=== PATIENT | male | born 1935 | race Caucasian/White ===

== ENCOUNTER → 2016-10-14 | Outpatient (CLI) | payer OTHER | LOC: FIMAGING 15:50 | PROVIDERS: ATTEND Internal Medicine Infectious Disease | DX: A31.0 Pulmonary mycobacterial infection (principal); K44.9 Diaphragmatic hernia without obstruction or gangrene; I25.10 Atherosclerotic heart disease of native coronary artery without angina pectoris ==

== ENCOUNTER 2016-10-24 13:33 | Inpatient (IN) | payer OTHER ==
--- NOTE | 2016-10-24 14:09 | EDPHY ---
H & P Stated Complaint: Having more problems with O2 levels over past few days; increased MEDINA Source: Patient, Family Exam Limitations: No limitations - Personal History Current Tetanus Diphtheria and Acellular Pertussis (TDAP): Unsure Tetanus Vaccine Date: UNSURE - Medical/Surgical History Hx Asthma: No Hx Chronic Respiratory Disease: Yes Hx Diabetes: No Hx Cardiac Disease: No Hx Renal Disease: No Hx Cirrhosis: No Hx Alcoholism: No Hx HIV/AIDS: No Hx Splenectomy or Spleen Trauma: No Other PMH: Chronic respiratory disease, appendectomy; constipation; green light procedure for enlarged prostate on 06/05/15. - Social History Smoking Status: Former smoker HPI/ROS: CHIEF COMPLAINT: Shortness of breath, low oxygen saturation HISTORY OF PRESENT ILLNESS: Patient complains of increasing shortness of breath and decreasing oxygen saturation. He has history of bronchiectasis and ANGELA. This has been present for nearly 3 years. He has been dependent on 2 L oxygen for the past year. He was doing well until several weeks ago. At that time he noticed some increasing shortness of breath. He noticed a significant frame changer the past 2-3 days. Prior to this, he was able to ambulate nearly 1/ 4 mi and exercise regularly with his supplemental oxygen. Two days ago he has a significant decrease in his ability to ambulate. He says that he has difficulty walking to other rooms in the home without having to stop. He does have a pulse oximeter at home, he notes that he will drop into the upper 70s when ambulating slowly. He has had no chest pain or fever. Minimal cough and nothing new from his baseline. No back pain. No abdominal pain. No lightheadedness or syncope. Does have a history of PE that treated with Coumadin last year. He has been off anticoagulants for the past several months. 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 He primarily sees Dr. Davin Dejesus for this. He had a CT scan on May 16 of this month that showed some worsening of the bronchiectasis and mucous plugging. He has also seen by certified technician Dr. Martin , but has not seen him since last year. REVIEW OF SYSTEMS: Ten systems reviewed and are negative unless otherwise noted in the HPI PERTINENT MEDICAL HISTORY: Mycobacterium avium intracellular SOCIAL HISTORY: Nonsmoker. Lives at home with his . EXAMINATION General Appearance: Alert, no distress Head: normocephalic, atraumatic Eyes: Pupils equal and round, no conjunctival pallor or injection ENT, Mouth: Mucous membranes moist Neck: Normal inspection, supple, non-tender Respiratory: Scattered rhonchi and crackles throughout. Diminishment throughout. No wheezing. No retractions. No respiratory distress. Cardiovascular: Regular rate and rhythm. No murmur. Gastrointestinal: Abdomen is soft and nontender Back: non-tender, no bony abnormalities Neurological: GCS 15. A&O, nonfocal, normal gait Skin: Warm and dry, no rash Extremities: Nontender, no pedal edema Psychiatric: Mood and affect normal DIFFERENTIAL DIAGNOSES: Including but not limited to bronchiectasis, mucus plugging, pneumonia, bronchitis, PE MDM: 2:00 p.m. Increasing dyspnea the patient with bronchiectasis and mycobacterium avium intracellular. No chest pain. He was in the upper 80s ambulating with his oxygen on to his room. He reports as low as upper 70s at home with his 2 L oxygen until he rest. Vital signs are otherwise stable in no acute distress. 2:30 p.m. I discussed the case with Dr. Montenegro. He will personally evaluate the patient. We are in agreement that the patient will need a CT scan of the chest with angiography. Most recent CT scan was without contrast. Given his history of PE, recent abrupt change in dyspnea, and hypoxia, I have ordered the CT angio of the chest. 3:12 p.m. Patient has been evaluated by his physician Dr. Davin Dejesus. Dr. Dejesus and Dr. Montenegro discussed the case. They are in agreement to proceed with the plan of CT angiography and admission for further care. He remained stable in no acute distress with mild hypoxia with exertion. 3:29 p.m. Notified by radiologist Dr. Garduno. CT scan of the chest reveals no PE. There are other findings as noted in the impression, consistent with that of the CT scan on October 14. Proceed with admission for symptomatic care and possible therapeutic bronchoscopy. Patient and spouse are requesting this and comfortable with this plan. 3:50 p.m. I discussed the case with Dr. Louis. She has admitted to her service. He is admitted to [facility], in stable condition SUPERVISION: Patient was evaluated in conjunction with the supervising physician. Please see their note for details. (Lauro Krishna) Constitutional: Initial Vital Signs Temperature (C) 36.4 C 10/24/16 13:36 Heart Rate 81 10/24/16 13:36 Respiratory Rate 20 10/24/16 13:36 Blood Pressure 121/60 H 10/24/16 13:36 O2 Sat (%) 91 L 10/24/16 13:36 O2 Delivery Mode Nasal Cannula O2 (L/minute) 2 Allergies/Adverse Reactions: No Known Allergies Allergy (Verified 10/24/16 13:35) Home Medications: Medication Instructions Recorded Ipratropium/Albuterol [Duoneb (*)] 3 ml IH DAILY 08/31/15 Medical Decision Making - Diagnostics Imaging Results: Imaging Impressions Chest X-Ray 10/24/16 13:57 Impression: Exacerbation of chronic airways disease and bronchiectasis with probable worsening atelectasis and mucous plugging in the lower lung zones. Chest/Thorax CTA 10/24/16 14:32 Impression: 1. No visible pulmonary embolus. 2. Stable findings of ANGELA. 3. Additional findings as above. Findings discussed with Lauro Krishna on 10/24/2016 at 1525 hours. ED Course/Re-evaluation: I also saw the patient and reviewed his history of previous pulmonary embolus and noncompliance with medications secondary side effects. He has mac. I reviewed his CT from a week ago that was noncontrast that showed extensive mucous plugging. Exam shows some inspiratory expiratory rhonchi. I recommended CT angiogram chest to rule out pulmonary embolus and the patient agrees to this. I have also discussed patient's condition and case with Dr. Dejesus, infectious Disease, who agrees with treatment plan (Alberto Montenegro) - Data Points Laboratory Results: Laboratory Results 10/24/16 14:05 10/24/16 14:05 10/24/16 10/24/16 10/24/16 14:20 14:05 14:05 WBC RBC Hgb Hct MCV MCH MCHC RDW Plt Count MPV Neut % (Auto) Lymph % (Auto) Harvey % (Auto) Eos % (Auto) Baso % (Auto) Nucleat RBC Rel Count Absolute Neuts (auto) Absolute Lymphs (auto) Absolute Monos (auto) Absolute Eos (auto) Absolute Basos (auto) Absolute Nucleated RBC Immature Gran % Immature Gran # PT 14.2 SEC SEC REJ (12.0-15.0) INR 1.11 TNP (0.83-1.16) APTT 27.7 SEC SEC TNP (23.0-38.0) VBG Lactic Acid Sodium 130 mEq/L L mEq/L (134-144) Potassium 4.0 mEq/L mEq/L (3.5-5.2) Chloride 98 mEq/L mEq/L (97-110) Carbon Dioxide 23 mEq/l mEq/l (22-31) Anion Gap 9 mEq/L mEq/L (8-16) BUN 10 mg/dL mg/dL (7-23) Creatinine 0.7 mg/dL mg/dL (0.7-1.3) Estimated GFR > 60 Glucose 163 mg/dL H mg/dL (70-100) Calcium 9.0 mg/dL mg/dL (8.5-10.4) Troponin I < 0.012 ng/mL ng/mL (0-0.034) NT-Pro-B Natriuret Pep 366 pg/mL pg/mL (0-450) 10/24/16 10/24/16 14:05 14:05 WBC 14.20 10^3/uL H 10^3/uL (3.80-9.50) RBC 4.25 10^6/uL L 10^6/uL (4.40-6.38) Hgb 13.7 g/dL g/dL (13.7-17.5) Hct 39.5 % L % (40.0-51.0) MCV 92.9 fL fL (81.5-99.8) MCH 32.2 pg pg (27.9-34.1) MCHC 34.7 g/dL g/dL (32.4-36.7) RDW 14.3 % % (11.5-15.2) Plt Count 322 10^3/uL 10^3/uL (150-400) MPV 10.2 fL fL (8.7-11.7) Neut % (Auto) 77.5 % H % (39.3-74.2) Lymph % (Auto) 10.7 % L % (15.0-45.0) Harvey % (Auto) 9.1 % % (4.5-13.0) Eos % (Auto) 1.6 % % (0.6-7.6) Baso % (Auto) 0.4 % % (0.3-1.7) Nucleat RBC Rel Count 0.0 % % (0.0-0.2) Absolute Neuts (auto) 11.00 10^3/uL H 10^3/uL (1.70-6.50) Absolute Lymphs (auto) 1.52 10^3/uL 10^3/uL (1.00-3.00) Absolute Monos (auto) 1.29 10^3/uL H 10^3/uL (0.30-0.80) Absolute Eos (auto) 0.23 10^3/uL 10^3/uL (0.03-0.40) Absolute Basos (auto) 0.06 10^3/uL 10^3/uL (0.02-0.10) Absolute Nucleated RBC 0.00 10^3/uL 10^3/uL (0-0.01) Immature Gran % 0.7 % % (0.0-1.1) Immature Gran # 0.10 10^3/uL 10^3/uL (0.00-0.10) PT INR APTT VBG Lactic Acid 1.4 mmol/L mmol/L (0.7-2.1) Sodium Potassium Chloride Carbon Dioxide Anion Gap BUN Creatinine Estimated GFR Glucose Calcium Troponin I NT-Pro-B Natriuret Pep Medications Given: Discontinued Medications Sodium Chloride (Ns) 500 mls @ 0 mls/hr IV ONCE ONE; Wide Open PRN Reason: Protocol Stop: 10/24/16 14:33 Last Admin: 10/24/16 14:40 Dose: 500 mls Departure - Departure Disposition: [facility] Clinical Impression: Mycobacterium avium-intracellulare complex, Hypoxia Bronchiectasis Qualifiers: Bronchiectasis type: with acute exacerbation Qualified Code(s): J47.1 - Bronchiectasis with (acute) exacerbation Condition: Good
[2016-10-24 14:20] LABS: % IMMATURE GRANULYOCYTES 0.7 % (0.0-1.1); ADD DIFF? NO; ADD MORPH? NO; ADD SCAN? NO; ATYPICAL LYMPHOCYTE FLAG 20 (0-99); FRAGMENT RBC FLAG 0 (0-99); HEMATOCRIT 39.5 % (40.0-51.0); HEMOGLOBIN 13.7 g/dL (13.7-17.5); LEFT SHIFT FLG 10 (0-99); LIPEMIA HEMOLYSIS FLAG 90 (0-99); MEAN CELL HEMOGLOBIN 32.2 pg (27.9-34.1); MEAN CELL HEMOGLOBIN CONCENTR. 34.7 g/dL (32.4-36.7); MEAN CELL VOLUME 92.9 fL (81.5-99.8); MEAN PLATELET VOLUME 10.2 fL (8.7-11.7); PLATELET CLUMPS FLAG 10 (0-99); PLATELET COUNT 322 10^3/uL (150-400); RED BLOOD CELL COUNT 4.25 10^6/uL (4.40-6.38); RED CELL DISTRIBUTION WIDTH 14.3 % (11.5-15.2)
[2016-10-24] MEDS ORDERED: NS 500 ML IV ONE (14:32)
[2016-10-24 14:38] LABS: ANION GAP 9 mEq/L (8-16); CARBON DIOXIDE 23 mEq/l (22-31); CHLORIDE 98 mEq/L (97-110); CREATININE 0.7 mg/dL (0.7-1.3); GLOMERULAR FILTRATION RATE > 60; GLUCOSE 163 mg/dL (70-100); SODIUM 130 mEq/L (134-144)
[2016-10-24 14:40] LABS: APTT 27.7 SEC (23.0-38.0); INR 1.11 (0.83-1.16); PROTIME(PATIENT) 14.2 SEC (12.0-15.0)
[2016-10-24] MEDS ORDERED: IOPAMIDOL (ISOVUE 370) 100 ML BTL IV ONE (14:47)
[2016-10-24 14:49] LABS: TROPONIN I < 0.012 ng/mL (0-0.034)
[2016-10-24] MEDS ORDERED: PROMETHAZINE HCL 25 MG/ML INJ IVP PRN (17:11)
[2016-10-24] MEDS ORDERED: ONDANSETRON 4 MG/2 ML VIAL IVP PRN (17:11)
[2016-10-24] MEDS ORDERED: oxyCODONE IR 5 MG TAB PO PRN (17:11)
[2016-10-24] MEDS ORDERED: ALBUTEROL 3 ML DEYVIAL IH PRN (17:11)
[2016-10-24] MEDS ORDERED: ONDANSETRON DISINTEGRATING 4 MG TAB PO PRN (17:11)
[2016-10-24] MEDS ORDERED: ACETAMINOPHEN 325 MG TAB PO PRN (17:11)
[2016-10-24] MEDS ORDERED: ACETYLCYSTEINE 10% 30 ML VIAL IH SCH (18:00)
[2016-10-24 19:06] LABS: COLOR PALE YELLOW; LEUKOCYTE ESTERASE,URINE NEGATIVE (NEGATIVE); NITRITE,URINE NEGATIVE (NEGATIVE)
--- NOTE | 2016-10-24 19:16 | PDGENHP ---
History and Physical - Chief Complaint MEDINA - History of Present Illness 80 yo M with PMH of severe bronchiectasis and ANGELA infection that he has been off of antibiotics for due to personal choice for quite some time (sounds like at least one year) presenting with increased dyspnea on exertion and desaturations to the low 70s with even minimal exertion while on his usual 2L of supplemental oxygen. He notes that he has had a subacute decline over the last year but had been relatively stable up until the last several days when he had what he describes as a "crisis". He notes that he couldn't even get to the car or to the bathroom without becoming incredibly short of breath. At rest he feels pretty much fine. He denies fevers, chills, chest pain, palpitations or aspirating recently. He does also note that he generally is able to keep his lungs healthy by coughing and getting up mucous, but in the last few days he has not been able to get any mucous up. In terms of the ANGELA infection, he states that he has stopped seeing [facility] and sees Dr. Dejesus intermittently and is hoping that he will be able to figure out a treatment for him other than antibiotics. It sounds as if he had an episode of near syncope 1 year ago that occurred shortly after taking the antibiotics, and he and his were concerned this was a response to the abx and they decided he should stop taking them. History Information - Allergies/Home Medication List Allergies/Adverse Reactions: No Known Allergies Allergy (Verified 10/24/16 13:35) Home Medications: Ipratropium/Albuterol [Duoneb (*)] 3 ml IH DAILY 08/31/15 [Last Taken Unknown] I have personally reviewed and updated: family history, medical history, social history, surgical history - Past Medical History pulmonary embolism (diagnosed 1 year ago, off of AC) Additional medical history: severe bronchiectasis. ANGELA. Chronic hypoxic respiratory failure on 2L. chronic dysphagia. BPH - Surgical History Additional surgical history: laser prostate surgery - Family History Positive for: cancer (father of kidney cancer) - Social History Smoking Status: Former smoker Alcohol Use: Rarely Drug Use: None Additional social history: , retired from [employer] Review of Systems ROS: 10pt was reviewed & negative except for what was stated in HPI & below Physical Exam Temp Pulse Resp BP Pulse Ox 36.9 C 64 20 140/83 H 97 10/24/16 16:55 10/24/16 16:55 10/24/16 16:55 10/24/16 16:55 10/24/16 16:55 O2 (L/minute) 2 Constitutional: no apparent distress, not in pain, chronically ill appearing Eyes: PERRL, anicteric sclera Ears, Nose, Mouth, Throat: moist mucous membranes, hearing normal Cardiovascular: regular rate and rhythym, no murmur, rub, or gallop, No edema Respiratory: no respiratory distress, reduced air movement, No respiratory distress Gastrointestinal: normoactive bowel sounds, soft, non-tender abdomen, no palpable masses Skin: warm, normal color Musculoskeletal: full muscle strength, no muscle tenderness Neurologic: AAOx3 Psychiatric: interacting appropriately, not anxious, not encephalopathic Lab Data & Imaging Review 10/24/16 14:05 10/24/16 14:05 WBC 14.20 10^3/uL (3.80-9.50) H 10/24/16 14:05 RBC 4.25 10^6/uL (4.40-6.38) L 10/24/16 14:05 Hgb 13.7 g/dL (13.7-17.5) 10/24/16 14:05 Hct 39.5 % (40.0-51.0) L 10/24/16 14:05 MCV 92.9 fL (81.5-99.8) 10/24/16 14:05 MCH 32.2 pg (27.9-34.1) 10/24/16 14:05 MCHC 34.7 g/dL (32.4-36.7) 10/24/16 14:05 RDW 14.3 % (11.5-15.2) 10/24/16 14:05 Plt Count 322 10^3/uL (150-400) 10/24/16 14:05 MPV 10.2 fL (8.7-11.7) 10/24/16 14:05 Neut % (Auto) 77.5 % (39.3-74.2) H 10/24/16 14:05 Lymph % (Auto) 10.7 % (15.0-45.0) L 10/24/16 14:05 Wise % (Auto) 9.1 % (4.5-13.0) 10/24/16 14:05 Eos % (Auto) 1.6 % (0.6-7.6) 10/24/16 14:05 Baso % (Auto) 0.4 % (0.3-1.7) 10/24/16 14:05 Nucleat RBC Rel Count 0.0 % (0.0-0.2) 10/24/16 14:05 Absolute Neuts (auto) 11.00 10^3/uL (1.70-6.50) H 10/24/16 14:05 Absolute Lymphs (auto) 1.52 10^3/uL (1.00-3.00) 10/24/16 14:05 Absolute Monos (auto) 1.29 10^3/uL (0.30-0.80) H 10/24/16 14:05 Absolute Eos (auto) 0.23 10^3/uL (0.03-0.40) 10/24/16 14:05 Absolute Basos (auto) 0.06 10^3/uL (0.02-0.10) 10/24/16 14:05 Absolute Nucleated RBC 0.00 10^3/uL (0-0.01) 10/24/16 14:05 Immature Gran % 0.7 % (0.0-1.1) 10/24/16 14:05 Immature Gran # 0.10 10^3/uL (0.00-0.10) 10/24/16 14:05 PT 14.2 SEC (12.0-15.0) 10/24/16 14:20 INR 1.11 (0.83-1.16) 10/24/16 14:20 APTT 27.7 SEC (23.0-38.0) 10/24/16 14:20 VBG Lactic Acid 1.4 mmol/L (0.7-2.1) 10/24/16 14:05 Sodium 130 mEq/L (134-144) L 10/24/16 14:05 Potassium 4.0 mEq/L (3.5-5.2) 10/24/16 14:05 Chloride 98 mEq/L (97-110) 10/24/16 14:05 Carbon Dioxide 23 mEq/l (22-31) 10/24/16 14:05 Anion Gap 9 mEq/L (8-16) 10/24/16 14:05 BUN 10 mg/dL (7-23) 10/24/16 14:05 Creatinine 0.7 mg/dL (0.7-1.3) 10/24/16 14:05 Estimated GFR > 60 10/24/16 14:05 Glucose 163 mg/dL (70-100) H 10/24/16 14:05 Calcium 9.0 mg/dL (8.5-10.4) 10/24/16 14:05 Troponin I < 0.012 ng/mL (0-0.034) 10/24/16 14:05 NT-Pro-B Natriuret Pep 366 pg/mL (0-450) 10/24/16 14:05 Visualized and Interpreted Chest x-ray results: Yes Chest X-Ray results: other (hyperexpanded) Visualized and Interpreted imaging results: Yes Interpretation: CTA--no PE, bronchiectasis, mucus plugging, multiple nodules-- stable c/w ANGELA Assessment & Plan Assessment: Bronchiectasis (Acute) Mycobacterium avium-intracellulare complex (Acute) Hypoxia (Acute) 80 yo M with hx of ANGELA and severe bronchiectasis pw acute on chronic hypoxic respiratory failure # acute on chronic hypoxic respiratory failure: with untreated ANGELA infection as well as severe bronchiectasis being the underlying etiology. CT chest w/o PE or other acute changes to explain abrupt worsening and significant desats on usual o2, suspect related largely to mucus plugging and progression of disease. Consulted pulmonary and plan is for bronch in am. For now, scheduled duonebs, albuterol prn, steroids, mucomyst, CPT vest, flutter valve, IS. # ANGELA: with chronic infection and plan for prolonged triple antibiotic therapy but patient has been unwilling to take abx for quite some time. He does follow with ID and will ask for them to consult while in house as well. Difficult to get a good sense from patient why he has refused abx other than the episode of near syncope and perhaps a lifelong reluctance to take antibiotics # severe bronchiectasis: as above, significant mucus plugging as well, bronch in am. Likely will continue to progress and decline. 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 Old records reviewed and summarized as above. Care plan reviewed with ED and DR. Longo of pulmonary. Further hx obtained from patients present at bedside.
[2016-10-24] MEDS: IPRATROPIUM/ALBUTEROL 3 ML DEYVIAL IH SCH (20:04)
[2016-10-24] MEDS: ACETYLCYSTEINE 10% 30 ML VIAL IH SCH (20:05)
[2016-10-24] MEDS: methylPREDNISolone SOD SUCC 125 MG/2 ML VIAL IVP SCH (20:50)
[2016-10-25] MEDS: methylPREDNISolone SOD SUCC 125 MG/2 ML VIAL IVP SCH ×2 (03:30→09:30)
[2016-10-25 06:12] LABS: % IMMATURE GRANULYOCYTES 0.8 % (0.0-1.1); ABSOLUTE IMMATURE GRANULOCYTES 0.07 10^3/uL (0.00-0.10); ADD DIFF? NO; ADD MORPH? NO; ADD SCAN? NO; ATYPICAL LYMPHOCYTE FLAG 20 (0-99); FRAGMENT RBC FLAG 0 (0-99); LEFT SHIFT FLG 10 (0-99); LIPEMIA HEMOLYSIS FLAG 90 (0-99); MEAN CELL HEMOGLOBIN 31.7 pg (27.9-34.1); MEAN CELL HEMOGLOBIN CONCENTR. 34.1 g/dL (32.4-36.7); MEAN CELL VOLUME 92.8 fL (81.5-99.8); MEAN PLATELET VOLUME 9.9 fL (8.7-11.7); PLATELET CLUMPS FLAG 0 (0-99); PLATELET COUNT 331 10^3/uL (150-400); RED BLOOD CELL COUNT 4.42 10^6/uL (4.40-6.38); RED CELL DISTRIBUTION WIDTH 14.2 % (11.5-15.2)
--- NOTE | 2016-10-25 06:18 | CPEKG ---
Heart Rate: 93 RR Interval: 645 P-R Interval: 212 QRSD Interval: 80 QT Interval: 368 QTC Interval: 458 P [place]: 74 QRS [place]: 76 EKG Severity - BORDERLINE ECG - EKG Impression: SINUS RHYTHM Electronically Signed By: Margarito Troy 27-Oct-2016 09:04:47
[2016-10-25] MEDS: IPRATROPIUM/ALBUTEROL 3 ML DEYVIAL IH SCH ×2 (06:20→11:30)
[2016-10-25 06:21] LABS: ANION GAP 8 mEq/L (8-16); CALCIUM 8.9 mg/dL (8.5-10.4); CARBON DIOXIDE 27 mEq/l (22-31); CHLORIDE 100 mEq/L (97-110); CREATININE 0.7 mg/dL (0.7-1.3); GLOMERULAR FILTRATION RATE > 60; GLUCOSE 153 mg/dL (70-100); POTASSIUM 4.8 mEq/L (3.5-5.2); SODIUM 135 mEq/L (134-144)
[2016-10-25 06:32] LABS: TROPONIN I < 0.012 ng/mL (0-0.034)
[2016-10-25] MEDS ORDERED: MIDAZOLAM 2 MG/2 ML VIAL ONE (08:00)
[2016-10-25] MEDS ORDERED: fentaNYL 100 MCG/2 ML INJ ONE (08:00)
[2016-10-25] MEDS ORDERED: LIDOCAINE 1% 300 MG/30 ML SDV ONE (08:06)
[2016-10-25] MEDS ORDERED: LIDOCAINE 2% JELLY 5 ML TUBE ONE (08:06)
[2016-10-25 08:09] VITALS: BP 120/54; TEMP 97.6
[2016-10-25] MEDS: ACETYLCYSTEINE 10% 30 ML VIAL IH SCH ×2 (08:11→11:30)
--- NOTE | 2016-10-25 08:30 | HOSPPROG ---
Hospitalist Progress Note Assessment/Plan: #Acute on chronic hypoxic resp failure: suspect mucus plug. Bronch normal. Cultures pending #ANGELA infection: FU Dr. Dejesus #DC today Subjective: no SOB Objective: Vital Signs Temp Pulse Resp BP Pulse Ox 36.4 C 96 18 120/54 L 2 L 10/25/16 08:04 10/25/16 08:04 10/25/16 08:04 10/25/16 08:04 10/25/16 08:04 Laboratory Results 10/25/16 06:00 10/25/16 06:00 10/24/16 10/25/16 10/26/16 05:59 05:59 05:59 Intake Total 1000 Output Total 2 Balance 998 PT 14.2 SEC (12.0-15.0) 10/24/16 14:20 INR 1.11 (0.83-1.16) 10/24/16 14:20 - Physical Exam Constitutional: no apparent distress, other (thin) Eyes: PERRL Ears, Nose, Mouth, Throat: moist mucous membranes, hearing normal Cardiovascular: regular rate and rhythym, no murmur, rub, or gallop Respiratory: no respiratory distress, no rales or rhonchi Gastrointestinal: normoactive bowel sounds, soft, non-tender abdomen Genitourinary: no bladder fullness Skin: warm Musculoskeletal: full muscle strength Neurologic: AAOx3 Psychiatric: interacting appropriately ICD10 Worksheet Patient Problems: Problems Problem Status Onset Bronchiectasis Acute Bronchiectasis Acute Dyspnea Acute Hyponatremia Acute Hypoxia Acute Leukocytosis Acute Mycobacterium avium-intracellulare complex Acute Urinary tract infection Acute
[2016-10-25] MEDS ORDERED: ENOXAPARIN 40 MG/0.4 ML SYR SC SCH (09:00)
--- NOTE | 2016-10-25 10:13 | GOP ---
[f rep st] OPERATIVE REPORT DATE OF OPERATION: 10/25/2016 SURGEON: Hussein Longo MD ANESTHESIA: Conscious sedation was achieved using a total of 3 mg IV Versed and 50 mcg of IV fentan yl without complication. PREOPERATIVE DIAGNOSIS: POSTOPERATIVE DIAGNOSIS: PROCEDURE PERFORMED: Bronchoalveolar lavage with conscious sedation. FINDINGS: INDICATIONS: Bronchiectasis. DESCRIPTION OF PROCEDURE: After an appropriate time-out was performed, topical lidocaine was spraye d in the oropharynx followed by advancement of the bronchoscope with additional lidocaine to vocal c ords. Of note, the vocal cords did not have paradoxical movement, but they did not open dramaticall y when taking a deep breath. Once inside the trachea, it appeared to be midline. There were small mucus plugs adherent to the wall. The main willow was very sharp, and both main stem bronchi were s lightly dilated. There was evidence of bronchiectasis and pitting in the right upper lobe orifice. There were minimal secretions seen throughout with tiny mucus plugs in scattered locations, but no major mucus plugging, no masses. There was erythema of the mucosa throughout the airways. In the a nterior segment of the right lower lobe, a bronchoalveolar lavage was performed using 3 aliquots of 40 cc of normal saline. None of these were bloody. Approximately 70 cc were returned of cloudy, ye llow-appearing fluid. In the left side, there was a similar appearance with minimal to no secretion s and no endobronchial lesions. Overall, the patient tolerated the procedure well, and there were n o complications. CONSENT: Informed consent was obtained from the patient prior to the administration of anesthesia. The risks and benefits of both the procedure and conscious sedation were explained in detail, and t he patient agreed to proceed. /[id number]/MODL
--- NOTE | 2016-10-25 10:53 | GCON ---
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 He was diagnosed in May of 2015 and did star t triple antibiotic therapy under the guidance of Infectious Disease. According to his , rosalino angulo, at the time he was traveling and had a near syncopal episode that resolved. He had a second epis ode of not feeling well on return from his travels, but no LFTs were checked at the time, and he has been reluctant to use the antibiotic since then. He has maintained reasonably well and is normally followed by Dr. Martin and Dr. Dejesus. He manages his bronchiectasis with once daily vibrating vest , DuoNeb, and postural drainage twice a day. At one time he was seeing Dr. Juan C Robbins at [facility] but has decided to stop going there because of the inconvenience. He maintains his oxygen satur ation using a concentrator at home and a portable ambulatory concentrator usually on setting 2, and at 2 recent outpatient visits had an oxygen saturation of 92%. He saw Dr. Dejesus on 10/22/2016 comp laining of shortness of breath and productive cough which were chronic. He urged antibiotics or sug gested that he should expect his lung disease to get worse, and the patient chose to discuss this at a later date. On 10/24, however, he developed increasing shortness of breath, and his oxygen satur ation dipped down to the 70% range while ambulating and was therefore brought to the hospital. He n oted that his breathing had been getting worse over the last few weeks, especially the last few days , and was requesting a bronchoscopy. On arrival, his oxygen saturation was relatively stable and wa s afebrile and explained the historical details to me this morning. PAST MEDICAL HISTORY: Includes: 1. Bronchiectasis, as described above. 2. Coronary artery disease. 3. 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 4. A tiny pulmonary embolism. I believe that was a couple years ago, and he did receive Coumadin t herapy for that. 5. Chronic hypoxemia on baseline 2 L/minute. 6. I think prostate cancer. I am not too sure about that. SURGICAL HISTORY: Includes inguinal hernia repair, tonsillectomy, appendectomy, and what sounds to be radiation beads in the past. SOCIAL HISTORY: He has a remote, nearly negligible smoking history. Drinks occasional alcohol but no recreational drugs. He has property in both [place] and [place] as well as [place] and serna s significantly better oxygen saturations at those levels. FAMILY HISTORY: Noncontributory, though does lack the Immotile Cilia syndrome. PHYSICAL EXAM: VITAL SIGNS: As I said, he has been afebrile. His blood pressure 120/54, heart rat e of 96, respirations 18, oxygen saturation was 98% on 2 L nasal cannula. GENERAL: He was awake an d alert. Thin but not cachectic. Spoke in full sentences, although his voice was quite quiet while talking to me this morning, which he said was baseline. He did not using accessory muscles for valerie athing. HEENT: Pupils equally round and reactive to light. Nonicteric and noninjected. Mucous me mbranes are moist without erythema. NECK: Supple without adenopathy or jugular vein distention. L UNGS: Breath sounds were somewhat coarse throughout, but no focal wheezing or decreased dullness or consolidation. HEART: Regular rate and rhythm without obvious murmur. ABDOMEN: Soft, nontender, nondistended without hepatosplenomegaly. EXTREMITIES: No clubbing, cyanosis, or edema. NEUROLOGI C: Nonfocal, including cranial nerves and deep tendon reflexes. LABORATORY DATA: His white count was 14.2 on arrival and after given steroids dropped to 9.2, hemat ocrit is 41, platelets of 331. Basic metabolic panel was normal. Urinalysis was normal. CT scan shows significant bronchiectasis without pulmonary embolism, particularly in the anterior ri ght lower lobe. There is some mucus plugging and multiple stable lung nodules, mildly prominent rig ht hilar lymph nodes. He has a moderate hiatal hernia. ASSESSMENT AND PLAN: 1. Significant bronchiectasis with oxygen desaturation. It is quite probable and possible that thi s is related to a mucus plug that has subsequently resolved. I think it was reasonable to proceed w ith bronchoscopy, which was done and dictated separately. There were no significant secretions duri ng the bronchoscopy. My suspicion is that it has been mobilized since then. The infiltrates on his CT scan were not dramatically changed, and there was no pulmonary embolism and no evidence of cardi ovascular issue to cause his transient hypoxemia. I had a lengthy discussion with both him and his after the bronchoscopy, talking about his management of his bronchiectasis. I urged them to fo llow the advice of his infectious disease doctor and use his antibiotics as prescribed. The episode that he was concerned about may not have been, in fact, related to the medications and could certai nly have been about oxygen saturation since it was, again, a transient episode. We discussed the ri sks including liver toxicity with those medications and that he would certainly reconsider those in the near future. In terms of mechanical management of that, I suggested that he use his vibrating v est twice a day in conjunction with his postural drainage, which he is already doing. He might also benefit from hypertonic saline nebulizers in addition to his DuoNeb. I might also consider an inha led corticosteroid to help minimize secretions moving forward. 2. Hypoxemia. This is a chronic problem. He is using a portable concentrator, and I suggested wei t he would just have to watch his settings very closely, and whatever it takes to maintain a saturat ion greater than 90% would be the appropriate level. /[id number]/MODL
[2016-10-25] MEDS ORDERED: MIDAZOLAM 2 MG/2 ML VIAL IVP ONE (11:05)
[2016-10-25] MEDS ORDERED: fentaNYL 100 MCG/2 ML INJ IVP ONE (11:05)
--- NOTE | 2016-10-25 12:29 | GDS ---
[f rep st] DISCHARGE SUMMARY DISCHARGE DIAGNOSES: 1. Dyspnea on exertion. 2. Acute on chronic hypoxic respiratory failure. 3. Mycobacterium avium-intracellulare severe bronchiectasis. 4. History of pulmonary embolism. 5. Leukocytosis. 6. Hyponatremia. HISTORY OF PRESENT ILLNESS: Patient is a 80-year-old male with history of severe bronchitis and a ANGELA infection in which he has been off antibiotics for at least a year per his personal choice who presented with increased dyspnea on exertion. He said his oxygen level dropped to the low 70s with even minimal exertion while using his normal 2 L of oxygen. He notes he has had a subacute decline over the last year but has been fairly stable up until the last several days which he describes as a "crisis." He noted that he could not even get to the car or the bathroom without becoming incredibly short of breath, but is fine at rest. Denies any fevers, chills or sweats. No nausea, vomiting, or diarrhea. In terms of the ANGELA infection, he intermittently sees Dr. Dejseus and was hoping to find another treatment besides antibiotics, because he states he had some sort of reaction. He had a near syncopal episode which he attributes to the antibiotics. HOSPITAL COURSE BY PROBLEM: 1. Acute on chronic hypoxemic respiratory failure: CT chest was negative for pulmonary embolism or acute infection. Likely mucous plug. Bronchoscopy was performed this morning, was unrevealing. Cultures are pending, which can be followed up as an outpatient. 2. 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 Martin, and continue aggressive pulmonary toileting. 3. Mycobacterium avium-intracellulare infection: The patient is previously seen at [facility], but most recently with Dr. Dejesus. Patient has personally chosen to take himself off antibiotics due to a near syncopal episode a year ago which he attributes to the antibiotics. I will have him follow up with Dr. Dejesus. At that time, culture data can be reviewed that was done here today. 4. History of pulmonary embolism. Off anticoagulation. CTA was negative for pulmonary embolism. 5. Leukocytosis: Resolved. There is no evidence of a new infection. He remains afebrile. 6. Hypovolemic/hyponatremia: This resolved. DISPOSITION: Patient stable for discharge. NEW MEDICATIONS: None. LABORATORY DATA: Pending respiratory cultures. FOLLOWUP: 1. Dr. Martin, Pulmonology. 2. Dr. Dejesus with Infectious Disease. /[id number]/MODL MTDD
[2016-10-25 13:00] VITALS: PULSE 80; RESP 22; O2SAT 100
== END 2016-10-25 13:00 | disposition home or self-care (01) | DRG 190 ==
LOC: F2N 17:43
PROVIDERS: ADMIT Internal Medicine; ATTEND Internal Medicine
PROC: 0B968ZX Drainage of Right Lower Lobe Bronchus, Via Natural or Artificial Opening Endoscopic, Diagnostic (ICD-10-PCS; principal; 2016-10-25 08:20)
DX: J47.9 Bronchiectasis, uncomplicated (principal); A31.0 Pulmonary mycobacterial infection; J96.21 Acute and chronic respiratory failure with hypoxia; E87.1 Hypo-osmolality and hyponatremia; R13.10 Dysphagia, unspecified; I25.10 Atherosclerotic heart disease of native coronary artery without angina pectoris; Z87.891 Personal history of nicotine dependence; Z86.711 Personal history of pulmonary embolism; Z79.01 Long term (current) use of anticoagulants
CPT/HCPCS: 92610-GN; G8996-GN-CI; G8997-GN-CI; G8998-GN-CI; J0171; J1650; J2250; J3010; Q9967

== ENCOUNTER 2016-11-01 08:51 | Emergency (ER) | payer OTHER ==
--- NOTE | 2016-11-01 09:04 | CPEKG ---
Heart Rate: 71 RR Interval: 845 P-R Interval: 180 QRSD Interval: 88 QT Interval: 400 QTC Interval: 435 P [place]: 65 QRS [place]: 74 T Wave [place]: 40 EKG Severity - NORMAL ECG - EKG Impression: SINUS RHYTHM Electronically Signed By: Davin Reynaga 01-Nov-2016 14:01:43
--- NOTE | 2016-11-01 09:26 | EDPHY ---
H & P <Davin Reynaga Mitzy - Last Filed: 11/01/16 10:22> Stated Complaint: Shortness of breath Source: Patient, Family - Personal History Tetanus Vaccine Date: UNSURE - Medical/Surgical History Hx Asthma: No Hx Chronic Respiratory Disease: Yes Hx Diabetes: No Hx Cardiac Disease: No Hx Renal Disease: No Hx Cirrhosis: No Hx Alcoholism: No Hx HIV/AIDS: No Hx Splenectomy or Spleen Trauma: No Other PMH: Chronic respiratory disease, appendectomy; constipation; green light procedure for enlarged prostate on 06/05/15. - Social History Smoking Status: Former smoker <Nalini Rinaldi - Last Filed: 11/01/16 10:41> Time Seen by Provider: 11/01/16 09:01 HPI/ROS: CHIEF COMPLAINT: Shortness of breath HISTORY OF PRESENT ILLNESS: This is an 81-year-old male presenting to the emergency department complaining of increased shortness of breath with an increased oxygen knee. Patient states that last night he was taking his pills and he thinks he swallowed 1 into his trachea but then he was able to cough the pill up. Presenting to the emergency department complaining that since about 6 o'clock this morning he feels like he has not been able to catch his breath, he did utilize his nebulizer machine and was able to eat breakfast without any difficulty but states that he feels like he is having a hard time breathing" I feel like I am having to puff hard to take a deep breath" patient states he normally uses 2-2.5 L home O2 at night, during the day he utilizes a portable oxygen which" I have to bump it up to 3 L because I do not think the portable oxygen is working effectively" denies any chest pain no other complaints REVIEW OF SYSTEMS: Constitutional: No fever, no chills. Eyes: No discharge. ENT: No sore throat. Cardiovascular: No chest pain, no palpitations. Respiratory: No cough. shortness of breath. Gastrointestinal: No abdominal pain, no vomiting. Genitourinary: No hematuria. Musculoskeletal: No back pain. Skin: No rashes. Neurological: No headache. (Nalini Rinaldi) - Physical Exam Exam: General Appearance: Alert, no distress. HEENT: Pupils equal and round no pallor or injection. Mucous membranes moist. Respiratory: There are no retractions, lungs decreased at the bases no wheezing noted. Speaking in full sentences Cardiovascular: Regular rate and rhythm. Gastrointestinal: Abdomen is soft and nontender Neurological: No focal deficits. Patient answering questions appropriately Skin: Warm and dry, no rashes. Musculoskeletal: Neck is supple nontender. Extremities: symmetrical, full range of motion. Psychiatric: Patient is oriented X 3, patient acting appropriately (Nalini Rinaldi) Constitutional: Initial Vital Signs O2 Sat (%) 95 11/01/16 09:00 O2 Delivery Mode Nasal Cannula O2 (L/minute) 2 Allergies/Adverse Reactions: No Known Allergies Allergy (Verified 10/24/16 13:35) Home Medications: Medication Instructions Recorded Ipratropium/Albuterol [Duoneb (*)] 3 ml IH DAILY 08/31/15 Medical Decision Making <Davin Reynaga - Last Filed: 11/01/16 10:22> <Nalini Rinaldi - Last Filed: 11/01/16 10:41> - Diagnostics Imaging Results: Imaging Impressions Chest X-Ray 11/01/16 09:05 Impression: No pneumonia. Might the patient symptoms be related to chronic reflux? Would an esophagram be of any utility? ED Course/Re-evaluation: Discussed ED plan of care: Chest x-ray, reviewed previous records from 10/24 and reviewed notes from his bronchoscopy on 10/25 1030: Discussed chest x-ray results, reviewed any plan for patient for outpatient. He will follow up with Dr. Longo or Dr. Greenwood with pulmonology on Thursday, also recommended maybe a sleep study to evaluate if increased oxygen as needed at night. No other recommendation would be to change from pill form medication to liquid form. Patient agree with this plan, discharge home---> stable. 94% oxygen saturation on 2 L, this is normal for patient at home ( Nalini Rinaldi) Differential Diagnosis: Other differential diagnosis considered but not limited to pneumonia, pleural effusion, pneumothorax, and foreign body (aNlini Rinaldi) Other Provider: I evaluated this patient in conjunction with THAO Rinaldi. He has a history of inflammatory lung disease with chronic shortness of breath and had a recent bronchoscopy by Dr. Dejesus related to this. I have cared for this patient in the past at my private clinic and am aware of some of his respiratory disease history. He presents today with worsening shortness of breath after forcefully coughing out a pill last night. He was able to sleep through the night without issue, but upon waking this morning felt like he could not catch his breath. He use his nebulizer with some improvement. He denies any pain. A chest x-ray today showed no evidence of foreign body or infiltrate. He is maintaining normal O2 sats on his standard O2 use while here and is not visibly dyspneic. He is able to speak in full, complete sentences without issue. No evidence for acute hypoxemia. I recommended using his concussive vest twice daily and discontinuing his Colace to see if his baseline shortness of breath improves. He is followed closely by Dr. Dejesus, central aisle cashier, and has follow up scheduled with his clinic. (Davin Reynaga) Departure <Davin Reynaga - Last Filed: 11/01/16 10:22> <Nalini Rinaldi - Last Filed: 11/01/16 10:41> - Departure Disposition: Home, Routine, Self-Care Clinical Impression: Shortness of breath Condition: Good Instructions: Dyspnea (ED) Additional Instructions: 1. Follow up with Dr. Longo or Dr. Dejesus on Thursday 2. We have also discussed possible sleep study to evaluate if you need increase her oxygen throughout the night 3. Due to the problems you have with your esophagus, I would also recommend crushing your pills or possible going to a liquid form of medication 4. If at any point time you feel symptoms have worsened increasing difficulty breathing Referrals: Patient,NotPresent [Primary Care Provider] - As per Instructions Davin Dejesus MD [Medical Doctor] - As per Instructions Hussein Longo MD [Medical Doctor] - As per Instructions Report Scribed for: Davin Reynaga Report Scribed by: Zo Mckenna Date of Report: 11/01/16 Time of Report: 10:23 <Davin Reynaga - Last Filed: 11/01/16 10:22>
[2016-11-01 10:40] VITALS: BP 130/71; PULSE 64; RESP 20; TEMP 97.5; O2SAT 94
== END 2016-11-01 10:40 | disposition home or self-care (01) ==
DX: R06.02 Shortness of breath (principal); Z87.891 Personal history of nicotine dependence

== ENCOUNTER 2017-02-06 01:58 | Emergency (ER) | payer OTHER ==
[2017-02-06 02:08] VITALS: TEMP 97.9
--- NOTE | 2017-02-06 03:27 | EDPHY ---
H & P Stated Complaint: sob-hx of bronchectasis HPI/ROS: HPI The patient presents with an episode of shortness of breath which awoke him from sleep tonight at approximately 1:00 a.m.. He felt as if he could not catch his breath and was breathing rapidly. He took a dose of Ativan with improvement in his symptoms, however not complete resolution. Thus, he came into the emergency room. Now he is feeling much better. He does have a history of bronchiectasis, uses 3-4 L of nasal cannula oxygen via concentrator. He has been wearing that lately. He does report increased stress in his life after recent trip to [place]. As he had trouble with his computer today which was very frustrating to him. His , who is at the bedside, says that was she saw this coming. He has not had any chest pain, coughing, dizziness or diaphoresis. He had a similar episode of shortness of breath while in [place] and was diagnosed with an anxiety attack, he was given Ativan he feels this helped him significantly with his symptoms. REVIEW OF SYSTEMS Constitutional: No fever, no chills. Eyes: No discharge. ENT: No sore throat. Cardiovascular: No chest pain, no palpitations. Respiratory: No cough, no shortness of breath. Gastrointestinal: No abdominal pain, no vomiting. Genitourinary: No hematuria. Musculoskeletal: No back pain. Skin: No rashes. Neurological: No headache. PMHx: Bronchiectasis Soc Hx: Lives at home with his PHYSICAL General Appearance: Alert, no distress Eyes: Pupils equal and round no pallor or injection ENT, Mouth: Mucous membranes moist Respiratory: There are no retractions, lungs are clear to auscultation Cardiovascular: Regular rate and rhythm Gastrointestinal: Abdomen is soft and non-tender, no masses, bowel sounds normal Neurological: A&O, moves all extremities Skin: Warm and dry, no rashes Musculoskeletal: Neck is supple non tender Extremities: symmetrical, full range of motion Psychiatric: Patient is oriented X 3, there is no agitation Source: Patient, Old records - Personal History Current Tetanus Diphtheria and Acellular Pertussis (TDAP): Unsure Tetanus Vaccine Date: UNSURE - Medical/Surgical History Hx Asthma: No Hx Chronic Respiratory Disease: Yes Hx Diabetes: No Hx Cardiac Disease: No Hx Renal Disease: No Hx Cirrhosis: No Hx Alcoholism: No Hx HIV/AIDS: No Hx Splenectomy or Spleen Trauma: No Other PMH: Chronic respiratory disease, appendectomy; constipation; green light procedure for enlarged prostate on 06/05/15. - Social History Smoking Status: Former smoker Constitutional: Initial Vital Signs Temperature (C) 36.6 C 02/06/17 02:05 Heart Rate 76 02/06/17 02:05 Respiratory Rate 40 H 02/06/17 02:05 Blood Pressure 134/77 H 02/06/17 02:05 O2 Sat (%) 92 02/06/17 02:05 O2 Delivery Mode Nasal Cannula O2 (L/minute) 4 Allergies/Adverse Reactions: No Known Allergies Allergy (Verified 02/06/17 02:04) Home Medications: Medication Instructions Recorded Ipratropium/Albuterol [Duoneb (*)] 3 ml IH DAILY 08/31/15 Albuterol 02/06/17 Medical Decision Making Differential Diagnosis: This is an 81-year-old male with history of bronchiectasis on home O2 who presents with an episode of shortness of breath, now improved. This shortness of breath occurred at night about 2 hours ago and has improved after receiving Ativan at home. His on exam, he initially was tachypneic with normal sats, now his respiratory rate has improved and is normal. Lungs sound clear bilaterally and the remainder of his exam is unremarkable. Differential diagnosis includes anxiety attack, pneumonia, pneumothorax, pulmonary embolism, worsening bronchiectasis. In the emergency department, I have offered the patient chest x-ray, however he declines, he is concerned because he has had so many of these and they are usually unremarkable. I have offered him a nebulizer, however he declines this as well. The PE is a consideration, however the patient has no hypoxia, tachycardia, fever, leg swelling or chest pain, thus I do not feel we need to evaluate for this currently. I had a long discussion with the patient and his at the bedside about anxiety and how it can cause shortness of breath. We discussed coping mechanisms including deep breathing exercises to control his breathing when he is feeling panicked. I explained that he can use Ativan, however she would only uses occasionally and not routinely. I have encouraged him to follow up with his doctor. Departure - Departure Disposition: Home, Routine, Self-Care Clinical Impression: Shortness of breath, Anxiety Bronchiectasis Qualifiers: Bronchiectasis type: uncomplicated Qualified Code(s): J47.9 - Bronchiectasis, uncomplicated Condition: Good Instructions: Anxiety (ED) Additional Instructions: If you feel like you cannot breathe at night and your having an anxiety attack you should get up and sit upright either in your better on a chair. You should focus on taking slow deep breaths for about 5 minutes. During this time, you can increase your oxygen to 4 L. If you're still feeling short of breath after this continue to do the deep breathing exercises though placed a nasal cannula near your mouth. If you continue to feel short of breath after this, you can take Ativan 1 mg by mouth. Please follow-up with your regular doctor if you're feeling anxious frequently and requiring Ativan more than once a week. Referrals: Ridge Aldridge MD [Primary Care Provider] - As per Instructions
[2017-02-06 03:42] VITALS: BP 123/68; PULSE 70; RESP 16; O2SAT 98
== END 2017-02-06 03:42 | disposition home or self-care (01) ==
DX: J47.9 Bronchiectasis, uncomplicated (principal); F41.9 Anxiety disorder, unspecified; Z87.891 Personal history of nicotine dependence

== ENCOUNTER 2017-04-29 16:23 | Emergency (ER) | payer OTHER ==
[2017-04-29 16:35] VITALS: TEMP 97.9
[2017-04-29] MEDS ORDERED: LORazepam 2 MG/ML INJ IVP ONE (17:12)
[2017-04-29] MEDS ORDERED: NS 1,000 ML IV ONE (17:12)
[2017-04-29] MEDS ORDERED: LIDOCAINE 2% VISCOUS 15 ML UDCUP PO ONE (17:13)
[2017-04-29] MEDS ORDERED: MAG HYDROX/AL HYDROX/SIMETH 30 ML UDCUP PO ONE (17:13)
--- NOTE | 2017-04-29 17:20 | EDPHY ---
H & P Stated Complaint: cough. difficulty swallowing Time Seen by Provider: 04/29/17 17:17 HPI/ROS: HPI: This is a 81-year-old male presents with Chief Complaint: Difficulty swallowing Location: Esophagus Quality: Difficulty swallowing Duration: 1 day Signs and Symptoms: no fever, no nausea, no vomiting, no hematemesis, no blood in stool, no abdominal bloating, no indigestion, no chest pain, no shortness of breath, + dry cough Timing: Gradual onset, constant Severity: Mild Context: Patient has a history of chronic respiratory disease, bronchiectasis on home supplemental oxygen 2-3 L continuous per nasal cannula, presents with complaints of increased thickness of phlegm and inability to cough it up x1 day. He believes that the phlegm has lodged in his esophagus and has made it difficult to swallow. He admits that he still able to eat and drink and is actually asking for something to drink during my interview. Denies fevers, palpitations, chest pain, shortness of breath beyond his baseline, lower extremity edema, wheezing. Patient complains of some voice hoarseness increased from his baseline. Modifying Factors: None Comment: ROS: see HPI Constitutional: No fever, no chills, no weight loss Eyes: No blurred vision Respiratory: No shortness of breath, no cough Cardiovascular: No chest pain, no palpitations Gastrointestinal: No nausea, no vomiting, no diarrhea, no hematemesis, no blood in stool Genitourinary: No dysuria, no blood in urine Extremities: No myalgias, no edema Neurologic: No weakness, no numbness Skin: No rashes, no petechiae Hematologic: No bruising, no bleeding MEDICAL/SURGICAL/SOCIAL HISTORY: Medical history: Chronic respiratory disease, appendectomy; constipation; green light procedure for enlarged prostate on 06/05/15. Surgical history: Denies Social history: . CONSTITUTIONAL: Elderly white male who appears chronically ill, awake and alert , no obvious distress HEENT: Atraumatic and normocephalic, PERRL, EOMI. Tympanic membranes clear. Oropharynx clear, no exudate and moist pink mucosa. Airway patent. No lymphadenopathy. No meningismus. Cardiovascular: Normal S1/S2, regular rate, regular rhythm, without murmur rub or gallop. PULMONARY/CHEST: Symmetrical and nontender. Clear to auscultation bilaterally. Good air movement. No accessory muscle usage. ABDOMEN: Soft, nondistended, nontender, no rebound, no guarding, no peritoneal signs, no masses or organomegaly. No CVAT. EXTREMITIES: 2/2 pulses, strength 5/5, no deformities, no clubbing, no cyanosis or edema. NEUROLOGICAL: no focal neuro deficits. GCS 15. Voice is somewhat hoarse. SKIN: Warm and dry, no erythema. no rash. Good capillary refill. Source: Patient, Family () Exam Limitations: No limitations - Personal History Current Tetanus/Diphtheria Vaccine: Unsure Current Tetanus Diphtheria and Acellular Pertussis (TDAP): Unsure Tetanus Vaccine Date: UNSURE - Medical/Surgical History Hx Asthma: No Hx Chronic Respiratory Disease: Yes Hx Diabetes: No Hx Cardiac Disease: No Hx Renal Disease: No Hx Cirrhosis: No Hx Alcoholism: No Hx HIV/AIDS: No Hx Splenectomy or Spleen Trauma: No Other PMH: Chronic respiratory disease, appendectomy; constipation; green light procedure for enlarged prostate on 06/05/15. - Social History Smoking Status: Former smoker Constitutional: Initial Vital Signs Temperature (C) 36.6 C 04/29/17 16:32 Heart Rate 75 04/29/17 16:32 Respiratory Rate 24 H 04/29/17 16:32 Blood Pressure 144/73 H 04/29/17 16:32 O2 Sat (%) 89 L 04/29/17 16:32 O2 Delivery Mode Nasal Cannula O2 (L/minute) 3 Allergies/Adverse Reactions: No Known Allergies Allergy (Verified 04/29/17 16:31) Home Medications: Medication Instructions Recorded Breo Ellipta 100-25 Mcg INH 04/29/17 predniSONE [predniSONE TAPER] 10 mg PO DAILY 6 Days ea 04/29/17 Medical Decision Making - Diagnostics Imaging Results: Imaging Impressions Chest X-Ray 04/29/17 17:21 Impression: 1. Chronic interstitial lung disease. 2. If it is clinically important to evaluate for underlying pneumonia or potentially progressive ANGELA infection, then consider noncontrast chest CT for further evaluation. Note that on prior CT, the patient has a history of ANGELA, bronchiectasis and mucous plugging. Soft Tissue Neck X-Ray 04/29/17 17:21 Impression: Cervical soft tissues negative for acute abnormality. ED Course/Re-evaluation: IV and oral medications, chest x-ray and neck soft tissue x-ray ordered Patient is talking clearly and no signs of respiratory distress/airway compromise/hypoxia from baseline Given 1 L normal saline, IV Ativan, and GI cocktail minus the Levsin with moderate relief of symptoms Over 30 min spent with discussion with and patient regarding chronic respiratory disease, bronchiectasis, course of disease Patient and were very reluctant to be prescribed any medication Afebrile, no systemic signs, no indication for antibiotics Patient refuses Mucinex as he reports that does not work. He politely declines Tessalon Perles for cough suppression. He is agreeable to a short course of steroid taper. He has an appointment with ENT on Thursday and he is to follow up with Dr. Reynaga in the next 2-3 days. This patient was seen under the supervision of my primary supervising physician. I evaluated care for this patient independently. Discussed this patient with Dr. Lee who did not see the patient. Differential Diagnosis: Differential diagnosis includes but is not limited to pharyngitis, bronchitis, foreign body, thickened mucus, pneumonia. - Data Points Medications Given: Discontinued Medications Al Hydroxide/Mg Hydroxide (Maalox Susp) 30 ml PO ONCE ONE Stop: 04/29/17 17:14 Last Admin: 04/29/17 17:51 Dose: 30 ml Sodium Chloride (Ns) 1,000 mls @ 0 mls/hr IV EDNOW ONE; Wide Open PRN Reason: Protocol Stop: 04/29/17 17:13 Last Admin: 04/29/17 17:49 Dose: 1,000 mls Lidocaine (Lidocaine 2% Viscous) 15 ml PO ONCE ONE Stop: 04/29/17 17:14 Last Admin: 04/29/17 17:51 Dose: 15 ml Lorazepam (Ativan Injection) 1 mg IVP EDNOW ONE Stop: 04/29/17 17:13 Last Admin: 04/29/17 17:49 Dose: 1 mg Departure - Departure Disposition: Home, Routine, Self-Care Clinical Impression: Cough Bronchiectasis Qualifiers: Bronchiectasis type: uncomplicated Qualified Code(s): J47.9 - Bronchiectasis, uncomplicated Condition: Good Instructions: Chronic Cough (ED), Guaifenesin (By mouth), Antitussives (By mouth), Antitussive/Decongestant/Expectorant (By mouth) Referrals: Davin Reynaga MD [Medical Doctor] - 2-3 days, call for appt. Prescriptions: predniSONE [predniSONE TAPER] 10 mg PO DAILY 6 Days ea
[2017-04-29 18:29] VITALS: RESP 18
[2017-04-29] MEDS ORDERED: predniSONE 20 MG TAB PO ONE (18:58)
[2017-04-29 19:12] VITALS: BP 140/73; PULSE 74; O2SAT 99
== END 2017-04-29 19:25 | disposition home or self-care (01) ==
DX: J47.9 Bronchiectasis, uncomplicated (principal); R05 Cough; E86.9 Volume depletion, unspecified; Z87.891 Personal history of nicotine dependence
CPT/HCPCS: 70360; 71020; 96361; 96374; 99284; J2060

== ENCOUNTER 2017-05-02 12:14 | Emergency (ER) | payer OTHER ==
[2017-05-02 12:50] VITALS: RESP 18; O2SAT 94
--- NOTE | 2017-05-02 12:57 | EDPHY ---
H & P Stated Complaint: back pain causing fall to floor Time Seen by Provider: 05/02/17 12:56 HPI/ROS: CHIEF COMPLAINT: Back pain, syncope, chronic cough HISTORY OF PRESENT ILLNESS: The patient presents to the ED with complaints of back pain, syncope and a acute exacerbation of a chronic cough from bronchiectasis. The patient has been taking a number of medications for a progressive productive cough including Mucinex, Tessalon and started antibiotics 3 days ago. Today the patient developed acute pain in his lower lumbar spine which caused the patient to experience a presyncope episode. The patient fell to his knees and sustained abrasions. REVIEW OF SYSTEMS: A comprehensive 10 point review of systems is otherwise negative aside from elements mentioned in the history of present illness. Source: Patient Exam Limitations: No limitations - Personal History Current Tetanus/Diphtheria Vaccine: Unsure Current Tetanus Diphtheria and Acellular Pertussis (TDAP): Unsure Tetanus Vaccine Date: UNSURE - Medical/Surgical History Hx Asthma: No Hx Chronic Respiratory Disease: Yes Hx Diabetes: No Hx Cardiac Disease: No Hx Renal Disease: No Hx Cirrhosis: No Hx Alcoholism: No Hx HIV/AIDS: No Hx Splenectomy or Spleen Trauma: No Other PMH: Chronic respiratory disease, appendectomy; constipation; green light procedure for enlarged prostate on 06/05/15. - Social History Smoking Status: Former smoker - Physical Exam Exam: General Appearance: Alert, no distress Head: Atraumatic Eyes: Pupils equal, round, reactive ENT, Mouth: No hemotympanum, no oral trauma Neck: Nontender, trachea midline Respiratory: Rhonchorous breath sounds Cardiovascular: Regular rate and rhythm Abdomen: Abdomen is soft and nontender, pelvis stable Skin: No lacerations, No abrasion Back: Tenderness to palpation lower lumbar spine Extremities: Nontender, full range of motion Neurological: A&Ox3, normal motor function, normal sensory exam Constitutional: Initial Vital Signs Temperature (C) 36.4 C 05/02/17 12:47 Heart Rate 67 05/02/17 12:47 Respiratory Rate 18 05/02/17 12:47 Blood Pressure 146/88 H 05/02/17 12:47 O2 Sat (%) 94 05/02/17 12:47 O2 Delivery Mode Nasal Cannula O2 (L/minute) 4 Allergies/Adverse Reactions: No Known Allergies Allergy (Verified 04/29/17 16:31) Home Medications: Medication Instructions Recorded Breo Ellipta 100-25 Mcg INH 04/29/17 predniSONE [predniSONE TAPER] 10 mg PO DAILY 6 Days ea 04/29/17 Chlorpheniramine Tannate 05/02/17 Lidocaine 5% [Lidoderm 5% Patch 1 ea TD DAILY #30 patch 05/02/17 (*)] Mucinex 05/02/17 Medical Decision Making - Diagnostics EKG Interpretation: EKG: Complete interpretation has been separately recorded in the [facility] archive. Summary impression: Sinus rhythm, rate 67 Imaging Results: Imaging Impressions Chest X-Ray 05/02/17 13:15 Impression: Possible developing lower lobe posterior segment pneumonia, side indeterminate. Lumbar Spine X-Ray 05/02/17 13:15 Impression: L1 and L4 compression fractures of unknown age. If it is clinically important to understand their age, then recommend MRI to assess for bone marrow edema. If this patient is a kyphoplasty candidate, then consultation with interventional radiology should be considered (Dr. Ge [phone], Dr. Aguilar [phone] Antonio [phone]). ED Course/Re-evaluation: The patient presents to the ED after he experienced a fall at home and resulting low back pain. The patient is noted to have mild compression fractures in his lumbar spine corresponding to his area of pain and tenderness. The patient is interested in attempting medical management at home. He will be given a prescription for Lidoderm patch. The patient does have chronic lung disease noted on his chest x-ray. At this point time he is currently on antibiotics. I will not change any management of his respiratory symptoms. The patient will be advised to follow up with his primary care provider this week. He is given a prescription for lidocaine patches. He has no evidence of a critical anemia or metabolic abnormality. There is no evidence of an arrhythmia. Differential Diagnosis: Differential diagnosis considered includes arrhythmia, lumbar compression fracture, anemia, metabolic abnormality, dehydration - Data Points Laboratory Results: Laboratory Results 05/02/17 12:00 05/02/17 12:00 05/02/17 05/02/17 12:00 12:00 WBC 14.81 10^3/uL H 10^3/uL (3.80-9.50) RBC 4.53 10^6/uL 10^6/uL (4.40-6.38) Hgb 14.7 g/dL g/dL (13.7-17.5) Hct 42.5 % % (40.0-51.0) MCV 93.8 fL fL (81.5-99.8) MCH 32.5 pg pg (27.9-34.1) MCHC 34.6 g/dL g/dL (32.4-36.7) RDW 15.0 % % (11.5-15.2) Plt Count 338 10^3/uL 10^3/uL (150-400) MPV 10.4 fL fL (8.7-11.7) Neut % (Auto) Not Reported Lymph % (Auto) Not Reported [place] % (Auto) Not Reported Eos % (Auto) Not Reported Baso % (Auto) Not Reported Nucleat RBC Rel Count 0.1 % % (0.0-0.2) Absolute Neuts (auto) Not Reported Absolute Lymphs (auto) Not Reported Absolute Monos (auto) Not Reported Absolute Eos (auto) Not Reported Absolute Basos (auto) Not Reported Absolute Nucleated RBC 0.02 10^3/uL H 10^3/uL (0-0.01) Immature Gran % Not Reported Seg Neutrophils % 68 % % Band Neutrophils % 5 % % Lymphocytes % 16 % % Monocytes % 10 % % Eosinophils % 1 % % Immature Gran # Not Reported Absolute Seg Neuts 10.07 10^/uL H 10^/uL (1.70-6.50) Absolute Band Neuts 0.74 10^3/uL H 10^3/uL (0.00-0.70) Absolute Lymphocytes 2.37 10^3/uL 10^3/uL (1.00-3.00) Absolute Monocytes 1.48 10^3/uL H 10^3/uL (0.30-0.80) Absolute Eosinophils 0.15 10^3/uL 10^3/uL (0.03-0.40) RBC/WBC/PLT Morphology NORMAL (NORMAL) Platelet Estimate ADEQUATE (ADEQ) Sodium 134 mEq/L mEq/L (134-144) Potassium 4.2 mEq/L mEq/L (3.5-5.2) Chloride 91 mEq/L L mEq/L (97-110) Carbon Dioxide 29 mEq/l mEq/l (22-31) Anion Gap 14 mEq/L mEq/L (8-16) BUN 11 mg/dL mg/dL (7-23) Creatinine 0.8 mg/dL mg/dL (0.7-1.3) Estimated GFR > 60 Glucose 82 mg/dL mg/dL (70-100) Calcium 9.6 mg/dL mg/dL (8.5-10.4) Medications Given: Discontinued Medications Sodium Chloride (Ns) 1,000 mls @ 0 mls/hr IV EDNOW ONE; Wide Open PRN Reason: Protocol Stop: 05/02/17 14:02 Last Admin: 05/02/17 14:30 Dose: 1,000 mls Lidocaine (Lidoderm 5%) 1 ea TD EDNOW ONE Stop: 05/02/17 14:04 Last Admin: 05/02/17 15:03 Dose: 1 ea Departure - Departure Disposition: Home, Routine, Self-Care Clinical Impression: Bronchiectasis, Lumbar compression fracture Condition: Good Instructions: Vertebral Compression Fracture (ED) Additional Instructions: 1. Continue your regular medications as prescribed by your physicians. 2. Lidocaine patches as directed for back pain. 3. Return to the ED for uncontrolled pain, increasing weakness or other concerns. 4. Please follow up with Gastroenterology for any ongoing symptoms of difficulty swallowing. Referrals: Davin Reynaga MD [Medical Doctor] - As per Instructions Prescriptions: Lidocaine 5% [Lidoderm 5% Patch (*)] 1 ea TD DAILY #30 patch
--- NOTE | 2017-05-02 13:24 | CPEKG ---
Heart Rate: 67 RR Interval: 896 P-R Interval: 180 QRSD Interval: 88 QT Interval: 404 QTC Interval: 427 P [place]: 75 QRS [place]: 57 T Wave [place]: 38 EKG Severity - NORMAL ECG - EKG Impression: SINUS RHYTHM Electronically Signed By: Hussein Doty 02-May-2017 13:58:30
[2017-05-02 13:27] LABS: PLATELET COUNT 338 10^3/uL (150-400)
[2017-05-02] MEDS ORDERED: NS 1,000 ML IV ONE (14:01)
[2017-05-02] MEDS ORDERED: LIDOCAINE 5% 1 EA PATCH TD ONE (14:03)
[2017-05-02 16:29] VITALS: BP 123/77; PULSE 71; TEMP 97.9
[2017-05-02] MEDS ORDERED: PATCH REMOVAL 1 EA PATCH TD SCH (21:00)
== END 2017-05-02 16:29 | disposition home or self-care (01) ==
LOC: EDUNIT#
DX: S32.010A Wedge compression fracture of first lumbar vertebra, initial encounter for closed fracture (principal); S32.040A Wedge compression fracture of fourth lumbar vertebra, initial encounter for closed fracture; J47.9 Bronchiectasis, uncomplicated; E86.9 Volume depletion, unspecified; Z87.891 Personal history of nicotine dependence; W19.XXXA Unspecified fall, initial encounter

== ENCOUNTER 2017-05-12 18:28 | Inpatient (IN) | payer OTHER ==
--- NOTE | 2017-05-12 18:34 | EDPHY ---
H & P Constitutional: Initial Vital Signs Temperature (C) 36.4 C 05/12/17 18:32 Heart Rate 66 05/12/17 18:32 Respiratory Rate 18 05/12/17 18:32 Blood Pressure 161/72 H 05/12/17 18:32 O2 Sat (%) 92 05/12/17 18:32 O2 Delivery Mode Room Air Allergies/Adverse Reactions: No Known Allergies Allergy (Verified 04/29/17 16:31) Home Medications: Medication Instructions Recorded Fluticasone/Vilanterol [Breo 1 each IH DAILY 05/12/17 Ellipta 200-25 Mcg INH] Herbals/Supplements -Info Only 1 ea PO DAILY 05/12/17 Lidocaine 5% [Lidoderm 5% Patch 1 ea TD DAILY 05/12/17 (*)] Linaclotide [Linzess] 145 mcg PO DAILY 05/12/17 guaiFENesin [Mucinex 600 MG (*)] 600 mg PO BID 05/12/17 predniSONE [Prednisone] 10 mg PO DAILY 05/12/17 Medical Decision Making - Diagnostics Imaging: Discussed imaging studies w/ plastic welding machine operator Radiologist, I viewed and interpreted images myself ED Course/Re-evaluation: CHIEF COMPLAINT: 81-year-old with worsening back pain HISTORY OF PRESENT ILLNESS: 81-year-old gentleman with significant past medical history for ANGELA and interstitial lung disease. He is O2 dependent. About a week and half ago he developed an upper respiratory infection. His primary care physician started him on some antibiotics. He continued to have a progressive cough but things tend to settle down regarding his cough and chest congestion however he developed a severe sore throat. His primary care physician gave him opiates for the sore throat and he unfortunately had a syncopal episode. He presented here both on April 29 for his upper respiratory infection and then secondarily on May 02 after he passed out from his opiates the erratically. He did suffer an L1 and L4 compression fracture which was diagnosed on May 02 but they fractures did not appear very severe on plain film. I have been seen this patient as an outpatient and unfortunately his pain has been worsening. I examined him yesterday at his house and he has no motor deficits and he is able to get up from the sitting position he is able to get in and out of bed and ambulate appropriately however his pain is worsening. I sent him for an outpatient CT without contrast today to further define his injuries and unfortunately the L1 compression fracture has worsened significantly since the plain films. He also has some retropulsion of fragments. He also has an L4 endplate compression fracture which is causing much less of a problem. I reviewed the CT scan with Dr. Luis Antonio Pimentel from Neurosurgery. He thinks due to the retropulsed fragments and a narrow canal this patient requires an MRI and admission to the hospital for his pain control and to determine whether not there is any additional help that we can provide for the compression fracture either via kyphoplasty or potentially surgical. I have just asked the patient to return by ambulance due to the severe nature of his outpatient CT and we will perform an MRI. REVIEW OF SYSTEMS: A 10 point review of systems was performed and is negative with the exception of the elements mentioned in the history of present illness. PHYSICAL EXAM: HR, BP, O2 Sat, RR. Temp noted General Appearance: Alert, well hydrated, appropriate, and non-toxic appearing. Head: Atraumatic without scalp tenderness or obvious injury Eyes: Pupils equal, round, reactive to light and accommodation, EOMI, no trauma , no injection. Ears: Clear bilaterally, no perforation, normal landmarks Nose: Atraumatic, no rhinorrhea, clear. Throat: There is no erythema or exudates, no lesions, normal tonsils, mucus membranes moist. Neck: Supple, nontender, no lymphadenopathy. Respiratory: No retractions, no distress, no wheezes, and no accessory muscle use. Lungs are clear to auscultation bilaterally. Cardiovascular: Regular rate and rhythm, no murmurs, rubs, or gallops. Good capillary refill all extremities. Gastrointestinal: Abdomen is soft, nontender, non-distended, no masses, no rebound, no guarding, no peritoneal signs. Musculoskeletal: Normal active ROM of all extremities, atraumatic. Neurological: Alert, appropriate, and interactive. Nonfocal neuro. Skin: No rashes, good turgor, no nodules on palpation. 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 He does have a daughter in town also he does not drink, smoke or use drugs. DIAGNOSTICS/PROCEDURES/CRITICAL CARE TIME: Study: CT of the lumbar spine without contrast Indication: Known compression fractures worsening pain Results: CT scan of the lumbar spine was obtained. The results of the study are severe compression of L1 which is much worse than the plain films from the end of April. Moderate compression of L4. Retropulsed fragments with L1.. The study was read by the radiologist, Dr. Vernon Orta. I viewed the images myself on the PACS system. Study: MRI of the: Lumbar spine without contrast Indication: Trauma evaluate L1 compression fracture Results: MRI scan of the lumbar spine was obtained. The results of the study reveal the patient is a candidate for a kyphoplasty. The study was read by the radiologist, Dr. Joshua Aguilar. I viewed the images myself on the PACS system. DIFFERENTIAL DIAGNOSIS: The differential diagnosis for the patient's back pain included but was not limited to musculo-skeletal pain, epidural abscess, herniated disk, spinal fracture, and intra-abdominal causes including urinary system. MEDICAL DECISION MAKING: This patient has no neurologic deficits however he has a severe L1 compression fracture with retropulsed fragments. This patient also has a narrow canal. We will get an MRI and admitted the hospitalist's with Dr. Pimentel as neurosurgical consult. Patient and his family are comfortable with plan for MRI and admission. This patient may be amenable to a kyphoplasty through interventional Radiology verses a surgical procedure. He also needs pain control. He also needs a lumbar corset brace. 0.5mg IV Dilaudid administered. 1845: Consulted with Dr. Mcclellan, hospitalist, regarding this patient. She accepts admission of this patient. 1903: Consulted with [employer], they will bring a lumbar corset for fitting. 2042: Reassessed patient after his MRI; he will be fitted for the lumbar-sacral brace. 2124: Reassessed patient after he was fitted with a lumbar-sacral brace. MRI results still pending. 2139: Spoke with Dr. Aguilar, radiologist, he reports the patient is a good candidate for the kyphoplasty. Dr. Aguilar will evaluate the patient tomorrow prior to the kyphoplasty. 2141: Reassessed patient and discussed candidacy for kyphoplasty. - Data Points Medications Given: Hydromorphone HCl (Dilaudid) 0.2 mg IVP Q6H PRN PRN Reason: Pain, Severe Unable to Take PO Stop: 05/22/17 19:07 Last Admin: 05/12/17 19:50 Dose: 0.2 mg Discontinued Medications Hydromorphone HCl (Dilaudid) 0.5 mg IVP EDNOW ONE Stop: 05/12/17 18:52 Last Admin: 05/12/17 19:05 Dose: 0.2 mg Departure - Departure Disposition: [facility] Inpatient Acute Clinical Impression: Fracture, lumbar vertebra, compression Qualifiers: Encounter type: initial encounter Lumbar vertebra fracture level: L4 Fracture type: closed Qualified Code(s): S32.040A - Wedge compression fracture of fourth lumbar vertebra, initial encounter for closed fracture Condition: Fair Report Scribed for: Davin Reynaga Report Scribed by: Angelika Galdamez Date of Report: 05/12/17 Time of Report: 18:34
[2017-05-12] MEDS ORDERED: ONDANSETRON DISINTEGRATING 4 MG TAB PO PRN (18:47)
[2017-05-12] MEDS ORDERED: ONDANSETRON 4 MG/2 ML VIAL IVP PRN (18:47)
[2017-05-12] MEDS ORDERED: ACETAMINOPHEN 325 MG TAB PO PRN (18:47)
[2017-05-12] MEDS ORDERED: HYDROmorphONE/DILAUDID 1 MG/ML INJ IVP ONE (18:51)
[2017-05-12 19:14] LABS: PLATELET COUNT 361 10^3/uL (150-400)
[2017-05-12 19:22] LABS: INR 1.06 (0.83-1.16)
[2017-05-12] MEDS ORDERED: morphINE 10 MG/0.5 ML UDSYR PO PRN (19:28)
[2017-05-12] MEDS: HYDROmorphONE/DILAUDID 1 MG/ML INJ IVP PRN (19:50)
--- NOTE | 2017-05-12 21:10 | GHP ---
[f rep st] HISTORY AND PHYSICAL DATE OF ADMISSION: 05/12/2017 CHIEF COMPLAINT: Lumbar back pain. HISTORY OF PRESENT ILLNESS: An 81-year-old male with history of ANGELA bronchiectasis, pulmonary embolism, presenting with severe back pain. About a week and a half ago, he developed an upper respiratory infection. His PCP started him on antibiotics. Symptoms improved regarding his cough and chest congestion. However, he developed a severe sore throat. He was prescribed an opiate for pain. Unfortunately, had a syncopal episode on 05/02/2017, with a fall. He suffered an L1 and L4 compression fracture, which was diagnosed on plain film here at [facility]. He is followed by Dr. Reynaga as an outpatient along with his PCP. It appears his pain has been worsening. Dr. Reynaga saw him at his house yesterday. Had no motor deficits and was able to get up from the sitting position. He was sent for an outpatient CT. CT showed a worsening of the L1 fracture with retropulsion resulting in moderate to severe central canal stenosis. Mild L4 compression fraction without central canal stenosis. Pain is sharp in nature in the lumbar region. Does not radiate. It is up to 8/ 10. His daughter and were also participating in the interview and stated he has been treated with CBD oil, Tylenol, T-Relief, homeopathic medication with minimal relief. He denies any bladder or bowel incontinence. No overt weakness. REVIEW OF SYSTEMS: I completed a 10-point review of systems. Negative except as noted in HPI. PAST MEDICAL HISTORY: Myobacterium avium intracellulare severe bronchiectasis, history of pulmonary embolism, chronic hypoxemic respiratory failure on 3 L . PAST SURGICAL HISTORY: Appendectomy, broken collarbone, laser prostate surgery. FAMILY HISTORY: Paternal grandmother with pancreatic cancer. Grandfather with colon cancer. SOCIAL HISTORY: Lives in [place] with his . Drinks a glass of wine daily. No tobacco. Was a former smoker. Using CBD oil for pain. Retired from [employer]. HOME MEDICATIONS: 1. Completed a course of antibiotics, unknown which ones. 2. Prednisone, completed. 3. Lidoderm patch. 5. Breo. 6. Ativan, unknown dose. ALLERGIES: No known drug allergies. PHYSICAL EXAMINATION: VITAL SIGNS: Temperature 36.4. Blood pressure 161/72. Heart rate 60s. Respirations 18. 92% on room air. GENERAL: Thin male, sitting up in bed, uncomfortable but no acute distress. HEENT: PERRLA. EOMI. Mildly dry mucous membranes. CV: Regular rate and rhythm. No murmurs, gallops, or rubs. LUNGS: Diminished throughout. Bronchial breath sounds. ABDOMEN: Soft, nontender, nondistended. MUSCULOSKELETAL: 5/5 upper and lower extremity strength. No bony tenderness over spine. Does have some paraspinal lumbar tenderness. NEURO: 2 through 12 intact. No focal deficits. PSYCH: Alert and oriented x3. Skin: poor skin tugor LABORATORY: WBC is 16, hemoglobin 14, hematocrit 39, platelets 361. Coags within normal. Sodium baseline is 130-135. Potassium 4.2, carbon dioxide 85, creatinine 0.7, glucose 94. Lumbar spine CT: L1 severe benign osteoporotic compression fracture with retropulsion resulting in moderate to severe central canal stenosis. Mild L4 compression fracture without compression. ASSESSMENT AND PLAN: 1. Progressive lumbar compression fractures. This has progressed since his initial presentation on the . Dr. Reynaga reviewed CT scan with Dr. Pimentel from Neurosurgery. He recommends MRI and pain control. Will determine if a kyphoplasty or surgical intervention is warranted. The patient is very sensitive to medications. I will schedule Tylenol, low-dose Dilaudid and oral morphine if needed. He will be placed on fall precautions. 2. Chronic hypoxemic respiratory failure, stable. 3. History of Mycobacterium avium intracellulare infection. Not on antibiotics. 4. Diet: Regular, n.p.o. after midnight. 5. Deep vein thrombosis prophylaxis: Medium risk. Sequential compression devices with possible surgical intervention. 6. Hypovolemic hyponatremia: dry on exam. Give gentle IVFs, urine lytes pending 7. Leukocytosis: likely stress-response. Completed course of abx recently for URI. Check UA. Disposition: warrants inpatient admission given acute lumbar fractures requiring further imaging, neurosurgery evaluation, Physical Therapy and Occupational Therapy. /[id number]/MODL MTDD
[2017-05-12] MEDS: ACETAMINOPHEN 500 MG TAB PO SCH (22:08)
[2017-05-12] MEDS ORDERED: LR 1,000 ML IV SCH (22:30)
[2017-05-13] MEDS: LIDOCAINE 5% 1 EA PATCH TD SCH ×2 (00:59→07:53)
[2017-05-13] MEDS: BACITRACIN OINTMENT 1 PACKET TP SCH ×3 (00:59→21:29)
[2017-05-13] MEDS: HYDROmorphONE/DILAUDID 1 MG/ML INJ IVP PRN ×2 (01:35→07:55)
[2017-05-13] MEDS: NON-FORMULARY NEW DRUG (Fluticasone/Vilanterol [Breo Ellipta 200-25 Mcg Inh] 1 EACH) IH SCH (07:41)
[2017-05-13] MEDS: ACETAMINOPHEN 500 MG TAB PO SCH ×3 (07:55→21:29)
[2017-05-13] MEDS ORDERED: Herbals/Supplements -Info Only PO SCH (09:00)
[2017-05-13] MEDS ORDERED: NS 1,000 ML IV SCH (09:15)
--- NOTE | 2017-05-13 10:08 | ASMTCASEMG ---
Living Arrangements What is your living Answers: With Spouse arrangement? Who do you live with? Type Of Residence What kind of residence do Answers: House you live in? Discharge Plan Comments Coordination Status Comments Notes: Pt is a 81 y/o man admitted for lumber back pain. He suffered an L1 and L4 compression fracture. Therapies have been ordered and awaiting recommendations. Needs are TBD at this time. CM to follow. Plan: TBD Date Signed: 05/13/2017 10:08 AM Electronically Signed By:JONATHAN Quintanilla
[2017-05-13] MEDS: LINACLOTIDE 145 MCG PO SCH (10:20)
[2017-05-13] MEDS: PATCH REMOVAL 1 EA PATCH TD SCH (10:21)
--- NOTE | 2017-05-13 10:21 | PDMN ---
Medical Necessity Medical necessity: Patient meets inpatient criteria per physician note and [facility] Musculoskeletal Disease GRG (L1 compression fracture w/retropulsion resulting in mod to severe central canal stenosis and mild L4 compression; anticipated LOS > 2 midnights for ongoing freq IV Dilaudid for pain control, further imagery , possible surgical intervention, PT/OT.)
[2017-05-13] MEDS ORDERED: DEXAMETHASONE 10 MG/ML VIAL IVP ONE (10:24)
[2017-05-13] MEDS ORDERED: ceFAZolin 2 GM/SWFI 2 GM/20 ML SYR IVP ONE (10:24)
--- NOTE | 2017-05-13 10:33 | HOSPPROG ---
Hospitalist Progress Note Assessment/Plan: #Acute lumbar back pain: due to lumbar compression fractures. Appreciate IR for kyphoplasty -Appreciate Dr. Pimentel's consulation -scheduled APAP, PRN morphine. -PT. May warrant SNF at discharge #Chronic hypoxic resp failure: chronic ANGELA, bronchiectasis. Stable. Cont home inhaler #Hypovolemic hyponatremia: mildly improved with IVFs. Will cont gentle hydration today, repeat BMP #Dysphagia: appears chronic, but difficult with pills. Speech to evaluate #Diet: regular #DVT ppx: SCDs #Disp: cont inpatient admission for kyphoplasty, pain control and PT # Subjective: pain 6/10 today, lesli with movement. Denies leg weakness Objective: Vital Signs Temp Pulse Resp BP Pulse Ox 36.6 C 61 22 H 147/78 H 94 05/13/17 08:00 05/13/17 08:00 05/13/17 08:00 05/13/17 08:00 05/13/17 08:00 Laboratory Results 05/13/17 04:48 05/13/17 04:48 05/12/17 05/13/17 05/14/17 05:59 05:59 05:59 Output Total 1625 250 Balance -1625 -250 PT 14.0 SEC (12.0-15.0) 05/12/17 18:55 INR 1.06 (0.83-1.16) 05/12/17 18:55 - Physical Exam Constitutional: no apparent distress, other (thin) Eyes: PERRL Ears, Nose, Mouth, Throat: dry mucous membranes Cardiovascular: regular rate and rhythym, no murmur, rub, or gallop Respiratory: no respiratory distress, rhonchi Gastrointestinal: normoactive bowel sounds, soft, non-tender abdomen Genitourinary: No delgado in urethra Skin: warm Musculoskeletal: full muscle strength, other (no pain with straight leg test) Neurologic: AAOx3 ICD10 Worksheet Patient Problems: Problems Problem Status Onset Fracture, lumbar vertebra, compression Acute Bronchiectasis Acute Bronchiectasis Acute Dyspnea Acute Hyponatremia Acute Hypoxia Acute Leukocytosis Acute Mycobacterium avium-intracellulare complex Acute Urinary tract infection Acute
--- NOTE | 2017-05-13 11:28 | ASMTCMCOM ---
CM Note CM Note Notes: CM spoke w/ Mary, emergency room gearcase assembler. Pt is being followed by Dr. Davin Bahena on an outpatient basis. Dr. Bahena reports that pt lives in a private home w/ his . Dr. Trevizo made a home visit the other day and had concerns regarding pts cognitive ability. CM communicated this w/ ELLEN Garcia and requested a SPL eval. [facility]. CM to follow. Date Signed: 05/13/2017 11:28 AM Electronically Signed By:JONATHAN Quintanilla
[2017-05-13] MEDS ORDERED: HYDROmorphONE/DILAUDID 1 MG/ML INJ IVP PRN (11:29)
[2017-05-13] MEDS ORDERED: MAGNESIUM HYDROXIDE 30 ML UDCUP PO PRN (13:40)
[2017-05-13] MEDS ORDERED: LACTULOSE 20 GM/30 ML UDCUP PO PRN (13:40)
[2017-05-13] MEDS ORDERED: BISACODYL 10 MG SUPP PR PRN (13:40)
[2017-05-13] MEDS ORDERED: HYDROmorphone HCL/NS/PF 0.4 MG/2 ML SYR IVP PRN (15:00)
[2017-05-13] MEDS ORDERED: ceFAZolin 2 GM/SWFI 20 ML SYR IVP ONE (15:22)
[2017-05-13] MEDS: SENNOSIDES/DOCUSATE SODIUM TAB PO SCH ×2 (15:28→21:29)
[2017-05-13] MEDS ORDERED: fentaNYL 100 MCG/2 ML INJ ONE (15:51)
[2017-05-13] MEDS ORDERED: MIDAZOLAM 2 MG/2 ML VIAL ONE (16:10)
[2017-05-13] MEDS ORDERED: MIDAZOLAM 2 MG/2 ML VIAL IVP ONE (16:16)
--- NOTE | 2017-05-13 16:16 | PDANEPAE ---
ANE History of Present Illness 81 year old male w/ ANGELA, bronchiectasis, O2 dependent and chronic back pain presents for kyphoplasty. ANE Past Medical History - Cardiovascular History Hx Hypertension: No Hx Arrhythmias: No Hx Chest Pain: No Hx Coronary Artery / Peripheral Vascular Disease: No Hx CHF / Valvular Disease: No Hx Palpitations: No - Pulmonary History Hx COPD: No Hx Asthma/Reactive Airway Disease: Yes Hx Recent Upper Respiratory Infection: Yes Hx Oxygen in Use at Home: Yes O2 in Use at Home (L/minute): 3 Hx Sleep Apnea: No Sleep Apnea Screening Result - Last Documented: Positive Pulmonary History Comment: Mycobacterium Avium intracellulare - Neurologic History Hx Cerebrovascular Accident: No Hx Seizures: No Hx Dementia: No - Endocrine History Hx Diabetes: No Hypothyroid: No Hyperthyroid: No Obesity: no - Renal History Hx Renal Disorders: No - Liver History Hx Hepatic Disorders: No - Neurological & Psychiatric Hx Hx Neurological and Psychiatric Disorders: No - Cancer History Hx Cancer: No - Congenital Disorder History Hx Congenital Disorders: No - Chronic Pain History Chronic Pain: No ANE Review of Systems Review of systems is: negative Review of Systems: - Exercise capacity Exercise capacity: >=4 METS ANE Patient History - Allergies Allergies/Adverse Reactions: No Known Allergies Allergy (Verified 04/29/17 16:31) - Home Medications Home medications: home medication list seen and reviewed Home Medications: Fluticasone/Vilanterol [Breo Ellipta 200-25 Mcg INH] 1 each IH DAILY 05/12/17 [ Last Taken Unknown] Herbals/Supplements -Info Only 1 ea PO DAILY 05/12/17 [Last Taken Unknown] Lidocaine 5% [Lidoderm 5% Patch (*)] 1 ea TD DAILY 05/12/17 [Last Taken 05/11/17 ] Linaclotide [Linzess] 145 mcg PO DAILY 05/12/17 [Last Taken 05/10/17] guaiFENesin [Mucinex 600 MG (*)] 600 mg PO BID 05/12/17 [Last Taken Unknown] predniSONE [Prednisone] 10 mg PO DAILY 05/12/17 [Last Taken 05/10/17] - NPO status NPO Status: no food or drink >8 hours - Anes Hx Anes Hx: no prior problems - Smoking Hx Smoking Status: Former smoker Marijuana use: No - Alcohol Use Alcohol Use: Rarely - Family Anes Hx Family Anes Hx: neg - N/A ANE Labs/Vital Signs - Labs Result Diagrams: 05/13/17 04:48 05/13/17 12:50 - Vital Signs Vital Signs: reviewed preoperatively; see RN documention for details Blood Pressure: 138/78 Heart Rate: 64 Respiratory Rate: 12 O2 Sat (%): 98 Height: 187.96 cm Weight: 65.771 kg ANE Physical Exam - Airway Neck exam: FROM Mallampati Score: Class 2 Mouth exam: normal dental/mouth exam - Pulmonary Pulmonary: no respiratory distress - Cardiovascular Cardiovascular: regular rate and rhythym - ASA Status ASA Status: IV ANE Anesthesia Plan Anesthesia Plan: GA with mask, MAC Total IV Anesthesia: Yes
[2017-05-13] MEDS ORDERED: PROPOFOL/EMULSION 500 MG/50 ML BOTTLE IV ONE (16:23)
[2017-05-13] MEDS ORDERED: BUPIVACAINE 0.5% 30 ML SDV ONE (16:55)
[2017-05-13] MEDS ORDERED: LIDOCAINE 1% 300 MG/30 ML SDV ONE (16:55)
[2017-05-13] MEDS ORDERED: NALOXONE HCL 0.4 MG/ML INJ IVP PRN ×2 (18:22→18:35)
[2017-05-13] MEDS ORDERED: ONDANSETRON 4 MG/2 ML VIAL IVP PRN (18:22)
[2017-05-13] MEDS ORDERED: LR 500 ML IV PRN (18:22)
[2017-05-13] MEDS ORDERED: fentaNYL 100 MCG/2 ML INJ IVP PRN (18:22)
--- NOTE | 2017-05-13 18:26 | PDRADPN ---
Radiology Procedure Note Date of Procedure: 05/13/17 Radiologist: Joshua Aguilar Anesthesiologist: Dr. Vamsi Low Anesthesia: IV Sedation (Deep sedation/analgesia with IV propofol.) Pre-op Diagnosis: Multilevel lumbar insufficiency fractures Post-op Diagnosis: Same Indication: Debilitating pain Procedure: Vertebral augmentation kyphoplasties at L1 and L4 Finding(s): Good distribution of cement at each level. Inf/Abcess present in the surg proc area at time of surgery?: No EBL: Minimal Complications: None.
[2017-05-13] MEDS ORDERED: ALBUTEROL 3 ML DEYVIAL IH PRN (18:35)
[2017-05-13] MEDS ORDERED: ALBUTEROL 3 ML DEYVIAL ONE (18:35)
[2017-05-13] MEDS: POLYETHYLENE GLYCOL 3350 17 GM PKT PO PRN (21:29)
--- NOTE | 2017-05-14 01:30 | GCON ---
[f rep st] CONSULTATION CONSULTATION HISTORY AND PHYSICAL DATE OF CONSULTATION: 05/13/2017 Patient is seen in the hospital, Room 359, on 05/13/2017 at 1400. CHIEF COMPLAINT: Multiple lumbar compression fractures from a fall. HISTORY OF PRESENT ILLNESS: The patient is an 81-year-old male with a history of ANGELA bronchiectasis, pulmonary embolism, who presented with severe back pain. Approximately a week and a half ago, he de veloped an upper respiratory infection. His PCP started him on antibiotics. His symptoms improved r egarding his cough and chest congestion; however, he developed a severe sore throat. He was prescrib ed an opiate for pain control. Unfortunately, he had a syncopal episode on 05/02/2017 with a fall at that time. He suffered minor L1 and L4 compression fractures, which were diagnosed on plain films a [facility]. He is being followed by Dr. Reynaga as an outpatient, along with his PCP . His pain had worsened Do night and developed worsening symptoms. He denied any complaints as far as motor weakness. No numbness or tingling to his upper or lower extremities. No weakness to his upper extremities and lower extremities. He had a CT scan, which showed worsening of an L1 frac ture and retropulsion resulting in moderate to severe central canal stenosis. He had a continued mil d L4 compression fracture without canal stenosis. He described the pain as sharp in nature. He does not have any radiation as mentioned above. He does not have any issues such as loss of bowel or jayne dder control or problems with his gait or balance other than pain related to his back. His daughter and his were present throughout the visit. He has been treating it with CBD oil, Tylenol, homeo pathic medications, and some pain medication, as well. REVIEW OF SYSTEMS: 10-point review of systems as noted negative except noted in HPI. PAST MEDICAL HISTORY: Significant for the followin. Mycobacterium avium-intracellulare severe bronchiectasis. 2. History of pulmonary embolism. 3. Chronic hypoxic failure and on 3 L 01/12. PAST SURGICAL HISTORY: 1. Appendectomy. 2. Broken collar bone. 3. Laser surgery for his prostate. MEDICATIONS: 1. Completed course of antibiotics, unknown which one. 2. Prednisone, which completed. 3. Lidoderm patches. 4. Breo. 5. Ativan. ALLERGIES: No known drug allergies. FAMILY HISTORY: Paternal grandmother with pancreatic cancer and a grandfather with colon cancer. SOCIAL HISTORY: Patient is . Lives in [place] with his . He drinks a glass of wine rosalinda y. He does not use any cigarettes; no smoking. He was a former smoker but years ago. He uses CBD o il for pain. 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 PHYSICAL EXAMINATION: GENERAL: This is an awake, alert, oriented male, in no acute distress. VITAL SIGNS: Most recent vital signs, blood pressure 131/68 with a MAP of 89, 66 heart rate, 22 respirato ry rate, 93% on 2 L nasal cannula, temperature 36.4. HEENT: Head is normocephalic. Pupils equal, r ound, and reactive to light. EOMIs intact. Full visual jimenez by confrontation. Ears are patent. Nose is patent. NECK: Soft and supple. No midline tenderness. Full range of motion in flexion, ex tension, lateral bending, and rotation. RESPIRATORY: Deferred. CARDIAC: Deferred. ABDOMEN: Soft, nontender. No peritoneal signs. : Deferred. RECTAL: Deferred. NEURO: Patient is awake, aler t, oriented to name, place, location, date, time, and situation. Memory is intact to immediate, past , and current events. Speech: No aphasia, dysarthria, or dysphonia. Cranial nerves 2-12 grossly in tact. Motor: Patient has 5/5 strength in all muscle groups of bilateral upper and lower extremities to include deltoids, biceps, triceps, brachioradialis, wrist flexors and extensors, assistant business manager, intrinsic fingers, iliopsoas, quadriceps, hamstring, plantar flexion, dorsiflexion, and EHL testing, with the e xception of bilateral lower extremities is equal and 5/5 but guarded due to pain response regard to l ower back pain. Sensation is intact to light touch throughout all dermatome distributions upper extr emities. Negative straight leg raise. Negative ADELINE test. Reflexes of biceps, triceps, brachiorad ialis, knee jerk, and ankle jerk 2+/4. Toes are downgoing bilaterally. Tavarez's negative. [place] i negative. No evidence of clonus. MEDICAL DECISION MAKING/DIAGNOSTIC STUDIES: Laboratory tests obtained 05/13/2017 show a white count of 15.21 with an H and H of 13.4 and 37.6. Coags on 05/12/2017 shows a PT of 14.0, INR of 1.06, PTT of 30.3. Chemistries on 05/13/2017 shows sodium 128, potassium 4.4, chloride 92, CO2 of 27, BUN 9, c reatinine 0.6, and a glucose of 86. Diagnostic studies/imaging: MRI of the lumbar spine obtained 05/12/2017 shows severe osteoporotic co mpression fracture of L1. There is mild osteoporotic compression fracture of L4. IMPRESSION: 1. Mild compression fracture L4. 2. Severe compression fracture L1. 3. Multiple medical problems. 4. Fall. PLAN AND DISCUSSION: The patient is an 81-year-old male, who was seen evaluated both by me and Dr. Chuy nj. He is complaining of isolated lumbar spine pain. He has no pain with fist percussion to his thoracic spine or cervical spine. He has no upper extremity complaints such as numbness, tingling, o r weakness. He denies any lower extremity complaints. No pain in the buttocks. No numbness, tingli ng, or weakness in his legs. The weakness that he has in his legs is related to the back pain that marizol lopez is experiencing with motor exam. He has isolated lumbar spine pain. There is a severe compression fracture noted of L1 and also a compression fracture noted of L4. Patient was seen and evaluated rosana by and Dr. Pimentel, and he is scheduled today at 3 o'clock to get an interventional radiology pr [facility], in which a kyphoplasty will be performed. The risks were discussed with the patient, and ey elected to proceed with this. Dr. Pimentel did speak with the patient regarding surgical treatments for this, and they would like to proceed with the treatment with Interventional Radiology. All ques tions and concerns were answered. Patient understands and agrees. /[id number]/MODL
[2017-05-14 07:47] VITALS: RESP 18
--- NOTE | 2017-05-14 09:09 | NEUSURGPN ---
Assessment/Plan: A: 81 yo M s/p kyphoplasty at L1, L4 by IR due to compression fx and back pain P: Pain well managed this am PT/OT Neuro intact OK for DC from NS standpoint Call NS with any questions or concerns D/w Dr Pimentel Follow up PRN as outpatient Subjective: Pt resting at edge of bed, he states his is coming at 10AM to pick him up. He states his pain is better after kyphoplasty. Objective: AAOx3 NAD VSS MAEx4 Motor 5/5 BLE +LT Urinary Catheter in Place: No - Physician Discussed Patient with : [facility] Physical Exam - Vitals, I&O, Labs I and O 05/13/17 05/14/17 05/15/17 05:59 05:59 05:59 Intake Total 1850 Output Total 1625 500 Balance -1625 1350 Weight 65.771 kg 65.771 kg Intake: Oral (ml) 300 IV Intake (ml) 1550 Output: Urine (ml) 1625 500 Urinal 1625 500 Estimated Blood Loss (ml) 0 Other: Intake Quantity Yes Sufficient Number of Voids Toilet 1 Urinal 1 1 Number of Stools Urinal 0 Vital Signs Temp Pulse Resp BP Pulse Ox 36.6 C 76 18 139/60 H 96 05/14/17 07:46 05/14/17 07:46 05/14/17 07:46 05/14/17 07:46 05/14/17 07:46 Laboratory Results 05/14/17 05:04 05/14/17 05:04 ICD10 Worksheet Patient Problems: Problems Problem Status Onset Fracture, lumbar vertebra, compression Acute Bronchiectasis Acute Bronchiectasis Acute Dyspnea Acute Hyponatremia Acute Hypoxia Acute Leukocytosis Acute Mycobacterium avium-intracellulare complex Acute Urinary tract infection Acute
[2017-05-14] MEDS: POLYETHYLENE GLYCOL 3350 17 GM PKT PO PRN (09:11)
[2017-05-14] MEDS: SENNOSIDES/DOCUSATE SODIUM TAB PO SCH (09:12)
[2017-05-14] MEDS: ACETAMINOPHEN 500 MG TAB PO SCH (09:12)
[2017-05-14] MEDS: LIDOCAINE 5% 1 EA PATCH TD SCH (09:13)
[2017-05-14] MEDS: BACITRACIN OINTMENT 1 PACKET TP SCH (09:13)
[2017-05-14] MEDS: LINACLOTIDE 145 MCG PO SCH (09:14)
[2017-05-14] MEDS: NON-FORMULARY NEW DRUG (Fluticasone/Vilanterol [Breo Ellipta 200-25 Mcg Inh] 1 EACH) IH SCH (09:14)
[2017-05-14] MEDS: PATCH REMOVAL 1 EA PATCH TD SCH (09:18)
--- NOTE | 2017-05-14 11:42 | ASMTCMCOM ---
CM Note CM Note Notes: Met with patient and his . Mild confusion regarding arrangement for HHC that would be sperate from [facility]. They have chosen [facility] for HHC as therapy recommending PT/OT home eval and treat. Referral to [facility]. Patient is dressed and anxious to go home. Explained that hospitalist will be the Physician to discharge. CM to follow. Date Signed: 05/14/2017 11:41 AM Electronically Signed By:Jaimee Hayes RN
[2017-05-14 11:49] VITALS: BP 127/69; PULSE 67; TEMP 97.6; O2SAT 99
--- NOTE | 2017-05-14 15:07 | PDIAF ---
- Diagnosis Diagnosis: lumbar compression fracture Code Status: Full Code - Medication Management Discharge Medications: Medications to Continue on Transfer Fluticasone/Vilanterol [Breo Ellipta 200-25 Mcg INH] 1 each IH DAILY 05/12/17 [ Last Taken Unknown] Herbals/Supplements -Info Only 1 ea PO DAILY 05/12/17 [Last Taken Unknown] Lidocaine 5% [Lidoderm 5% Patch (*)] 1 ea TD DAILY 05/12/17 [Last Taken 05/11/17 ] Linaclotide [Linzess] 145 mcg PO DAILY 05/12/17 [Last Taken 05/10/17] guaiFENesin [Mucinex 600 MG (*)] 600 mg PO BID 05/12/17 [Last Taken Unknown] Discharge Medications: Refer to the Discharge Home Medication list for PRN reason. - Orders Services needed: Home Care, Occupational Therapy, Speech Language Pathologist Home Care Face to Face: I certify that this patient was under my care and that I had the required [id number] encounter meeting the encounter requirements on the discharge day. My findings support the fact that the patient is homebound as defined in Home Care Face to Face Continued: CMS Chapter 7 Medicare Benefits Manual 30.1.1 , The condition of the patient is such that there exists a normal inability to leave home and consequently, leaving home would require a considerable and taxing effort. Isolation Type: None Diet Recommendation: no restrictions on diet Diet Texture: Regular Texture Diet, Thin Liquids - Follow Up Care Current Providers and Referrals: Joshua Aguilar MD [Medical Doctor] - Carolyn Pimentel MD [Medical Doctor] - Patient,NotPresent [Unknown] - As per Instructions
--- NOTE | 2017-05-14 15:11 | HOSPPROG ---
Hospitalist Progress Note Assessment/Plan: 81 yo male admitted with lumbar compression fractures. Treated with kyphoplasty per IR Now doing better will f/u with PCP in one week ready for d/c #Acute lumbar back pain: due to lumbar compression fractures. -IR performed kyphoplasty -Dr. Pimentel's consulation -will d/c to [facility] #Chronic hypoxic resp failure: chronic ANGELA, bronchiectasis. Stable. Cont home inhaler #Hypovolemic hyponatremia: resolved #Dysphagia: appears chronic, but difficult with pills. Speech services to be provided to home Exam: NAD AAOX3 RRR CTA B S/NT/ND NO LE EDEMA MEDS: SEE MED REC TOTAL TIME SPENT ON D/C IS 35 MINUTES Objective: Vital Signs Temp Pulse Resp BP Pulse Ox 36.4 C 67 18 127/69 H 99 05/14/17 11:48 05/14/17 11:48 05/14/17 11:48 05/14/17 11:48 05/14/17 11:48 Laboratory Results 05/14/17 05:04 05/14/17 05:04 05/13/17 05/14/17 05/15/17 05:59 05:59 05:59 Intake Total 1850 Output Total 1625 500 Balance -1625 1350 PT 14.0 SEC (12.0-15.0) 05/12/17 18:55 INR 1.06 (0.83-1.16) 05/12/17 18:55 ICD10 Worksheet Patient Problems: Problems Problem Status Onset Fracture, lumbar vertebra, compression Acute Bronchiectasis Acute Bronchiectasis Acute Dyspnea Acute Hyponatremia Acute Hypoxia Acute Leukocytosis Acute Mycobacterium avium-intracellulare complex Acute Urinary tract infection Acute
--- NOTE | 2017-05-15 14:51 | ASDISCHSUM ---
Discharge Information Plan Status:Home with Home Health Medically Cleared to Leave:05/13/2017 Discharge Date:05/14/2017 04:51 PM CM D/C Disposition:Home Health Service ADT D/C Disposition:Home Health Service Projected Discharge Date:05/14/2017 11:00 AM Transportation at D/C:Family Discharge Delay Reason: Follow-Up Date:05/14/2017 11:00 AM Discharge Slot: Final Diagnosis: Placement Information Referral Type:*Home Health Care Services Referral ID:[id number] Provider Name: Address 1: Phone Number: Address 2: Fax Number: City: Selection Factors: State: Patient Contact Information Contact Name:ELAINE Relationship: Address:[address] Work Phone: Kumar:DEN[facility] Phone: [facility]/Zip Code:[place] [address] Email: Financial Information Financial Class:Medicare Advantage Plans [facility] Primary Plan Number:[id number] Secondary Plan Desc: Secondary Plan Number: Assessment Information [facility] Initial CM Assessment Living Arrangements What is your living Answers: With Spouse arrangement? Who do you live with? Type Of Residence What kind of residence do Answers: House you live in? Discharge Plan Comments Coordination Status Comments Notes: Pt is a 81 y/o man admitted for lumber back pain. He suffered an L1 and L4 compression fracture. Therapies have been ordered and awaiting recommendations. Needs are TBD at this time. CM to follow. Plan: TBD Date Signed: 05/13/2017 10:08 AM Electronically Signed By:JONATHAN Quintanilla [facility] CM Progress Note CM Note CM Note Notes: CM spoke w/ Mary, emergency room pillowcase cutter. Pt is being followed by Dr. Davin Bahena on an outpatient basis. Dr. Bahena reports that pt lives in a private home w/ his . Dr. Trevizo made a home visit the other day and had concerns regarding pts cognitive ability. CM communicated this w/ ELLEN Garcia and requested a SPL eval. Pt is currently receiving HC through the [facility]. CM to follow. Date Signed: 05/13/2017 11:28 AM Electronically Signed By:JOANTHAN Quintanilla [facility] Progress Note CM Note CM Note Notes: Met with patient and his . Mild confusion regarding arrangement for HHC that would be sperate from [facility]. They have chosen [facility] for HHC as therapy recommending PT/OT home eval and treat. Referral to [facility]. Patient is dressed and anxious to go home. Explained that hospitalist will be the Physician to discharge. CM to follow. Date Signed: 05/14/2017 11:41 AM Electronically Signed By:Jaimee Hayes RN Intervention Information Intervention Type:*Incorrect Registration Date of Service:05/12/2017 10:25 AM Patient Type:Inpatient Staff Member:ELLEN Kat Susan Hours: Discipline: Severity: Comment:
--- NOTE | 2017-05-18 12:07 | PQFORM ---
PHYSICIAN QUERY FORM Needs Your Response This query form is being sent to you to assure this patient record is coded properly. Please respond to the question below: COMMUNITY RESOURCE OFFICER QUESTION: Dr. Villafuerte, On your discharge summary you state this patient had a lumbar compression fracture, treated with kyphoplasty. On the consultation by DONNA Lindsay, he states the MRI of 05/12/17 shows a severe osteoporotic compression fracture of L1. The interventional radiologist states multilevel lumbar insufficiency fractures of L1 and L4. After study, can these fractures of the vertebrae be further defined as: ___x___ Pathologic fractures of L1 and L4 due to osteoporosis Pathologic fractures of unspecified cause Pathologic fractures of other specified cause Compression fracture, vertebra, not further specified Traumatic fracture, vertebra, due to fall. Other Thank you for clarifying, FLORIDALMA Wallace HIM Coding INSTRUCTIONS FOR RESPONSE: Answer question by clicking on the "Edit Document" button. Move cursor to area below the stars. When complete, hit "Save." Click on the "Sign" button, then click "Sign" again. Type in your PIN and hit "Enter." MTDD
--- NOTE | 2017-05-23 09:58 | POSTANESTH ---
Post Anesthetic Evaluation Cardiovascular Status: Normal, Stable, Similar to Pre-Op Cond Respiratory Status: Similar to Pre-op Cond. Level of Consciousness/Mental Status: Can Participate in Eval, Alert and Oriented Pain Control: Adequate, Prn Tx Ordered Nausea/Vomiting Control: Adequate, Prn Tx Ordered Complications Possibly Related to Anesthesia: None Noted
== END 2017-05-14 16:51 | disposition home health service (06) | DRG 516 ==
LOC: EDUNIT# → OBSVTOIN 18:53 → F3N 19:34
PROVIDERS: ADMIT Internal Medicine; ATTEND Family Medicine
PROC: 0QU03JZ Supplement Lumbar Vertebra with Synthetic Substitute, Percutaneous Approach (ICD-10-PCS; principal; 2017-05-13 18:12)
PROC: 0QS03ZZ Reposition Lumbar Vertebra, Percutaneous Approach (ICD-10-PCS; principal; 2017-05-13 18:12)
DX: M80.08XA Age-related osteoporosis with current pathological fracture, vertebra(e), initial encounter for fracture (principal); J96.11 Chronic respiratory failure with hypoxia; J47.9 Bronchiectasis, uncomplicated; R13.10 Dysphagia, unspecified; E87.1 Hypo-osmolality and hyponatremia; Z86.711 Personal history of pulmonary embolism; Z99.81 Dependence on supplemental oxygen
CPT/HCPCS: 82947-QW; 92610-GN; 97161-GP; 97165-GO; G8978-GP-CJ; G8979-GP-CI; G8987-GO-CI; G8988-GO-CI; G8996-GN-CI; G8997-GN-CI; G8998-GN-CI; J0690; J1100; J1170; J2250; J2704; J3010; J7613

== ENCOUNTER → 2017-05-12 | Outpatient (CLI) | payer OTHER | LOC: FIMAGING 15:51 | PROVIDERS: ATTEND Emergency Medicine | DX: S32.010A Wedge compression fracture of first lumbar vertebra, initial encounter for closed fracture (principal); S32.040A Wedge compression fracture of fourth lumbar vertebra, initial encounter for closed fracture; M48.05 Spinal stenosis, thoracolumbar region; M48.061 Spinal stenosis, lumbar region without neurogenic claudication; M51.26 Other intervertebral disc displacement, lumbar region ==

== ENCOUNTER 2017-05-30 10:25 | Emergency (ER) | payer OTHER ==
--- NOTE | 2017-05-30 10:32 | EDPHY ---
HPI/HX/ROS/PE/MDM Narrative: CHIEF COMPLAINT: Back pain HPI: The patient is an 81 y/o male with a history of bronchiectasis and prior PE arriving via EMS complaining of severe right-sided thoracic back pain onset this morning. He had a fall a month ago causing a severe L4 compression fracture. This was repaired with a kyphoplasty [address] Luis Antonio Pimentel. He does not believe he was placed on anticoagulants following that surgery and is not currently on anticoagulants. His pain today is much higher and sits just below his right scapula. It is worse with movement, but not palpation. He received 324mg aspirin on scene and 100mcg IV Fentanyl en route for pain. He denies recent illness or trauma since the surgery. No fever, chest pain. He has baseline shortness of breath and tachypnea related to his bronchiectasis and requires 24-hour home O2. REVIEW OF SYSTEMS: Aside from elements discussed in the HPI, a comprehensive 10-point review of systems was reviewed and is negative. PMH: 1. Myobacterium avium intracellular severe bronchiectasis, chronic respiratory failure on 3L home O2 24/. 2. L4 kyphoplasty following severe L4 compression fracture from fall 2016. 3. 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 Retired. Nonsmoker. Using CBD oil for pain. Patient of Dr. Reynaga's. PHYSICAL EXAM: General:Patient is alert, appears uncomfortable. ENT:Eyes are normal to inspection. ENT inspection normal. Neck: Normal inspection. Full range of motion. Respiratory:No respiratory distress. Breath sounds normal bilaterally. Mildly tachypneic. Cardiovascular: Regular rate and rhythm. Strong peripheral pulses. Normal cap refill. Abdomen:The abdomen is nontender to palpation. There are no peritoneal signs. There are normal bowel sounds. Back: Normal to inspection. No tenderness to palpation. Skin: Normal color. No rash. Warm and dry. Extremities: Normal appearance. Full range of motion. Neuro: Oriented x3. Normal motor function. Normal sensory function. ED Course: This is an 81 y/o male with history of bronchiectasis requiring 24/7 O2 and recent kyphoplasty for lumbar fracture who presents with acute right-sided back pain below his scapula that is worse with movement. No tenderness or trauma on exam. He is neurovascularly intact. Patient is at high risk for a PE given history of PE and recent surgery, so I have recommended a chest CTA, which he agrees to. IV established, labs drawn, UA ordered. CTA is negative for PE or other acute cause for his pain. 1 tab Percocet administered for pain. Still awaiting urine sample from patient. Labs are unremarkable. UA is normal, which lessens suspicion for a kidney stone. Reassessed patient and discussed work up thus far. He is feeling improved after Percocet and would like to go home. Recommended follow up with his PCP in a few days. Return precautions discussed. He is comfortable with this plan. MDM: The patient complains of right lateral reproducible chest pain in the setting of recent kyphoplasty. Given his history of PE and recent procedure, the most significant possible disease would be pulmonary embolus, which prompted CT angiogram of the chest which is thankfully negative. We performed an extensive workup, but no evidence for etiology of symptoms is found. This was a challenging patient interaction. I explained to the patient that given his back history, that this may represent radicular type pain or possibly referred pain, but the patient tells me this is not possible. The patient insisted on standing up several times to demonstrate for me that it hurt when he stands up, despite my suggesting that that was not necessary. At one point he requested that I "supervise" him swallowing his Percocet tablet and remain in the room with him until they kicked in to see if they alleviated his pain. I discussed our workup as well as potential options for the patient with the patient and his extensively, but they appear to have a limited understanding of the subjective our discussion. This appears to be somewhat baseline for the patient. Ultimately, the patient was comfortable with the plan to go home with a prescription for Percocet. I strongly encouraged him to follow up with his primary care physician as soon as possible for further workup and treatment. - Data Points Imaging Results: Imaging Impressions Chest/Thorax CTA 05/30/17 10:47 Impression: 1. No evidence of pulmonary embolic disease. 2. Findings of ANGELA not significantly changed from October 2016. 3. Hiatal hernia. 4. Spinal degenerative changes. Results called and discussed with Amador Trevino MD on 05/30/2017 at 13:14 Imaging: Discussed imaging studies w/ call or contact centre team leader Radiologist, I viewed and interpreted images myself Laboratory Results: Laboratory Results 05/30/17 10:30 05/30/17 10:30 05/30/17 05/30/17 05/30/17 13:53 10:54 10:30 WBC RBC Hgb POC Hgb 13.6 gm/dL L gm/dL (13.7-17.5) Hct POC Hct 40 % % (40-51) MCV MCH MCHC RDW Plt Count MPV Neut % (Auto) Lymph % (Auto) [place] % (Auto) Eos % (Auto) Baso % (Auto) Nucleat RBC Rel Count Absolute Neuts (auto) Absolute Lymphs (auto) Absolute Monos (auto) Absolute Eos (auto) Absolute Basos (auto) Absolute Nucleated RBC Immature Gran % Immature Gran # PT INR APTT POC Sodium 134 mEq/L L mEq/L (135-145) Sodium 135 mEq/L mEq/L (135-145) POC Potassium 4.1 mEq/L mEq/L (3.3-5.0) Potassium 5.1 mEq/L mEq/L (3.5-5.2) POC Chloride 97 mEq/L mEq/L (97-110) Chloride 97 mEq/L mEq/L (97-110) Carbon Dioxide 27 mEq/l mEq/l (22-31) Anion Gap 11 mEq/L mEq/L (8-16) POC BUN 8 mg/dL mg/dL (7-23) BUN 8 mg/dL mg/dL (7-23) Creatinine 0.7 mg/dL mg/dL (0.7-1.3) POC Creatinine 0.7 mg/dL mg/dL (0.7-1.3) Estimated GFR > 60 Glucose 103 mg/dL H mg/dL (70-100) POC Glucose 129 mg/dL H mg/dL (70-100) Calcium 9.7 mg/dL mg/dL (8.5-10.4) Troponin I < 0.012 ng/mL ng/mL (0.000-0.034) Urine Color YELLOW Urine Appearance CLEAR Urine pH 7.0 (5.0-7.5) Ur Specific [place] > 1.035 H (1.002-1.030) Urine Protein NEGATIVE (NEGATIVE) Urine Ketones NEGATIVE (NEGATIVE) Urine Blood NEGATIVE (NEGATIVE) Urine Nitrate NEGATIVE (NEGATIVE) Urine Bilirubin NEGATIVE (NEGATIVE) Urine Urobilinogen NEGATIVE EU EU (0.2-1.0) Ur Leukocyte Esterase NEGATIVE (NEGATIVE) Urine Glucose NEGATIVE (NEGATIVE) 05/30/17 05/30/17 10:30 10:30 WBC 8.92 10^3/uL 10^3/uL (3.80-9.50) RBC 4.39 10^6/uL L 10^6/uL (4.40-6.38) Hgb 14.0 g/dL g/dL (13.7-17.5) POC Hgb Hct 40.1 % % (40.0-51.0) POC Hct MCV 91.3 fL fL (81.5-99.8) MCH 31.9 pg pg (27.9-34.1) MCHC 34.9 g/dL g/dL (32.4-36.7) RDW 14.8 % % (11.5-15.2) Plt Count 380 10^3/uL 10^3/uL (150-400) MPV 10.0 fL fL (8.7-11.7) Neut % (Auto) 68.7 % % (39.3-74.2) Lymph % (Auto) 11.9 % L % (15.0-45.0) [place] % (Auto) 15.8 % H % (4.5-13.0) Eos % (Auto) 1.7 % % (0.6-7.6) Baso % (Auto) 0.7 % % (0.3-1.7) Nucleat RBC Rel Count 0.0 % % (0.0-0.2) Absolute Neuts (auto) 6.13 10^3/uL 10^3/uL (1.70-6.50) Absolute Lymphs (auto) 1.06 10^3/uL 10^3/uL (1.00-3.00) Absolute Monos (auto) 1.41 10^3/uL H 10^3/uL (0.30-0.80) Absolute Eos (auto) 0.15 10^3/uL 10^3/uL (0.03-0.40) Absolute Basos (auto) 0.06 10^3/uL 10^3/uL (0.02-0.10) Absolute Nucleated RBC 0.00 10^3/uL 10^3/uL (0-0.01) Immature Gran % 1.2 % H % (0.0-1.1) Immature Gran # 0.11 10^3/uL H 10^3/uL (0.00-0.10) PT 13.2 SEC SEC (12.0-15.0) INR 0.98 (0.83-1.16) APTT 28.6 SEC SEC (23.0-38.0) POC Sodium Sodium POC Potassium Potassium POC Chloride Chloride Carbon Dioxide Anion Gap POC BUN BUN Creatinine POC Creatinine Estimated GFR Glucose POC Glucose Calcium Troponin I Urine Color Urine Appearance Urine pH Ur Specific [place] Urine Protein Urine Ketones Urine Blood Urine Nitrate Urine Bilirubin Urine Urobilinogen Ur Leukocyte Esterase Urine Glucose Medications Given: Discontinued Medications Oxycodone/Acetaminophen (Percocet 5/325) 1 tab PO EDNOW ONE Stop: 05/30/17 14:01 Last Admin: 05/30/17 14:02 Dose: 1 tab Point of Care Test Results: 05/30/17 10:54 POC Sodium 134 L POC Potassium 4.1 POC Chloride 97 POC BUN 8 POC Creatinine 0.7 POC Glucose 129 H General Initial Vital Signs: Initial Vital Signs Temperature (C) 36.5 C 05/30/17 10:25 Heart Rate 59 L 05/30/17 10:25 Respiratory Rate 24 H 05/30/17 10:25 Blood Pressure 137/70 H 05/30/17 10:25 O2 Sat (%) 97 05/30/17 10:25 O2 Delivery Mode Room Air O2 (L/minute) 2 Allergies/Adverse Reactions: No Known Allergies Allergy (Verified 04/29/17 16:31) Home Medications: Medication Instructions Recorded Herbals/Supplements -Info Only 1 ea PO DAILY 05/12/17 Linaclotide [Linzess] 145 mcg PO DAILY 05/12/17 Lorazepam 05/30/17 oxyCODONE/APAP 5/325 [Percocet 1 - 2 tab PO Q6H PRN #20 tab 05/30/17 5/325 (*)] Departure - Departure Disposition: Home, Routine, Self-Care Clinical Impression: Back pain Condition: Good Instructions: Oxycodone/Acetaminophen (By mouth), Back Pain (ED) Additional Instructions: 1. Use Percocet as prescribed when needed for severe pain. 2. Try applying a heating pad or ice pack to sore areas 3. Follow up with your primary care provider for unimproved symptoms over the next few days. 4. Return to the ED for severe pain, chest pain, shortness of breath, or other worsening of condition. Referrals: Davin Reynaga MD [Medical Doctor] - As per Instructions Prescriptions: oxyCODONE/APAP 5/325 [Percocet 5/325 (*)] 1 - 2 tab PO Q6H PRN #20 tab PRN Reason: Pain, Severe Report Scribed for: Amador Trevino Report Scribed by: Zo Mckenna Date of Report: 05/30/17 Time of Report: 10:32 Physician Review and Approval Statement: Portions of this note were transcribed by an ED scribe. I personally performed the history, physical exam, and medical decision making; and confirm the accuracy of the information in the transcribed note.
[2017-05-30 10:43] LABS: PLATELET COUNT 380 10^3/uL (150-400)
[2017-05-30 10:51] LABS: INR 0.98 (0.83-1.16); PROTIME(PATIENT) 13.2 SEC (12.0-15.0)
[2017-05-30] MEDS ORDERED: IOPAMIDOL (ISOVUE 370) 100 ML BTL IV ONE (11:06)
[2017-05-30] MEDS ORDERED: OXYCODONE/APAP 5/325 TAB PO ONE (14:00)
[2017-05-30 15:16] VITALS: BP 135/80; PULSE 63; RESP 18; TEMP 97; O2SAT 95
== END 2017-05-30 15:16 | disposition home or self-care (01) ==
LOC: EDUNIT#
DX: M54.9 Dorsalgia, unspecified (principal)
CPT/HCPCS: 71275; 99285; Q9967; 82947-QW

== ENCOUNTER → 2017-06-01 | Outpatient (CLI) | payer OTHER | LOC: FIMAGING 18:15 | PROVIDERS: ATTEND Physician Assistant | DX: S22.070A Wedge compression fracture of T9-T10 vertebra, initial encounter for closed fracture (principal) ==

== ENCOUNTER 2017-06-04 12:41 | Day surgery (SDC) | payer OTHER ==
[2017-06-04] MEDS ORDERED: NS 1,000 ML IV ONE (13:48)
[2017-06-04] MEDS ORDERED: ceFAZolin 2 GM/SWFI 2 GM/20 ML SYR IVP ONE (13:48)
[2017-06-04] MEDS ORDERED: GLUCAGON HCL 1 MG VIAL IVP PRN (13:48)
[2017-06-04] MEDS ORDERED: PROTAMINE SULFATE 50 MG/5 ML VIAL IVP PRN (13:48)
[2017-06-04] MEDS ORDERED: NALOXONE HCL 0.4 MG/ML INJ IVP PRN ×2 (13:48→15:36)
[2017-06-04] MEDS ORDERED: ALTEPLASE 2 MG VIAL IVP PRN (13:48)
[2017-06-04] MEDS ORDERED: DEXAMETHASONE 10 MG/ML VIAL IVP ONE (13:48)
[2017-06-04] MEDS ORDERED: MIDAZOLAM 2 MG/2 ML VIAL IVP PRN (13:48)
[2017-06-04] MEDS ORDERED: MEPERIDINE 25 MG/ML SYR IVP PRN (13:48)
[2017-06-04] MEDS ORDERED: FLUMAZENIL 0.5 MG/5 ML MDV IVP PRN (13:48)
[2017-06-04] MEDS ORDERED: HEPARIN 10,000 UNIT/10 ML MDV (1,000 UNIT/ML) IVP PRN (13:48)
[2017-06-04] MEDS ORDERED: fentaNYL 100 MCG/2 ML INJ IVP PRN ×2 (13:48→15:36)
[2017-06-04 14:16] LABS: PLATELET COUNT 329 10^3/uL (150-400)
[2017-06-04 14:22] VITALS: PULSE 61
[2017-06-04 14:27] LABS: INR 0.94 (0.83-1.16); PROTIME(PATIENT) 12.8 SEC (12.0-15.0)
[2017-06-04] MEDS ORDERED: DEXMEDETOMIDINE/NS 4MCG/ML 50 ML BTL IV ONE (14:31)
[2017-06-04] MEDS ORDERED: MIDAZOLAM 2 MG/2 ML VIAL ONE (14:34)
[2017-06-04] MEDS ORDERED: PROPOFOL 200 MG/20 ML VIAL ONE (14:35)
[2017-06-04] MEDS ORDERED: LIDOCAINE 1% 300 MG/30 ML SDV ONE (14:42)
[2017-06-04] MEDS ORDERED: BUPIVACAINE 0.5% 30 ML SDV ONE (14:42)
--- NOTE | 2017-06-04 14:45 | PDGENHP ---
History & Physical Chief Complaint: NEW T9 OSTEOPOROSIS FRACTURE History of Present Illness: BIG SUCCESS FROM PREVIOUS THORACIC KYPHOPLASTY. NOW WITH NEW PAIN SINCE THURSDAY. NEW T9 FRACTURE. Pertinent Past, Social, Family History: TONSILECTOMY. NONSMOKER. Relevant Physical Exam: UNCOMFORTABLE SITTING UPRIGHT AT 90 DEGREES. Cardiorespiratory Assessment: RRR, CTA
--- NOTE | 2017-06-04 14:45 | PDPROPOC ---
Sedation Plan of Care Sedation Plan of Care: vital signs stable, mental status noted, patient educated of risks, benefits, alternatives, patient can tolerate sedation ASA Classification: ASA 3 Planned drugs: fentanyl, midazolam Mallampati Score: Class 3 Mallampati Reference Image: Patient passed 3-3-2 rule?: Yes
[2017-06-04] MEDS ORDERED: ONDANSETRON 4 MG/2 ML VIAL IVP PRN (15:36)
[2017-06-04] MEDS ORDERED: ALBUTEROL 3 ML DEYVIAL IH PRN (15:36)
--- NOTE | 2017-06-04 15:36 | PDANEPAE ---
ANE Past Medical History - Cardiovascular History Hx Hypertension: No Hx Arrhythmias: No Hx Chest Pain: No Hx Coronary Artery / Peripheral Vascular Disease: No Hx CHF / Valvular Disease: No Hx Palpitations: No - Pulmonary History Hx COPD: No Hx Asthma/Reactive Airway Disease: Yes Hx Recent Upper Respiratory Infection: No Hx Oxygen in Use at Home: Yes O2 in Use at Home (L/minute): 3-4L Hx Sleep Apnea: No Sleep Apnea Screening Result - Last Documented: Negative Pulmonary History Comment: Mycobacterium Avium intracellulare - Neurologic History Hx Cerebrovascular Accident: No Hx Seizures: No Hx Dementia: No - Endocrine History Hx Diabetes: No - Renal History Hx Renal Disorders: No - Liver History Hx Hepatic Disorders: No - Neurological & Psychiatric Hx Hx Neurological and Psychiatric Disorders: No - Cancer History Hx Cancer: No - Congenital Disorder History Hx Congenital Disorders: No - GI History Hx Gastrointestinal Disorders: No - Chronic Pain History Chronic Pain: Yes (back, right arm r/t accident in Decemeber) - Surgical History Prior Surgeries: Tonsillectomy as a child ANE Review of Systems Review of Systems: - Exercise capacity METS (RN): 1 METS ANE Patient History - Allergies Allergies/Adverse Reactions: No Known Allergies Allergy (Verified 06/02/17 16:29) - Home Medications Home Medications: Lorazepam mg PO PRN 05/30/17 [Last Taken 06/04/17] Advil 2 tab PO Q4H 06/02/17 [Last Taken 06/04/17] Arnica Flower Extract PO DAILY 06/02/17 [Last Taken 06/04/17] Tylenol 1 tab PO Q4H 06/02/17 [Last Taken 06/04/17] - Smoking Hx Smoking Status: Former smoker - Family Anes Hx Family Hx Anesthesia Complications: None ANE Labs/Vital Signs - Labs Result Diagrams: 06/04/17 14:00 - Vital Signs Blood Pressure: 144/77 Heart Rate: 61 Respiratory Rate: 18 O2 Sat (%): 100 Height: 187.96 cm Weight: 63.503 kg ANE Physical Exam - Airway Neck exam: FROM Mallampati Score: Class 2 Mouth exam: normal dental/mouth exam - Pulmonary Pulmonary: no respiratory distress, reduced air movement, expiratory wheeze, bronchial breath sounds - Cardiovascular Cardiovascular: regular rate and rhythym, no murmur, rub, or gallop - ASA Status ASA Status: IV ANE Anesthesia Plan Anesthesia Plan: MAC
--- NOTE | 2017-06-04 16:14 | PDRADPN ---
Radiology Procedure Note Date of Procedure: 06/04/17 Radiologist: Denise Ge Anesthesia: Other (Specify) (MAC) Pre-op Diagnosis: BACK PAIN WITH T9 FRACTURE Post-op Diagnosis: same Indication: severe pain Procedure: T9 kyphoplasty Finding(s): see report Inf/Abcess present in the surg proc area at time of surgery?: No Complications: none
[2017-06-04 17:16] VITALS: TEMP 97.5
[2017-06-04 19:24] VITALS: BP 118/71; O2SAT 97
[2017-06-04 19:26] VITALS: RESP 18
--- NOTE | 2017-06-05 10:57 | POSTANESTH ---
Post Anesthetic Evaluation Cardiovascular Status: Normal, Stable, Similar to Pre-Op Cond Respiratory Status: Normal, Stable, Similar to Pre-op Cond. Level of Consciousness/Mental Status: Mildly Sleepy, Arousable Pain Control: Adequate, Prn Tx Ordered Nausea/Vomiting Control: Adequate, Prn Tx Ordered Complications Possibly Related to Anesthesia: None Noted
== END 2017-06-04 19:18 | disposition home or self-care (01) ==
LOC: FIMAGING 12:41
PROVIDERS: ATTEND Neurological Surgery
PROC: 0PU43JZ Supplement Thoracic Vertebra with Synthetic Substitute, Percutaneous Approach (ICD-10-PCS; principal; 2017-06-04 15:57)
DX: M80.08XA Age-related osteoporosis with current pathological fracture, vertebra(e), initial encounter for fracture (principal); M54.9 Dorsalgia, unspecified; G89.29 Other chronic pain; Z99.81 Dependence on supplemental oxygen; Z87.891 Personal history of nicotine dependence
CPT/HCPCS: J0690; J1100; J2250; J2704

== ENCOUNTER 2017-06-09 20:12 | Inpatient (IN) | payer OTHER ==
--- NOTE | 2017-06-09 20:23 | EDPHY ---
HPI/HX/ROS/PE/MDM Narrative: CHIEF COMPLAINT: Weakness, fever, shaking HISTORY OF PRESENT ILLNESS: The patient is an 81 y/o male with a history of bronchiectasis, L4 and T9 kyphoplasty, and a PE complaining of general weakness, fever, fatigue, and shaking. Earlier in April he had a L4 kyphoplasty and on 06/04/17, 5 days ago , he had a T9 kyphoplasty. Denies taking antibiotics after the kyphoplasty. Today he had a fever of 100 degrees at home, and developed chills, shaking, and weakness. Around 16:00, 5 hours ago, he developed a foggy brain. His daughter called Dr. Ge, radiologist, who was concerned that the patient was septic and advised that he present to the ED. At triage his O2Sats are 85% on 3.5L room air , which his daughter attributes to stress due to his current symptoms and moving around. Patient denies any numbness or tingling, or any focal weakness. No chest pain, palpitations, vomiting, diarrhea, urinary complaints, headache, lightheadedness. Followed by Dr. Reynaga REVIEW OF SYSTEMS: Aside from elements discussed in the HPI, a comprehensive 10-point review of systems was reviewed and is negative. PAST MEDICAL HISTORY: Bronchiectasis, L4 and T9 kyphoplasty, appendectomy, prostatectomy (05/2015) SOCIAL HISTORY: Daughter and at bedside, lives at the [facility], uses CBD oil for pain, nonsmoker VITAL SIGNS: Reviewed by me GENERAL: Elderly, tired, thin. Needed significant assistance to get into the gurney and move about. HEENT: Atraumatic. Eyes: No icterus, no injection. Mouth: moist mucous membranes. No erythema or lesions. Neck: supple with no adenopathy. LUNGS: Clear to auscultation bilaterally, no wheezes, rhonchi or rales. CARDIAC: Mildly tachycardic, no rubs, murmurs or gallops. ABDOMEN: Soft, nontender, nondistended, bowel sounds normal. BACK: No CVA tenderness. EXTREMITIES: No trauma. No edema. Range of motion is normal throughout. NEURO: Alert and oriented, grossly nonfocal. SKIN: Warm and dry, no rash. PSYCHIATRIC: Normal mentation, no agitation. Portions of this note were transcribed by a medical imaging technologist. I personally performed a history, physical exam, medical decision making, and confirmed accuracy of information the transcribed note. ED Course: The patient is an elderly 81 y/o male with a history of bronchiectasis, L4 and T9 kyphoplasty, presenting with weakness and a subjective fever. He is 5 days post-op from a T9 kyphoplasty and was advised to present to the ED to rule out sepsis. At triage his O2Sats were around 85% on 3.5L, but it is now 97% on 3.5L. His physical exam is normal, other than fatigue and some pallor. Labs, UA , chest x-ray, and EKG ordered. 1L IV NS administered. 2100: 12-LEAD EKG: Please see the full report in [facility]. My interpretation: Sinus rhythm with a rate of 97, abnormal T waves 2142: Chest x-ray reveals increasing patchy right basilar airspace opacities which likely represent a worsening pneumonia compared to his CT 2 weeks ago. 2152: Spoke with Dr. Antonio, radiologist, regarding patient's chest x-ray. 2153: Reassessed patient and discussed imaging and laboratory results. He will need to be admitted for his pneumonia, patient and his family are comfortable with this plan. 750mg IV Levaquin administered. 2244: Spoke with hospitalist service, Dr. Currie accepts admission of this patient. The patient did have a CT scan of the chest performed prior to admission to his inpatient bed. This demonstrates no pulmonary embolism. There is a definitive right lower lobe pneumonia with increase in pulmonary consolidation. Sepsis Evaluation Note: The patient presents to the ED with pneumonia identified as an acute infection. The patient did not have evidence of end-organ dysfunction and did not meet criteria for severe sepsis. MDM: Differential diagnosis of the patient's weakness was considered including but not limited to electrolyte abnormality, anemia, cardiac ischemia, spinal cord abnormality, and infectious causes. - Data Points Imaging Results: Imaging Impressions Chest X-Ray 06/09/17 20:42 Impression: 1. Increasing patchy right basilar airspace opacities which likely represent a worsening pneumonia. 2. 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 Imaging: Discussed imaging studies w/ call center agent Radiologist, I viewed and interpreted images myself Laboratory Results: Laboratory Results 06/09/17 20:47 06/09/17 20:47 06/09/17 06/09/17 06/09/17 21:03 20:47 20:47 WBC RBC Hgb Hct MCV MCH MCHC RDW Plt Count MPV Neut % (Auto) Lymph % (Auto) [place] % (Auto) Eos % (Auto) Baso % (Auto) Nucleat RBC Rel Count Absolute Neuts (auto) Absolute Lymphs (auto) Absolute Monos (auto) Absolute Eos (auto) Absolute Basos (auto) Absolute Nucleated RBC Immature Gran % Immature Gran # D-Dimer VBG Lactic Acid Sodium Potassium Chloride Carbon Dioxide Anion Gap BUN Creatinine Estimated GFR Glucose Calcium Troponin I < 0.012 ng/mL ng/mL (0.000-0.034) Procalcitonin 0.31 ng/mL H ng/mL (0.02-0.10) Nasal Influenza A PCR NEGATIVE FOR FLU A (NEGATIVE) Nasal Influenza B PCR NEGATIVE FOR FLU B (NEGATIVE) 06/09/17 06/09/17 06/09/17 20:47 20:47 20:47 WBC RBC Hgb Hct MCV MCH MCHC RDW Plt Count MPV Neut % (Auto) Lymph % (Auto) [place] % (Auto) Eos % (Auto) Baso % (Auto) Nucleat RBC Rel Count Absolute Neuts (auto) Absolute Lymphs (auto) Absolute Monos (auto) Absolute Eos (auto) Absolute Basos (auto) Absolute Nucleated RBC Immature Gran % Immature Gran # D-Dimer 1.15 ug/mLFEU H ug/mLFEU (0.00-0.50) VBG Lactic Acid 1.2 mmol/L mmol/L (0.7-2.1) Sodium 132 mEq/L L mEq/L (135-145) Potassium 4.5 mEq/L mEq/L (3.5-5.2) Chloride 93 mEq/L L mEq/L (97-110) Carbon Dioxide 26 mEq/l mEq/l (22-31) Anion Gap 13 mEq/L mEq/L (8-16) BUN 11 mg/dL mg/dL (7-23) Creatinine 0.6 mg/dL L mg/dL (0.7-1.3) Estimated GFR > 60 Glucose 121 mg/dL H mg/dL (70-100) Calcium 9.2 mg/dL mg/dL (8.5-10.4) Troponin I Procalcitonin Nasal Influenza A PCR Nasal Influenza B PCR 01/30/18 20:47 WBC 13.81 10^3/uL H 10^3/uL (3.80-9.50) RBC 4.23 10^6/uL L 10^6/uL (4.40-6.38) Hgb 13.4 g/dL L g/dL (13.7-17.5) Hct 38.0 % L % (40.0-51.0) MCV 89.8 fL fL (81.5-99.8) MCH 31.7 pg pg (27.9-34.1) MCHC 35.3 g/dL g/dL (32.4-36.7) RDW 15.0 % % (11.5-15.2) Plt Count 315 10^3/uL 10^3/uL (150-400) MPV 9.7 fL fL (8.7-11.7) Neut % (Auto) 85.0 % H % (39.3-74.2) Lymph % (Auto) 2.0 % L % (15.0-45.0) [place] % (Auto) 9.2 % % (4.5-13.0) Eos % (Auto) 2.5 % % (0.6-7.6) Baso % (Auto) 0.4 % % (0.3-1.7) Nucleat RBC Rel Count 0.0 % % (0.0-0.2) Absolute Neuts (auto) 11.72 10^3/uL H 10^3/uL (1.70-6.50) Absolute Lymphs (auto) 0.28 10^3/uL L 10^3/uL (1.00-3.00) Absolute Monos (auto) 1.27 10^3/uL H 10^3/uL (0.30-0.80) Absolute Eos (auto) 0.35 10^3/uL 10^3/uL (0.03-0.40) Absolute Basos (auto) 0.06 10^3/uL 10^3/uL (0.02-0.10) Absolute Nucleated RBC 0.00 10^3/uL 10^3/uL (0-0.01) Immature Gran % 0.9 % % (0.0-1.1) Immature Gran # 0.13 10^3/uL H 10^3/uL (0.00-0.10) D-Dimer VBG Lactic Acid Sodium Potassium Chloride Carbon Dioxide Anion Gap BUN Creatinine Estimated GFR Glucose Calcium Troponin I Procalcitonin Nasal Influenza A PCR Nasal Influenza B PCR Medications Given: Discontinued Medications Sodium Chloride (Ns) 1,000 mls @ 0 mls/hr IV ONCE ONE; Wide Open PRN Reason: Protocol Stop: 06/09/17 20:43 Last Admin: 06/09/17 20:58 Dose: 1,000 mls Levofloxacin/Dextrose (Levaquin 750 Mg (Premix)) 150 mls @ 100 mls/hr IV EDNOW ONE PRN Reason: Protocol Stop: 06/09/17 23:15 Last Admin: 06/09/17 22:00 Dose: 150 mls Sodium Chloride (Ns) 2,000 mls @ 4,000 mls/hr 30 ml/kg infuse over 30 min ( 2000 ml) IV EDNOW ONE PRN Reason: Protocol Stop: 06/09/17 22:15 Last Admin: 06/09/17 22:00 Dose: 2,000 mls General Time Seen by Provider: 06/09/17 20:22 Initial Vital Signs: Initial Vital Signs Temperature (C) 36.5 C 06/09/17 20:50 Heart Rate 98 06/09/17 20:50 Respiratory Rate 22 H 06/09/17 20:50 Blood Pressure 112/69 06/09/17 20:50 O2 Sat (%) 87 L 06/09/17 20:50 O2 Delivery Mode Nasal Cannula O2 (L/minute) 3.5 Allergies/Adverse Reactions: No Known Allergies Allergy (Verified 06/02/17 16:29) Home Medications: Medication Instructions Recorded Lorazepam mg PO PRN 05/30/17 Advil 2 tab PO Q4H 06/02/17 Arnica Flower Extract PO DAILY 06/02/17 Tylenol 1 tab PO Q4H 06/02/17 Departure - Departure Disposition: [facility] Inpatient Acute Clinical Impression: Bronchiectasis Qualifiers: Bronchiectasis type: with acute lower respiratory infection Qualified Code(s): J47.0 - Bronchiectasis with acute lower respiratory infection Pneumonia Qualifiers: Pneumonia type: due to unspecified organism Laterality: right Lung location: unspecified part of lung Qualified Code(s): J18.9 - Pneumonia, unspecified organism Condition: Fair Report Scribed for: Heidy Escalera Report Scribed by: Angelika Galdamez Date of Report: 06/09/17 Time of Report: 20:23
[2017-06-09] MEDS ORDERED: NS 1,000 ML IV ONE (20:42)
[2017-06-09 20:56] LABS: PLATELET COUNT 315 10^3/uL (150-400)
--- NOTE | 2017-06-09 21:03 | CPEKG ---
Heart Rate: 97 RR Interval: 619 P-R Interval: 152 QRSD Interval: 84 QT Interval: 340 QTC Interval: 432 P [place]: 63 QRS [place]: 41 T Wave [place]: 37 EKG Severity - ABNORMAL ECG - EKG Impression: SINUS RHYTHM EKG Impression: ABNORMAL T, CONSIDER ISCHEMIA, LATERAL LEADS Electronically Signed By: Heidy Escalera 10-Jun-2017 22:42:11
[2017-06-09] MEDS ORDERED: NS 2,000 ML IV ONE (21:46)
[2017-06-09] MEDS ORDERED: ONDANSETRON DISINTEGRATING 4 MG TAB PO PRN (22:44)
[2017-06-09] MEDS ORDERED: ACETAMINOPHEN 325 MG TAB PO PRN (22:44)
[2017-06-09] MEDS ORDERED: ONDANSETRON 4 MG/2 ML VIAL IVP PRN (22:44)
[2017-06-09] MEDS ORDERED: ALBUTEROL 3 ML DEYVIAL IH PRN (22:44)
[2017-06-09] MEDS ORDERED: IOPAMIDOL (ISOVUE 370) 100 ML BTL IV ONE (22:56)
--- NOTE | 2017-06-09 23:14 | PDGENHP ---
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 Patient and state that symptoms started on day of admission. Patient is a frail appearing gentleman who has been treated for two vertebral compression fractures over the past month with kyphoplasty. He states that today he began to notice generalized weakness that lead to difficulty walking. Additionally, he noted some shaking. He denies fevers, cough above baseline, abdominal pain, dysuria, and diarrhea. His daughter did record a temperature of 100 at home per report. Upon arrival in the ED patient has noted to be mildly hypoxic (85%) on baseline 3.5 L/min O2. Work-up thus far notable for leukocytosis, hyponatremia, possible RLL pneumonia on CXR, and elevated D-dimer. Patient is being admitted for further care and diagnostic work-up. History Information - Allergies/Home Medication List Allergies/Adverse Reactions: No Known Allergies Allergy (Verified 06/02/17 16:29) Home Medications: Lorazepam mg PO PRN 05/30/17 [Last Taken 06/04/17] Advil 2 tab PO Q4H 06/02/17 [Last Taken 06/04/17] Arnica Flower Extract PO DAILY 06/02/17 [Last Taken 06/04/17] Tylenol 1 tab PO Q4H 06/02/17 [Last Taken 06/04/17] I have personally reviewed and updated: family history, medical history - Past Medical History pulmonary embolism (diagnosed 1 year ago, off of AC) Additional medical history: severe bronchiectasis. ANGELA. Chronic hypoxic respiratory failure on 2L. chronic dysphagia. BPH - Surgical History Additional surgical history: laser prostate surgery - Family History Positive for: cancer (father of kidney cancer) - Social History Smoking Status: Former smoker Additional social history: , retired from [employer] Review of Systems Review of Systems: ROS: 10pt was reviewed & negative except for what was stated in HPI & below Physical Exam Physical Exam: Temp Pulse Resp BP Pulse Ox 36.6 C 88 20 125/82 H 98 06/09/17 22:17 06/09/17 22:17 06/09/17 22:17 06/09/17 22:17 06/09/17 22:17 Constitutional: not in pain, chronically ill appearing Eyes: PERRL, EOMI Ears, Nose, Mouth, Throat: moist mucous membranes, no oral mucosal ulcers Cardiovascular: regular rate and rhythym, no murmur, rub, or gallop Respiratory: no respiratory distress, inspiratory crackles (RLL) Gastrointestinal: normoactive bowel sounds, soft, non-tender abdomen Skin: warm, normal color Musculoskeletal: full muscle strength, no muscle tenderness Neurologic: AAOx3, CN II-XII Intact Psychiatric: interacting appropriately, not anxious Lab Data & Imaging Review 06/09/17 20:47 06/09/17 20:47 WBC 13.81 10^3/uL (3.80-9.50) H 06/09/17 20:47 RBC 4.23 10^6/uL (4.40-6.38) L 06/09/17 20:47 Hgb 13.4 g/dL (13.7-17.5) L 06/09/17 20:47 Hct 38.0 % (40.0-51.0) L 06/09/17 20:47 MCV 89.8 fL (81.5-99.8) 06/09/17 20:47 MCH 31.7 pg (27.9-34.1) 06/09/17 20:47 MCHC 35.3 g/dL (32.4-36.7) 06/09/17 20:47 RDW 15.0 % (11.5-15.2) 06/09/17 20:47 Plt Count 315 10^3/uL (150-400) 06/09/17 20:47 MPV 9.7 fL (8.7-11.7) 06/09/17 20:47 Neut % (Auto) 85.0 % (39.3-74.2) H 06/09/17 20:47 Lymph % (Auto) 2.0 % (15.0-45.0) L 06/09/17 20:47 [place] % (Auto) 9.2 % (4.5-13.0) 06/09/17 20:47 Eos % (Auto) 2.5 % (0.6-7.6) 06/09/17 20:47 Baso % (Auto) 0.4 % (0.3-1.7) 06/09/17 20:47 Nucleat RBC Rel Count 0.0 % (0.0-0.2) 06/09/17 20:47 Absolute Neuts (auto) 11.72 10^3/uL (1.70-6.50) H 06/09/17 20:47 Absolute Lymphs (auto) 0.28 10^3/uL (1.00-3.00) L 06/09/17 20:47 Absolute Monos (auto) 1.27 10^3/uL (0.30-0.80) H 06/09/17 20:47 Absolute Eos (auto) 0.35 10^3/uL (0.03-0.40) 06/09/17 20:47 Absolute Basos (auto) 0.06 10^3/uL (0.02-0.10) 06/09/17 20:47 Absolute Nucleated RBC 0.00 10^3/uL (0-0.01) 06/09/17 20:47 Immature Gran % 0.9 % (0.0-1.1) 06/09/17 20: Immature Gran # 0.13 10^3/uL (0.00-0.10) H 06/09/17 20:47 D-Dimer 1.15 ug/mLFEU (0.00-0.50) H 06/09/17 20:47 VBG Lactic Acid 1.2 mmol/L (0.7-2.1) 06/09/17 20:47 Sodium 132 mEq/L (135-145) L 06/09/17 20:47 Potassium 4.5 mEq/L (3.5-5.2) 06/09/17 20:47 Chloride 93 mEq/L (97-110) L 06/09/17 20:47 Carbon Dioxide 26 mEq/l (22-31) 06/09/17 20:47 Anion Gap 13 mEq/L (8-16) 06/09/17 20:47 BUN 11 mg/dL (7-23) 06/09/17 20:47 Creatinine 0.6 mg/dL (0.7-1.3) L 06/09/17 20:47 Estimated GFR > 60 06/09/17 20:47 Glucose 121 mg/dL (70-100) H 06/09/17 20:47 Calcium 9.2 mg/dL (8.5-10.4) 01/30/18 20:47 Troponin I < 0.012 ng/mL (0.000-0.034) 06/09/17 20:47 Nasal Influenza A PCR NEGATIVE FOR FLU A (NEGATIVE) 06/09/17 21:03 Nasal Influenza B PCR NEGATIVE FOR FLU B (NEGATIVE) 06/09/17 21:03 Imaging Review: Imaging Impressions Chest X-Ray 06/09/17 20:42 Impression: 1. Increasing patchy right basilar airspace opacities which likely represent a worsening pneumonia. 2. 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 EKG Interpretation: Positive for: normal sinsus rhythm Assessment & Plan Assessment: 81 yo M w/ CHRF, bronchiectasis, hx PE presents with weakness possibly due to infection. Plan: 1. Generalized weakness - Possibly due to infection noting leukocytosis and RLL infiltrate on CXR. However, noting mild hypoxia and elevated D-dimer, indicated to rule out pulmonary embolism as well. - CAP coverage for now, d/c if other etiology found - CTA Chest to rule out pulmonary embolism - PT/OT evaluations 2. Suspected RLL pneumonia - Diagnosis based off of low-grade fever, leukocytosis, and CXR findings. Patient denies increased cough at this time. Flu negative. - CTX/Azithro for CAP coverage - Check blood cultures, viral PCR, procalcitonin - D/C abx if other etiology found 3. CHRF - Uses 3.5 L/min O2 chronically. He was briefly hypoxic in ED but now back at baseline. Per review of chart this is due to hx of bronchiectasis and ANGELA. - IS, albuterol PRN 4. Recent vertebral compression fractures - S/p L4 and T9 kyphoplasty over the last month. Patient denies ongoing pain. 5. Hx of PE - Now off of anticoagulation, will rule out repeat VTE with CTA chest. Diet - Regular Code - Full Ppx - LMWH Dispo - Admit to observation status
[2017-06-10] MEDS ORDERED: LORazepam 0.5 MG TAB PO ONE (02:24)
[2017-06-10 06:05] LABS: PLATELET COUNT 295 10^3/uL (150-400)
[2017-06-10] MEDS ORDERED: cefTRIAXone 1 GM in STERILE WATER INJ 10 ML IV SCH (09:00)
[2017-06-10] MEDS ORDERED: AZITHROMYCIN 250 MG TAB PO ONE (09:00)
[2017-06-10] MEDS: ENOXAPARIN 30 MG/0.3 ML SYR SC SCH (09:07)
--- NOTE | 2017-06-10 15:11 | PCMIDPN ---
Assessment/Plan: Assessment: Right lower lobe infiltrate in chronic pulmonary disease consistent with ANGELA. Patient on ceftriaxone and azithromycin. Appears to be still doing a lot of work of breathing. I am concerned that this is more of an acute issue on top of a chronic decline. Patient has had multiple interactions with me as an outpatient about his chronic ANGELA infection. He has attempted antibiotic courses but has been intolerant of side effects and does not wish to chronically suppress is ANGELA. I believe that this will ultimately cause him life -threatening issues with respiratory failure. However at this point he wishes to only treat with antibiotics for short period of time. The azithromycin would definitely cover ANGELA. Ceftriaxone would be appropriate for other community-acquired pneumonia pathogens. At this point we continue both antibiotics to follow for clinical improvement. Plan: 1. Continue both ceftriaxone and azithromycin. 2. Follow clinical course. 06/10/17 15:58 Subjective: Patient is sitting in his bed in his hospital room. He appears to have lost weight since I last saw him. He is having increased work of breathing. No cough. No fevers or chills. Objective: Ceftriaxone # 1 Azithromycin # 1 Vital Signs Temp Pulse Resp BP Pulse Ox 36.6 C 76 18 110/48 L 92 06/10/17 10:58 06/10/17 10:58 06/10/17 10:58 06/10/17 10:58 06/10/17 10:58 Microbiology 06/10/17 01:30 Respiratory Panel (PCR) - Final Nasal, Sinus - Swab No Organism Detected Laboratory Results 06/10/17 05:00 06/10/17 05:16 06/09/17 06/10/17 06/11/17 05:59 05:59 05:59 Intake Total 2000 Output Total 275 Balance 1725 - Physical Exam General Appearance: WD/WN, alert, apparent distress (Mild respiratory distress) , cachetic Respiratory: lungs clear, respiratory distress (Mild), No normal breath sounds ( Distant), No wheezing Cardiac/Chest: regular rate, rhythm, No tachycardia Skin: normal color, warm/dry, No rash Neuro/Psych: alert, normal mood/affect, oriented x 3 ICD10 Worksheet Patient Problems: Problems Problem Status Onset Bronchiectasis Acute Pneumonia Acute Bronchiectasis Acute Dyspnea Acute Fracture, lumbar vertebra, compression Acute Hyponatremia Acute Hypoxia Acute Leukocytosis Acute Mycobacterium avium-intracellulare complex Acute Urinary tract infection Acute
[2017-06-10] MEDS ORDERED: IBUPROFEN 200 MG TAB PO PRN (15:56)
--- NOTE | 2017-06-10 16:07 | HOSPPROG ---
Hospitalist Progress Note Assessment/Plan: Assessment: 81 yo M p/w suspected ANGELA pneumonia Plan: # ANGELA RLL pneumonia. POA, acute, new problem to this provider, further w/u indicated. Significant RLL CT findings (personally interpreted), d/w Dr. Dejesus and he describes long hx of patient's ANGELA diagnosis but patient has consistently declined treatment for it in the past, only wants treatment when it results in acute PNA and is debilitating - cont on D#2/5 of Sheyla, DC CTX - cont to monitor WBC for improvement, as well and functional improvement - patient remains significantly weak, lethargic, and with delayed cognitive processing - patient unsafe to discharge home at this time, continue working w/ PT/OT, will meet w/ patient/ tomorrow AM to determine safest plan # Chronic hypoxic respiratory failure. Uses 3.5 L/min O2 chronically. He was briefly hypoxic in ED but now back at baseline. Per review of chart this is due to hx of bronchiectasis and ANGELA - IS, albuterol PRN # Recent vertebral compression fractures. S/p L4 and T9 kyphoplasty over the last month. Patient denies ongoing pain. # Suspected mild cognitive impairment. Patient w/ challenges processing and retaining information today, cont to monitor, will communicate to patient's PCP Diet - Regular Code - Full Ppx - LMWH Dispo - Upgrade to inpatient admission status re: anticipated LOS > 48hrs for reasonable medical necessity including ANGELA pneumonia w/ resultant functional decline, requiring ongoing IV abx, ID assessments, and therapy modality evals Subjective: patient reports lethargy, doesn't recall what Dr. Dejesus told him earlier Objective: Vital Signs Temp Pulse Resp BP Pulse Ox 36.4 C 68 16 107/46 L 98 06/10/17 15:28 06/10/17 15:28 06/10/17 15:28 06/10/17 15:28 06/10/17 15:28 Microbiology 06/10/17 01:30 Respiratory Panel (PCR) - Final Nasal, Sinus - Swab No Organism Detected Laboratory Results 06/10/17 05:00 06/10/17 05:16 06/09/17 06/10/17 06/11/17 05:59 05:59 05:59 Intake Total 2000 Output Total 275 Balance 1725 - Physical Exam Constitutional: no apparent distress, not in pain, chronically ill appearing, cachectic, No uncomfortable Ears, Nose, Mouth, Throat: moist mucous membranes, hearing normal, ears appear normal, no oral mucosal ulcers Cardiovascular: regular rate and rhythym, no murmur, rub, or gallop, No edema Respiratory: reduced air movement (R base), rhonchi (R post segment), No expiratory wheeze, No bronchial breath sounds, No respiratory distress Gastrointestinal: normoactive bowel sounds, soft, non-tender abdomen, no palpable masses Neurologic: AAOx3, sensation intact bilaterally, No facial droop Psychiatric: not anxious, poor memory, other (concentration 7/7, naming 3/3, seemingly impaired processing and asking repetitive questions), No agitated ICD10 Worksheet Patient Problems: Problems Problem Status Onset Leukocytosis Acute Dyspnea Acute Hyponatremia Acute Bronchiectasis Acute Urinary tract infection Acute Bronchiectasis Acute Mycobacterium avium-intracellulare complex Acute Hypoxia Acute Fracture, lumbar vertebra, compression Acute Pneumonia Acute
--- NOTE | 2017-06-10 16:14 | PDMN ---
Medical Necessity Medical necessity: ongoing med nec ongoing tx of ANGELA pna with resultant functional decline, req ongoing IV abx, ID assessments and therapy > 2 midnights
--- NOTE | 2017-06-10 16:31 | ASMTCMCOM ---
CM Note CM Note Notes: Pt lives with his at the [facility], he also has 01/12 care with [facility]. Per OT, may be interested in other private pay agencies. CM called and left a message. Therapies still pending Date Signed: 06/10/2017 04:30 PM Electronically Signed By:Vesna Aldana RN
[2017-06-11 05:46] LABS: PLATELET COUNT 245 10^3/uL (150-400)
[2017-06-11] MEDS ORDERED: AZITHROMYCIN IV 500 MG in D5W 250 ML IV SCH (09:00)
[2017-06-11] MEDS ORDERED: Herbals/Supplements -Info Only PO SCH (09:00)
[2017-06-11] MEDS ORDERED: POLYETHYLENE GLYCOL 3350 17 GM PKT PO SCH (09:00)
[2017-06-11] MEDS ORDERED: AZITHROMYCIN 250 MG TAB PO SCH (09:00)
[2017-06-11] MEDS ORDERED: Linaclotide [Linzess] 145 MCG PO SCH (09:00)
[2017-06-11] MEDS: ENOXAPARIN 30 MG/0.3 ML SYR SC SCH (10:06)
--- NOTE | 2017-06-11 13:01 | ASMTCMCOM ---
CM Note CM Note Notes: Spoke w/pt and family re; dc poc. Pt will dc home w/[facility], they will come tonight 8pm-8am and CM will arranged for skilled homecare, referral sent to [facility]. Pt still to have a cog eval with [employer]. DC Plan: Home w/24hr supervision Date Signed: 06/11/2017 01:00 PM Electronically Signed By:Vesna Aldana RN
--- NOTE | 2017-06-11 14:50 | PDIAF ---
- Diagnosis Diagnosis: ANGELA pneumonia Code Status: Full Code - Medication Management Discharge Medications: Medications to Continue on Transfer Acetaminophen [Tylenol ES 500 mg (*)] 500 mg PO Q6 PRN #0 06/02/17 [Last Taken 06/04/17] Herbals/Supplements -Info Only 1 ea PO DAILY #0 06/02/17 [Last Taken 06/04/17] Ibuprofen [Motrin (*)] 2 tab PO Q4H PRN #0 06/02/17 [Last Taken 06/04/17] Linaclotide [Linzess] 145 mcg PO DAILY 06/10/17 [Last Taken 06/09/17] Polyethylene Glycol 3350 [Miralax 17 gm (*)] 17 gm PO DAILY 06/10/17 [Last Taken 06/09/17] Azithromycin Oral Liquid [Zithromax Oral Liquid] 500 mg PO DAILY #7 dose [Last Taken Unknown] Service Supervisor Antibiotics: Azithromycin 500mg PO liquid daily Service Supervisor Antibiotic Stop Date: 06/17/17 Discharge Medications: Refer to the Discharge Home Medication list for PRN reason. PICC Care - Routine: N/A - Orders Services needed: Home Care, Registered Nurse, Master [employer] Super[employer], Physical Therapy, Occupational Therapy Home Care Face to Face: I certify that this patient was under my care and that I had the required [id number] encounter meeting the encounter requirements on the discharge day. My findings support the fact that the patient is homebound as defined in Home Care Face to Face Continued: CMS Chapter 7 Medicare Benefits Manual 30.1.1 , The condition of the patient is such that there exists a normal inability to leave home and consequently, leaving home would require a considerable and taxing effort. Isolation Type: None Oxygen: 3 LPM continuous Diet Texture: Regular Texture Diet, Thin Liquids, Meds Whole in Puree Weigh Patient: weekly Yap: Not applicable - Labs/Radiology BMP Date: 06/16/17 CBC w/diff Date: 06/16/17 Call or Fax Lab and Imaging Results to: Kish[facility] Morales [facility] - Follow Up Care Current Providers and Referrals: Davin Reynaga MD [Primary Care Provider] - As per Instructions Kyrstal Holley MD [Medical Doctor] - follow up in 1 week Davin Dejesus MD [Medical Doctor] - 3-5 days
--- NOTE | 2017-06-11 15:05 | ASMTCMCOM ---
CM Note CM Note Notes: [facility] unable to take pt, CM set pt up with [facility], [facility] notified, pt needs: RN/PT/OT/SW Date Signed: 06/11/2017 03:05 PM Electronically Signed By:Vesna Aldana RN
[2017-06-11 15:47] VITALS: BP 126/72; PULSE 67; RESP 18; TEMP 97.2; O2SAT 95
--- NOTE | 2017-06-11 16:35 | ASMTLACE ---
LACE Length of stay for Answers: 3 days current admission Acuity / Level of Answers: Yes Care: Did the patient have an inpatient admission? Comorbidities - select Answers: Chronic pulmonary disease all that apply # of Emergency department Answers: 1-2 visits in the last 6 months Score: 9 Date Signed: 06/11/2017 04:34 PM Electronically Signed By:Muriel Chavez RN
--- NOTE | 2017-06-11 16:57 | PDDCSUM ---
Discharge Summary Discharge Summary: DISCHARGE SUMMARY FOLLOW-UP ITEMS: Reassess and reiterate need for ongoing suppressive antibiotics for ANGELA Reassess outpatient cognitive status with mini-mental status exam at primary care appointment Reassess home needs with home care social services DATE OF ADMISSION: 06/09/2017 DATE OF DISCHARGE: 06/11/2017 DISCHARGE DIAGNOSES: 1. ANGELA right lower lobe pneumonia present on admission 2. Chronic hypoxic respiratory failure 3. Recent vertebral compression fractures 4. Suspected mild cognitive impairment CONSULTATIONS: Infectious Disease PROCEDURES / IMAGING: Chest x-ray demonstrating right lower lobe infiltrate CHIEF COMPLAINT: Acute fatigue, shortness of breath SUBJECTIVE: Patient reports he is feeling well, he is requesting that he be discharged home today, he believes he will be safe at home PHYSICAL EXAM ON DISCHARGE: Systolic blood pressure is 110-120, heart rate 60, afebrile overnight, satting well on 3 L nasal cannula, alert awake oriented x3 patient is thin and cachectic appearing, his thought process is linear but he does perseverate on certain issues, specifically regarding what he perceives as side effects of previous ANGELA antibiotics, he has a flat affect but does engage in the conversation LABS ON DISCHARGE: Serum sodium 132, white blood count 67153, hemoglobin 11.3, creatinine 0.6, potassium 3.8 HOSPITAL COURSE BY PROBLEM: The patient presented with symptomatic fatigue and shortness of breath secondary to an ANGELA right lower lobe pneumonia which was present on admission. Patient is high risk for these pneumonias given his bronchiectasis and history of ANGELA, which has been untreated per patient's desire to not be on antibiotics as an outpatient. He believes that he had severe side effects from the triple therapy, and he has refused to utilize antibiotics since that time. The patient has been losing weight and wasting away, most likely secondary to untreated ANGELA, and I consulted with his primary infectious disease physician, Dr. Davin Dejesus. Dr. Dejesus recommended that we treat this acute pneumonia with 500 mg of azithromycin, and the patient is amenable to remaining on the azithromycin for another week until he follows up with Dr. Davin Dejeuss in the outpatient setting to discuss any possible alternative suppressive antibiotic regimens. The patient symptomatically improved during this hospitalization, with increased energy, normalizing white blood cell count, and engagement with physical therapy. He remained on his home level of supplemental oxygen and his pain was well managed. He received physical therapy, occupational therapy, cognitive therapy evaluations, and the recommendation was for penitentiary facility placement. Patient is adamant that he does not want to go to a penitentiary facility and he in his family believe that he will recover best at home with increasing his private duty support as well as home care services. Our patient case coordinator worked diligently with the patient and his family to accomplish this, and arrangements have been made for continuous care from 8:00 a.m. to 8:00 p.m., with additional home care services as well. The patient will also have the help of a social services through his home care, to reassess whether the patient is progressing well. His primary care physician Dr. Krystal Holley has been included in the communication through Dr. Dejesus, and the patient is also utilizing the services of Dr. Davin Reynaga to help coordinate his complex care. I would recommend that as the patient continues to receive outpatient therapies as well as Infectious Disease consultation, we continue to monitor his cognitive status and perform a mini-mental status exam formally when he is perceived to be at his baseline, as I suspect that there is at least some degree of mild cognitive impairment. The patient seems to be compensating well as he was most likely a very high functioning individual prior to his recent illness, which has set him back, but I am not optimistic that his cognitive status will substantially improved from where it is now. I have also advised against the use of regular benzodiazepines given their cognitive impairing side effects as well as affects on mobility. DISCHARGE MEDICATIONS: Please see official discharge medication reconciliation sheet in chart , continue home medications with the addition of azithromycin liquid 500 mg once daily for the next 7 days. DISCHARGE INSTRUCTIONS: Please schedule follow up with Dr. Davin Dejesus for early next week, Dr. Krystal Holley thereafter. TIME SPENT: Greater than 65 minutes were spent on direct patient care, as well as discharge planning and preparation.
--- NOTE | 2017-06-12 17:37 | ASDISCHSUM ---
Discharge Information Plan Status:Home with Home Health Medically Cleared to Leave: Discharge Date:06/11/2017 06:58 PM CM D/C Disposition:Home Health Service ADT D/C Disposition:Home Health Service Projected Discharge Date:06/11/2017 11:00 AM Transportation at D/C:Family Discharge Delay Reason: Follow-Up Date:06/11/2017 11:00 AM Discharge Slot: Final Diagnosis: Placement Information Referral Type:*Home Health Care Services Referral ID:[id number] Provider Name:[facility] Address 1:[address] Address 2: City:[place] Selection Factors: State:[place] Patient Contact Information Contact Name:ELAINE Relationship: Address:[address] Work Phone: City:[place] Alternate Phone: State/Zip Code:[place] [address] Email: Financial Information Financial Class:Medicare Advantage Plans Primary Plan Desc:[facility] ADVANTAGE PLANS Primary Plan Number:[id number] Secondary Plan Desc: Secondary Plan Number: Assessment Information [facility] CM Progress Note CM Note CM Note Notes: Pt lives with his at the [facility], he also has 24/7 care with [facility]. Per OT, may be interested in other private pay agencies. CM called and left a message. Therapies still pending Date Signed: 06/10/2017 04:30 PM Electronically Signed By:Vesna Aldana RN [facility] CM Progress Note CM Note CM Note Notes: Spoke w/pt and family re; dc poc. Pt will dc home w/[facility], [facility] and CM will arranged for skilled homecare, referral sent to [facility]. Pt still to have a cog eval with [employer]. DC Plan: Home w/24hr supervision Date Signed: 06/11/2017 01:00 PM Electronically Signed By:Vesna Aldana RN [facility] CM Progress Note CM Note CM Note Notes: [facility] unable to take pt, CM set pt up with [facility], [place] notified, pt needs: RN/PT/OT/SW Date Signed: 06/11/2017 03:05 PM Electronically Signed By:Vesna Aldana RN LACE LACE Length of stay for Answers: 3 days current admission Acuity / Level of Answers: Yes Care: Did the patient have an inpatient admission? Comorbidities - select Answers: Chronic pulmonary disease all that apply # of Emergency department Answers: 1-2 visits in the last 6 months Score: 9 Date Signed: 06/11/2017 04:34 PM Electronically Signed By:Muriel Chavez RN Intervention Information Intervention Type:*ORR-Signed Date of Service:06/10/2017 10:01 AM Patient Type:Observation Staff Member:Bekah Mahmood Hours: Discipline: Severity: Comment: Intervention Type:*IM-Signed Date of Service:06/11/2017 04:05 PM Patient Type:Inpatient Staff Member:Bekah Mahmood Hours: Discipline: Severity: Comment:
== END 2017-06-11 18:58 | disposition home health service (06) | DRG 190 ==
LOC: F3E 06-10 00:04 → OBSVTOIN 06-10 16:00
PROVIDERS: ADMIT Student in an Organized Health Care Education/Training Program; ATTEND Internal Medicine
DX: J47.0 Bronchiectasis with acute lower respiratory infection (principal); A31.0 Pulmonary mycobacterial infection; J96.11 Chronic respiratory failure with hypoxia; Z99.81 Dependence on supplemental oxygen; E43 Unspecified severe protein-calorie malnutrition; G31.84 Mild cognitive impairment of uncertain or unknown etiology; Z86.711 Personal history of pulmonary embolism; Z87.311 Personal history of (healed) other pathological fracture
CPT/HCPCS: 92523-GN; 92610-GN; 96365; 97162-GP; 97166-GO; 97530-GO; 97535-GO; G0378; G8978-GP-CK; G8979-GP-CJ; G8987-GO-CJ; G8988-GO-CI; G8996-GN-CI; G8997-GN-CI; G8998-GN-CI; G9168-GN-CK; G9169-GN-CJ; J0456; J0696; J1650; J1956; Q9967

== ENCOUNTER 2017-06-15 11:23 | Emergency (ER) | payer OTHER ==
--- NOTE | 2017-06-15 11:49 | EDPHY ---
H & P Time Seen by Provider: 06/15/17 11:36 HPI/ROS: CHIEF COMPLAINT: Right lateral rib pain HISTORY OF PRESENT ILLNESS: Patient is an 81-year-old male who presents emergency department with right lateral rib pain and back pain. Patient has history of bronchiectasis. He was recently diagnosed with pneumonia subsequently had a fall. This resulted in him having a kyphoplasty. He has had ongoing right rib pain. He was sent to the emergency department by Dr. Reynaga for imaging of his thoracic and lumbar spine. Patient states pain is been chronic and persistent. It is moderate. It is focused on the right lateral ribs. He has had no new shortness of breath or oxygen requirement. No fevers or chills. No leg pain or swelling. REVIEW OF SYSTEMS: My complete review of systems is negative except as mentioned in the HPI. Past Medical/Surgical History: Includes bronchiectasis, pneumonia, constipation, chronic pain Past surgical history: Includes appendectomy, kyphoplasty, prostatic procedure Social history: Patient is here with his . Smoking Status: Former smoker Physical Exam: Vitals noted GENERAL: No acute distress, alert. Wearing nasal cannula. HEENT: Eyes normal to inspection, normal pharynx, no signs of dehydration. NECK: [No thyromegaly, no lymphadenopathy, supple. RESPIRATORY: Clear to auscultation bilaterally, no rales, rhonchi or wheezing. CVS: Regular rate and rhythm, no rubs, murmurs, or gallops. No chest wall tenderness to palpation. No palpable mass or crepitus. ABDOMEN: Soft, nontender, nondistended, no organomegaly. Benign. BACK: Normal to inspection, no CVA tenderness. No spinal tenderness. No step- off. SKIN: Normal color, no rash, warm, dry. No pallor. EXTREMITIES: No pedal edema, no calf tenderness, no Homans sign or cords, no joint swelling. NEURO/PSYCH: Alert and oriented x3, normal mood and affect, normal motor sensory exam. No obvious cranial nerve deficit. Constitutional: Initial Vital Signs Heart Rate 72 06/15/17 11:30 Respiratory Rate 18 06/15/17 11:30 Blood Pressure 113/67 06/15/17 11:30 O2 Sat (%) 96 06/15/17 11:30 O2 Delivery Mode Nasal Cannula O2 (L/minute) 3 Allergies/Adverse Reactions: No Known Allergies Allergy (Verified 06/15/17 11:34) Home Medications: Medication Instructions Recorded Acetaminophen [Tylenol ES 500 mg 500 mg PO Q6 PRN #0 06/02/17 (*)] Herbals/Supplements -Info Only 1 ea PO DAILY #0 06/02/17 Ibuprofen [Motrin (*)] 2 tab PO Q4H PRN #0 06/02/17 Linaclotide [Linzess] 145 mcg PO DAILY 06/10/17 Polyethylene Glycol 3350 [Miralax 17 gm PO DAILY 06/10/17 17 gm (*)] Azithromycin Oral Liquid 500 mg PO DAILY #7 dose 06/11/17 [Zithromax Oral Liquid] Medical Decision Making - Diagnostics Imaging Results: Imaging Impressions Lumbar Spine CT 06/15/17 11:39 Impression: 1. No acute lumbar spine fracture. 2. Intramedullary cement in subacute severe L1 and mild L4 compression fractures. Findings discussed with Emergency Department physician, Kaleigh Mcqueen on 06/15, 13:45. Chest CT 06/15/17 11:45 Impression: 1. No acute rib, sternal, or thoracic spine fracture. 2. Subacute anterior right fourth rib buckle fracture unchanged. 3. Extensive Mycobacterium avium intracellulare unchanged. 4. No pneumothorax, airspace consolidation, or effusion. Three-vessel calcified coronary plaque and hiatal hernia are unchanged. Findings discussed with Emergency Department physician, Kaleigh Mcqueen on 06/15, 13:45. ED Course/Re-evaluation: I discussed the case with Dr. Reynaga prior to patient's arrival. I also discussed the case with Dr. Reynaga once the patient arrived. He fell as the patient closely. He requested the patient have a CT of his lumbar and thoracic spine. Due to the rib pain he also recommended a noncontrast CT of the chest. He states the patient has previously been worked up for pulmonary embolus. I discussed the plan with the patient. I answered all his questions. CT of the chest/thoracic spine/lumbar spine: Please refer the dictated report by Dr. Abdulaziz Mckeon. No rib fracture. No hemothorax or pneumothorax. Patient's spine appears stable and unchanged from his previous imaging. I discussed the results with the patient. I answered all his questions. We will attempt to arrange placement for the patient. He requested pain medication. He was written for morphine 4 mg IV and Zofran 4 mg IV. Patient informed the nursing staff that he did not want narcotics. He was given Toradol 30 mg IV. Previous creatinine on 06/11/2017 was normal. I discussed the plan with the patient. international project manager is working on direct placement. Please refer to her note. Differential Diagnosis: My differential includes but is not limited to fracture, dislocation, contusion , strain, pneumonia, bronchitis, PE - Data Points Medications Given: Discontinued Medications Ketorolac Tromethamine (Toradol) 30 mg IVP EDNOW ONE Stop: 06/15/17 14:34 Last Admin: 06/15/17 14:41 Dose: 30 mg Morphine Sulfate (Morphine) 4 mg IVP EDNOW ONE Stop: 06/15/17 14:14 Last Admin: 06/15/17 14:42 Dose: Not Given Ondansetron HCl (Zofran) 4 mg IVP EDNOW ONE Stop: 06/15/17 14:15 Last Admin: 06/15/17 14:42 Dose: Not Given Departure - Departure Disposition: Home, Routine, Self-Care Clinical Impression: Rib pain on right side Back pain Qualifiers: Back pain location: thoracic back pain Chronicity: acute Back pain laterality: right Qualified Code(s): M54.6 - Pain in thoracic spine Condition: Good Instructions: Back Pain (ED) Additional Instructions: Return with increasing pain, fever, vomiting or any other concerns. Referrals: Krystal Holley MD [Primary Care Provider] - 1-2 days without fail
[2017-06-15 13:26] VITALS: RESP 16
[2017-06-15] MEDS ORDERED: ONDANSETRON 4 MG/2 ML VIAL IVP ONE (14:14)
[2017-06-15] MEDS ORDERED: KETOROLAC 30 MG/1 ML SDV IVP ONE (14:33)
[2017-06-15 14:46] VITALS: O2SAT 97
[2017-06-15 17:15] VITALS: BP 148/82; PULSE 61
--- NOTE | 2017-06-15 18:10 | ASMTCMCOM ---
CM Note CM Note Notes: Pt presented to the ED for acute right lower back pain. Received a call from patient's PCP Dr. Davin Reynaga (office # [phone]), and pt's homecare RN August (with [facility] [phone]); they are both recommending patient not be discharged back home because he is now open to SNF placement. Patient had been d/c'd home (pt lives in a private home with Elo near [facility] and receives services through them as well) with [facility] RN/PT/OT/SW and additional non-skilled help through [facility], in order to provide 24/7 care. Spoke with patient and his Elo at bedside. [facility] is their current choice for SNF. Referral sent, acceptance confirmed with [facility] ([phone]). ED MD wrote admission order and pain mgmt med order. Hard copies sent w/patient. Patient transported by Elo directly to [facility]. August with [facility] updated. Rena with Dr Reynaga's office updated. CM available for further assistance if needed. Date Signed: 06/15/2017 06:09 PM Electronically Signed By:Mary Saxena RN
--- NOTE | 2017-06-15 18:12 | ASMTLACE ---
PHAN Acuity / Level of Answers: No Care: Did the patient have an inpatient admission? Comorbidities - select Answers: Chronic pulmonary disease all that apply Other # of Emergency department Answers: 5-8 visits in the last 6 months Score: 7 Date Signed: 06/15/2017 06:11 PM Electronically Signed By:Mary Saxena RN
--- NOTE | 2017-06-15 18:16 | ASDISCHSUM ---
Discharge Information Plan Status:SNF Medically Cleared to Leave: Discharge Date:06/15/2017 05:13 PM D/C Disposition:Detention Facility ADT D/C Disposition:Home, Routine, Self-Care Projected Discharge Date:06/15/2017 02:45 PM Transportation at D/C:Family Discharge Delay Reason: Follow-Up Date:06/15/2017 02:45 PM Discharge Slot: Final Diagnosis: Placement Information Referral Type:*Shelter/SNF Referral ID:[id number] Provider Name:[facility] Address 1:[address] Address 2: City:[place] Selection Factors: State:[place] Patient Contact Information Contact Name:ELAINE Relationship: Address:[address] Work Phone: City:[place] Alternate Phone: State/Zip Code:[place] [address] Email: Financial Information Financial Class:Medicare Advantage Plans Primary Plan Desc:[facility] ADVANTAGE PLANS Primary Plan Number:[id number] Secondary Plan Desc: Secondary Plan Number: Assessment Information [facility] CM Progress Note CM Note CM Note Notes: Pt presented to the ED for acute right lower back pain. Received a call from patient's PCP Dr. Davin Reynaga (office # [phone]), and pt's homecare RN August (with [facility] [phone]); they are both recommending patient not be discharged back home because he is now open to SNF placement. Patient had been d/c'd home (pt lives in a private home with Elo near [facility] and receives services through them as well) with [facility] RN/PT/OT/SW and additional non-skilled help through [facility], in order to provide 01/12 care. Spoke with patient and his Elo at bedside. [facility] is their current choice for SNF. Referral sent, acceptance confirmed with [facility] ([phone]). ED MD wrote admission order and pain mgmt med order. Hard copies sent w/patient. Patient transported by Elo directly to [facility]. August with [facility] updated. Rena with Dr Reynaga's office updated. CM available for further assistance if needed. Date Signed: 06/15/2017 06:09 PM Electronically Signed By:Mary Saxena RN LACE LACE Acuity / Level of Answers: No Care: Did the patient have an inpatient admission? Comorbidities - select Answers: Chronic pulmonary disease all that apply Other # of Emergency department Answers: 5-8 visits in the last 6 months Score: 7 Date Signed: 06/15/2017 06:11 PM Electronically Signed By:Mary Saxena RN Intervention Information
== END 2017-06-15 17:13 | disposition home or self-care (01) ==
DX: S29.9XXA Unspecified injury of thorax, initial encounter (principal); Z87.891 Personal history of nicotine dependence; W18.39XA Other fall on same level, initial encounter
CPT/HCPCS: 71250; 72128; 72131; 96374; 99285; J1885

== ENCOUNTER 2017-07-24 11:49 | Emergency (ER) | payer OTHER ==
[2017-07-24] MEDS ORDERED: METHOCARBAMOL 750 MG TAB PO ONE (12:55)
--- NOTE | 2017-07-24 13:02 | EDPHY ---
H & P Stated Complaint: right flank/rib pain Time Seen by Provider: 07/24/17 12:46 - Personal History Current Tetanus Diphtheria and Acellular Pertussis (TDAP): Unsure Tetanus Vaccine Date: UNSURE - Medical/Surgical History Hx Asthma: No Hx Chronic Respiratory Disease: Yes Hx Diabetes: No Hx Cardiac Disease: No Hx Renal Disease: No Hx Cirrhosis: No Hx Alcoholism: No Hx HIV/AIDS: No Hx Splenectomy or Spleen Trauma: No Other PMH: Chronic respiratory disease, bronchiectasis, appendectomy; constipation; green light procedure for enlarged prostate on 06/05/15. L4 repair. chronic pain - Social History Smoking Status: Former smoker Constitutional: Initial Vital Signs Temperature (C) 36.5 C 07/24/17 11:49 Heart Rate 71 07/24/17 11:49 Respiratory Rate 30 H 07/24/17 11:49 Blood Pressure 143/74 H 07/24/17 11:49 O2 Sat (%) 97 07/24/17 11:49 O2 Delivery Mode Room Air O2 (L/minute) 3 Allergies/Adverse Reactions: No Known Allergies Allergy (Verified 06/15/17 11:34) Home Medications: Medication Instructions Recorded Acetaminophen [Tylenol ES 500 mg 500 mg PO Q6 PRN #0 06/02/17 (*)] Herbals/Supplements -Info Only 1 ea PO DAILY #0 06/02/17 Ibuprofen [Motrin (*)] 200 tab PO Q4H PRN #0 06/02/17 Linaclotide [Linzess] 145 mcg PO DAILY 06/10/17 Polyethylene Glycol 3350 [Miralax 17 gm PO DAILY 06/10/17 17 gm (*)] Medical Decision Making ED Course/Re-evaluation: CHIEF COMPLAINT: Back pain HISTORY OF PRESENT ILLNESS: This patient is an 81 year old male with a history of bronchiectasis, L4 and T9 kyphoplasty arriving via EMS with his complaining of left-sided back and rib pain. He has been treated recently for compression fractures secondary to a fall. He woke this morning "in intense sharp pain". He recently returned to his home from rehabilitation, and discontinued taking Robaxin. His daughter believes his discomfort may be due to the cessation of Robaxin. Patient denies any numbness or tingling or any focal weakness. REVIEW OF SYSTEMS: A 10 point review of systems was performed and is negative with the exception of the elements mentioned in the history of present illness. PHYSICAL EXAM: HR, BP, O2 Sat, RR. Temp noted General Appearance: Alert, well hydrated, appropriate, and non-toxic appearing. Head: Atraumatic without scalp tenderness or obvious injury Eyes: Pupils equal, round, reactive to light and accommodation, EOMI, no trauma , no injection. Ears: Clear bilaterally, no perforation, normal landmarks Nose: Atraumatic, no rhinorrhea, clear. Throat: There is no erythema or exudates, no lesions, normal tonsils, mucus membranes moist. Neck: Supple, nontender, no lymphadenopathy. Respiratory: No retractions, no distress, no wheezes, and no accessory muscle use. Lungs are clear to auscultation bilaterally. Cardiovascular: Regular rate and rhythm, no murmurs, rubs, or gallops. Bilateral carotid, radial, dorsalis pedis, and posterior tibial pulses intact. Good capillary refill all extremities. Gastrointestinal: Abdomen is soft, nontender, non-distended, no masses, no rebound, no guarding, no peritoneal signs. Musculoskeletal: Left back and rib pain with movement. Normal active ROM of all extremities, atraumatic. Neurological: Alert, appropriate, and interactive. The patient has normal DTRs and non-focal cranial nerves, motor, sensory, and cerebellar exam. Skin: No rashes, good turgor, no nodules on palpation. Past medical history: Chronic respiratory disease. Bronchiectasis. Constipation. Chronic pain Past surgical history: Appendectomy. Green light procedure for enlarged prostate on 06/05/15. L4 repair Family history: Noncontributory. Social history: at bedside. Followed by me, Dr. Reynaga. . Lives in [place]. DIFFERENTIAL DIAGNOSIS: The differential diagnosis for the patient's back pain included but was not limited to musculoskeletal pain, epidural abscess, herniated disk, spinal fracture, and intra-abdominal causes including urinary system. MEDICAL DECISION MAKIN yo male with history of chronic back pain presents with left back and rib pain. During my exam, patient is eating a sandwich and does not appear to be in acute pain. He states he would prefer to go home because "I have got to have a more comfortable bed". Plan to administer the patient's Robaxin. He will continue to take this medication at home as prescribed. Discussed imaging to r/ o shifting of kyphoplasty or other new trauma, but the patient denies recent falls or changes. He would prefer to go home and manage his pain with his regular medication and follow up outpatient. Return precautions discussed. He is comfortable with this plan. - Data Points Medications Given: Discontinued Medications Methocarbamol (Robaxin) 750 mg PO EDNOW ONE Stop: 07/24/17 12:56 Last Admin: 07/24/17 12:57 Dose: 750 mg Departure - Departure Disposition: Home, Routine, Self-Care Clinical Impression: Back pain Qualifiers: Back pain location: low back pain Chronicity: chronic Back pain laterality: left Sciatica presence: without sciatica Qualified Code(s): M54.5 - Low back pain Condition: Good Instructions: Back Pain (ED) Additional Instructions: 1. Take Robaxin once daily as prescribed. 2. Follow up with Dr. Reynaga next week. 3. Return to the emergency department for fever, worsening pain, or other worsening of condition. Referrals: Davin Reynaga MD [Emergency Provider] - As per Instructions Juan Vance MD [[facility] [place]] - As per Instructions Report Scribed for: Davin Reynaga Report Scribed by: Ludivina Mendez Date of Report: 07/24/17 Time of Report: 15:02
[2017-07-24 13:09] VITALS: BP 130/85; PULSE 85; RESP 18; TEMP 98.2; O2SAT 95
--- NOTE | 2017-07-24 17:54 | ASMTCMCOM ---
CM Note CM Note Notes: Pt seen in the Emergency Department earlier today for pain secondary to multiple compression fractures. Spoke with Dr. Reynaga - pt was discharged home with [facility] ([facility]) and [facility] 24 hr private duty services. This afternoon, the pt's family contacted Dr. Reynaga wishing to have pt admitted to [facility] for additional care. Call received from ELLEN Granda with [facility], per August, pt in need of additional services. Kalee feels pt should come the hospital for evaluation and treatment first; family and Dr. Reynaga suggesting direct admit to [facility]. Call placed to Katt, Licensed Practical Nurse Instructor at [facility] . Per Katt, unsure when pt was last discharged from [facility]. Katt to call her Financial Data Analyst to verify dates of last admission/discharge, Medicare benefits, need for 3 midnight stay in hospital, bed availability, etc and to call CM with an update. Several calls placed to Katt after no updates received. Left three voice messages. Multiple calls received from Kalee, ELLEN with [facility] requesting updates. Updates provided. Per Kalee, pt's family wishing to have pt re-admitted to hospital given worsening pain. Pt to arrive via EMS. Update provided to Dr. Reynaga. Late shift call received from Katt at [facility]. Per Katt, "all pt information has to be verified with the [facility] in [place], [place]." Katt unsure that pt can be admitted tonight. Katt said [facility] will gladly accept pt once information has been verified. Katt instructed to call ED CM on Thursday07/25/17 to locate pt and to assist with coordinating discharge. Additional updates provided to Omar clinical lead ELLEN and Dr. Reynaga. CM available for any further needs or concerns. Date Signed: 07/24/2017 05:53 PM Electronically Signed By:Ml Trinidad RN
== END 2017-07-24 13:29 | disposition home or self-care (01) ==
LOC: EDUNIT#
DX: M54.5 Low back pain (principal); Z87.891 Personal history of nicotine dependence

== ENCOUNTER 2017-07-24 18:19 | Observation (INO) | payer OTHER ==
--- NOTE | 2017-07-24 18:15 | EDPHY ---
H & P Time Seen by Provider: 07/24/17 18:24 Constitutional: Initial Vital Signs Temperature (C) 36.7 C 07/24/17 18:30 Heart Rate 97 07/24/17 18:30 Respiratory Rate 16 07/24/17 18:30 Blood Pressure 148/74 H 07/24/17 18:30 O2 Sat (%) 72 L 07/24/17 18:30 O2 Delivery Mode Room Air Allergies/Adverse Reactions: No Known Allergies Allergy (Verified 06/15/17 11:34) Home Medications: Medication Instructions Recorded Acetaminophen [Tylenol ES 500 mg 500 mg PO Q6 PRN #0 06/02/17 (*)] Herbals/Supplements -Info Only 1 ea PO DAILY #0 06/02/17 Ibuprofen [Motrin (*)] 200 tab PO Q4H PRN #0 06/02/17 Linaclotide [Linzess] 145 mcg PO DAILY 06/10/17 Polyethylene Glycol 3350 [Miralax 17 gm PO DAILY 06/10/17 17 gm (*)] Medical Decision Making ED Course/Re-evaluation: CHIEF COMPLAINT: Back pain HISTORY OF PRESENT ILLNESS: This patient is an 81 year old male with a history of bronchiectasis, L4 and T9 kyphoplasty arriving via EMS with his complaining of persistent back pain. He was seen earlier today for similar symptoms. He went home to take Robaxin, but his symptoms did not resolve. He has been treated recently for compression fractures secondary to a fall. See chart earlier today for further details. REVIEW OF SYSTEMS: A 10 point review of systems was performed and is negative with the exception of the elements mentioned in the history of present illness. PHYSICAL EXAM: HR, BP, O2 Sat, RR. Temp noted General Appearance: Alert, well hydrated, appropriate, and non-toxic appearing. Head: Atraumatic without scalp tenderness or obvious injury Eyes: Pupils equal, round, reactive to light and accommodation, EOMI, no trauma , no injection. Ears: Clear bilaterally, no perforation, normal landmarks Nose: Atraumatic, no rhinorrhea, clear. Throat: There is no erythema or exudates, no lesions, normal tonsils, mucus membranes moist. Neck: Supple, 2+ carotid upstroke, nontender, no lymphadenopathy. Respiratory: No retractions, no distress, no wheezes, and no accessory muscle use. Lungs are clear to auscultation bilaterally. Cardiovascular: Regular rate and rhythm, no murmurs, rubs, or gallops. Bilateral carotid, radial, dorsalis pedis, and posterior tibial pulses intact. Good capillary refill all extremities. Gastrointestinal: Abdomen is soft, nontender, non-distended, no masses, no rebound, no guarding, no peritoneal signs. Musculoskeletal: Pain to left back and ribs, especially with movement. Normal active ROM of all extremities, atraumatic. Neurological: Alert, appropriate, and interactive. The patient has normal DTRs and non-focal cranial nerves, motor, sensory, and cerebellar exam. Skin: No rashes, good turgor, no nodules on palpation. Past medical history: Chronic respiratory disease. Bronchiectasis. Constipation. Chronic pain Past surgical history: Appendectomy. Green light procedure for enlarged prostate on 06/05/15. L4 repair Family history: Noncontributory. Social history: at bedside. Followed by [place], Dr. Reynaga. . Lives in [place]. DIFFERENTIAL DIAGNOSIS: The differential diagnosis for the patient's back pain included but was not limited to musculo-skeletal pain, epidural abscess, herniated disk, spinal fracture, and intra-abdominal causes including urinary system. MEDICAL DECISION MAKIN81 y/o male returns to the emergency department with back pain unresolved by Slava. Plan to admit. Plan for labs including CBC, chemistries. Plan for CT chest and CT thoracic spine for further evaluation. 18:29 Dr. Sparks accepts admission for intractable back pain. 18:39 Discussed admission with the patient. Plan to transfer to floor and work on placement at [facility] to readmit the patient for pain management. Patient declines imaging at this time. Plan to admit as above. - Data Points Laboratory Results: Laboratory Results 07/24/17 18:30 07/24/17 07/24/17 18:30 18:30 WBC 16.28 10^3/uL H 10^3/uL (3.80-9.50) RBC 4.42 10^6/uL 10^6/uL (4.40-6.38) Hgb 14.3 g/dL g/dL (13.7-17.5) Hct 43.1 % % (40.0-51.0) MCV 97.5 fL fL (81.5-99.8) MCH 32.4 pg pg (27.9-34.1) MCHC 33.2 g/dL g/dL (32.4-36.7) RDW 16.7 % H % (11.5-15.2) Plt Count 445 10^3/uL H 10^3/uL (150-400) MPV 10.0 fL fL (8.7-11.7) Neut % (Auto) 83.1 % H % (39.3-74.2) Lymph % (Auto) 9.2 % L % (15.0-45.0) Creek % (Auto) 6.6 % % (4.5-13.0) Eos % (Auto) 0.1 % L % (0.6-7.6) Baso % (Auto) 0.3 % % (0.3-1.7) Nucleat RBC Rel Count 0.0 % % (0.0-0.2) Absolute Neuts (auto) 13.51 10^3/uL H 10^3/uL (1.70-6.50) Absolute Lymphs (auto) 1.50 10^3/uL 10^3/uL (1.00-3.00) Absolute Monos (auto) 1.08 10^3/uL H 10^3/uL (0.30-0.80) Absolute Eos (auto) 0.02 10^3/uL L 10^3/uL (0.03-0.40) Absolute Basos (auto) 0.05 10^3/uL 10^3/uL (0.02-0.10) Absolute Nucleated RBC 0.00 10^3/uL 10^3/uL (0-0.01) Immature Gran % 0.7 % % (0.0-1.1) Immature Gran # 0.12 10^3/uL H 10^3/uL (0.00-0.10) Sodium Pending Potassium Pending Chloride Pending Carbon Dioxide Pending Anion Gap Pending BUN Pending Creatinine Pending Estimated GFR Pending Glucose Pending Calcium Pending Departure - Departure Disposition: [facility] Inpatient Acute Clinical Impression: Back pain Qualifiers: Back pain location: low back pain Chronicity: chronic Back pain laterality: left Sciatica presence: without sciatica Qualified Code(s): M54.5 - Low back pain Condition: Good Report Scribed for: Davin Reynaga Report Scribed by: Ludivina Mendez Date of Report: 07/24/17 Time of Report: 18:24
[2017-07-24 18:52] LABS: PLATELET COUNT 445 10^3/uL (150-400)
[2017-07-24] MEDS ORDERED: ONDANSETRON 4 MG/2 ML VIAL IVP PRN (19:55)
[2017-07-24] MEDS ORDERED: HYDROmorphone HCL/NS 0.5 MG/ML SYR IVP PRN (19:55)
[2017-07-24] MEDS ORDERED: oxyCODONE IR 5 MG TAB PO PRN (19:55)
[2017-07-24] MEDS ORDERED: ONDANSETRON DISINTEGRATING 4 MG TAB PO PRN (19:55)
--- NOTE | 2017-07-24 20:47 | GHP ---
[f rep st] HISTORY AND PHYSICAL DATE OF ADMISSION: 07/24/2017 CHIEF COMPLAINT: Back pain. HISTORY OF PRESENT ILLNESS: This is an 81-year-old man with a recent fall with multiple compression fractures, status post kyphoplasties, who presents with acute back pain. He had recently been admitt ed here for pneumonia (he does have chronic ANGELA), discharged to [facility]. He says after that he was doing well. He was ambulating. He had an acute episode of back pain yesterday morning. He describes it as bandlike across his lower back. He is not really focal. He does not have really any focal tenderness over vertebrae. It is worse with moving. He has no numbness or tingling in his le gs with bowel and bladder normal. He is quite resistant to any additional workup when I am seeing jade tripp. I offered him an MRI, which he refused. He would like to do the least possible. He did finally consent to a plain film of his lumbar spine. He has chronic cough. He has had no fevers at home. PAST MEDICAL/SURGICAL HISTORY: 1. ANGELA. 2. Chronic respiratory failure on oxygen continuously. 3. Recent kyphoplasty. MEDICATIONS: Please see medication reconciliation. ALLERGIES: No known drug allergies. SOCIAL HISTORY: He lives at the [facility]. Does not drink or smoke. FAMILY HISTORY: Reviewed and noncontributory. REVIEW OF SYSTEMS: A 10-point review of systems is conducted and is negative except per HPI. PHYSICAL EXAMINATION: VITAL SIGNS: Blood pressure 135/72, heart rate 85, respiration rate is 16, sa turating 94% on 4 L. Temperature is 36.7. GENERAL: The patient is a pleasant man. He is resting. He appears quite rigid and uncomfortable. HEENT: Shows him to be normocephalic, atraumatic. CARDI OVASCULAR: Regular rate and rhythm. No murmurs, rubs, or gallops. PULMONARY: Lungs clear to auscu ltation bilaterally. ABDOMEN: Soft, nontender, nondistended. SKIN: Shows no rash. : Shows no Yap. NEUROLOGIC: Shows him to be alert and oriented x3. He is moving all extremities. PSYCHIATR IC: Shows normal mood and affect. BACK: Shows him to be tender to palpation over the musculature o n bilateral sides of his lower spine. He has no focal tenderness to palpation. He has no loss of st rength in his legs. No decreased sensation. LABORATORY DATA: White count is 16,000, platelets are 445. Creatinine is 0.6. DATA: 1. I discussed with Dr. Reynaga. Will admit to med/surg. 2. I reviewed his old chart, including his old kyphoplasties, his MRI from May. IMPRESSION AND PLAN: 1. Back pain: He has had 3 kyphoplasties recently. After some discussion, I have convinced him to get at least a plain film. He is resistant to any more advanced imaging at this point. He does not have any evidence of spinal canal compromise at this point. He does have a new compression fracture, could consider an additional kyphoplasty. We will provide him pain control with Tylenol, Robaxin. I would be very cautious with narcotics as he previously fell, triggering these compression fractures when he was on narcotics. 2. Leukocytosis: This was worse than normal. He has chronic ANGELA. I would consider an epidural abs cess, though there is nothing clearly pointing to that currently. We will get a chest x-ray, urinaly sis. I have ordered blood cultures as well. Consider further workup based on current imaging and cu rrent workup. 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 He is not on any directed the rapy at this point. 4. Disposition: He has been accepted to [facility] tomorrow. He would go as self-pay. This would depend on above workup. /[id number]/MODL
[2017-07-24] MEDS: LORazepam 0.5 MG TAB PO PRN (20:56)
[2017-07-24] MEDS: METHOCARBAMOL 500 MG TAB PO SCH (20:56)
[2017-07-25] MEDS: ACETAMINOPHEN 325 MG TAB PO PRN ×3 (01:51→13:41)
[2017-07-25] MEDS ORDERED: oxyCODONE IR 5 MG TAB PO PRN (04:01)
[2017-07-25] MEDS: LORazepam 0.5 MG TAB PO PRN (07:14)
[2017-07-25 08:28] VITALS: O2SAT 97
[2017-07-25] MEDS ORDERED: ENOXAPARIN 40 MG/0.4 ML SYR SC SCH (09:00)
[2017-07-25] MEDS ORDERED: POLYETHYLENE GLYCOL 3350 17 GM PKT PO SCH (09:00)
[2017-07-25] MEDS: METHOCARBAMOL 500 MG TAB PO SCH (09:34)
[2017-07-25 11:22] VITALS: BP 117/55; PULSE 74; RESP 12; TEMP 98.5
--- NOTE | 2017-07-25 13:22 | PDDCSUM ---
Discharge Summary Discharge Summary: Dates of service 07/24-07/25/17 Consultation/procedures: none Hospital course by problem: # back pain: with hx of several kyphoplasties in the past year, pain is severe but patient is eager to dc to rehab and states he will f/u with nsg # ANGELA # chronic respiratory failure DC to [facility] > 35 min spent in dc of patient most in coordination of care
--- NOTE | 2017-07-25 13:43 | PDIAF ---
- Diagnosis Code Status: Full Code - Medication Management Discharge Medications: Medications to Continue on Transfer Polyethylene Glycol 3350 [Miralax 17 gm (*)] 17 gm PO DAILY 06/10/17 [Last Taken 07/24/17] Linaclotide [Linzess] 145 mcg PO DAILY 07/24/17 [Last Taken 07/24/17] Methocarbamol [Robaxin 500 mg (*)] 500 mg PO BID 07/24/17 [Last Taken Unknown] Acetaminophen [Tylenol 325mg (*)] 650 mg PO Q4HRS PRN tab 07/25/17 [Last Taken Unknown] LORazepam [Ativan (*)] 0.5 mg PO QID PRN #60 tab 07/25/17 [Last Taken Unknown] oxyCODONE IR [Oxycodone Ir (*)] 2.5 mg PO Q4H PRN #60 tab 07/25/17 [Last Taken Unknown] Discharge Medications: Refer to the Discharge Home Medication list for PRN reason. - Orders Services needed: Registered Nurse, Certified Traffic Signal Supervisor Maintenance, Physical Therapy, Occupational Therapy Isolation Type: None Diet Recommendation: no restrictions on diet - Follow Up Care Current Providers and Referrals: Carolyn Pimentel MD [Medical Doctor] - Krystal Holley MD [Primary Care Provider] -
--- NOTE | 2017-07-25 15:01 | ASDISCHSUM ---
Discharge Information Plan Status: Medically Cleared to Leave: Discharge Date:07/25/2017 02:54 PM CM D/C Disposition: ADT D/C Disposition:Alf Facility Projected Discharge Date:07/25/2017 11:00 AM Transportation at D/C: Discharge Delay Reason: Follow-Up Date:07/25/2017 11:00 AM Discharge Slot: Final Diagnosis: Placement Information Referral Type:*Snf/SNF Referral ID:[id number] Provider Name:[facility] Address 1:[address] Address 2: City:[place] Selection Factors: State:[place] Patient Contact Information Contact Name:ELAINE Relationship: Address:[address] [facility] Work Phone: City:[facility] Phone: State/Zip Code:[place] [address] Email: Financial Information Financial Class:Medicare Advantage Plans Primary Plan Desc:[facility] Primary Plan Number:[id number] Secondary Plan Desc: Secondary Plan Number: Assessment Information Case Management Discharge Plan Note Case Management Discharge Discharge Order Complete? Answers: Yes Patient to Obtain Answers: Other Notes: [facility] Transportation Arranged Answers: Other Notes: [facility] Transport will Pick (Date 07/25/2017 02:00 PM & Time) Faxed Final Orders Answers: Yes Family Notified Answers: Yes Discharge Comments Notes: Patient discharged to [facility]. Facility arranged transport. notified. ELLEN August to call report. Date Signed: 07/25/2017 02:23 PM Electronically Signed By:Rosario Kennedy RN Intervention Information
== END 2017-07-25 14:54 ==
LOC: EDUNIT# → F3N 19:54
PROVIDERS: ADMIT Student in an Organized Health Care Education/Training Program; ATTEND Internal Medicine
DX: M54.5 Low back pain (principal); J96.10 Chronic respiratory failure, unspecified whether with hypoxia or hypercapnia; A31.0 Pulmonary mycobacterial infection; D72.829 Elevated white blood cell count, unspecified; M80.08XD Age-related osteoporosis with current pathological fracture, vertebra(e), subsequent encounter for fracture with routine healing
CPT/HCPCS: 71046; 72100; 97116; 97161; 97530; 99285; G0378; G8978; G8979

== ENCOUNTER 2017-08-24 09:21 | Inpatient (IN) | payer OTHER ==
--- NOTE | 2017-08-24 09:25 | EDPHY ---
H & P Time Seen by Provider: 08/24/17 09:25 HPI/ROS: CHIEF COMPLAINT: acute on chronic back pain HISTORY OF PRESENT ILLNESS: 81-year-old male history of bronchiectasis, L4 and T9 kyphoplasty, seen in the ER previously for intractable back pain with hospital admission for same. He is currently residing at assisted living apartment at [facility] . He arrives by ambulance complaining of intractable back pain not relieved with his regular schedule Tylenol and Robaxin since this morning. Pain feels like his usual breakthrough pain. He is on a regimen of schedule Tylenol. No opiates his as EMS notes that family knows that patient does not tolerate opiates well. No new trauma. No fall. No fever or chills. No urinary abnormality. No incontinence attention. No radiculopathy. Pain was unrelieved with 100 mcg of fentanyl via EMS. PRIMARY CARE PROVIDER: Dr. Davin Reynaga REVIEW OF SYSTEMS: A ten point review of systems was performed and is negative with the exception of the items mentioned in the HPI PAST MEDICAL & SURGICAL HISTORY: Medical history significant for COPD, 3 L oxygen dependent, chronic back pain multilevel kyphoplasty SOCIAL HISTORY:Lives by himself in an assisted living apartment at the [facility] PHYSICAL EXAM (Prior to examination, patient consented to physical exam, hands were washed and my usual and customary physical exam procedures followed) 1) GENERAL: Well-developed, well-nourished, alert and oriented. Answering questions appropriately. 2) HEAD: Normocephalic, atraumatic 3) HEENT: Pupils equal, round, reactive to light bilaterally. Sclera anicteric. 4) NECK: Full range of motion, no meningeal signs. 5) LUNGS: Clear auscultation bilaterally, no wheezes, no rhonchi, no retractions. 6) HEART: Regular rate and rhythm, no murmur, no heave, no gallop. 7) ABDOMEN: No guarding, no rebound, no focal tenderness, negative McBurney's, negative Barr's, negative Rovsing's, negative peritoneal sign, 8) MUSCULOSKELETAL: Moving all extremities, no focal areas of tenderness, no obvious trauma. No peripheral edema or discoloration. 9) BACK: Reproducible thoracolumbar back pain with movement, sitting up. Difficulty sitting up secondary to this pain. Tender to palpation lower thoracic region. No visible signs of trauma. No CVA tenderness, no fluctuance , no step-off, no obvious trauma, no visual or palpable abnormality. No signs of trauma. Patella and Achilles reflexes are intact equal bilaterally strength 5/5. 10) SKIN: No rash, no petechiae. 11) Psychiatric: Patient is oriented X 3, there is no agitation. DIFFERENTIAL DIAGNOSIS: In no particular order, including but not limited to, fracture, sprain/strain, cauda equina, spinal infectious etiology. - Personal History Tetanus Vaccine Date: UNSURE - Medical/Surgical History Hx Asthma: No Hx Chronic Respiratory Disease: Yes Hx Diabetes: No Hx Cardiac Disease: No Hx Renal Disease: No Hx Cirrhosis: No Hx Alcoholism: No Hx HIV/AIDS: No Hx Splenectomy or Spleen Trauma: No Other PMH: Chronic respiratory disease, bronchiectasis, appendectomy; constipation; green light procedure for enlarged prostate on 06/05/15. L4 repair , L1 repair, Rib fx. chronic pain - Social History Smoking Status: Former smoker Constitutional: Initial Vital Signs Temperature (C) 36.7 C 08/24/17 09:34 Heart Rate 81 08/24/17 09:34 Respiratory Rate 16 08/24/17 09:34 Blood Pressure 139/83 H 08/24/17 09:34 O2 Sat (%) 94 08/24/17 09:34 O2 Delivery Mode Nasal Cannula O2 (L/minute) 4 Allergies/Adverse Reactions: No Known Allergies Allergy (Verified 06/15/17 11:34) Home Medications: Medication Instructions Recorded Polyethylene Glycol 3350 [Miralax 17 gm PO DAILY 06/10/17 17 gm (*)] Linaclotide [Linzess] 145 mcg PO DAILY 07/24/17 Methocarbamol [Robaxin 500 mg (*)] 250 mg PO TID 07/24/17 Acetaminophen [Tylenol 325mg (*)] 650 mg PO Q4HRS PRN tab 07/25/17 LORazepam [Ativan (*)] 0.5 mg PO QID PRN #60 tab 07/25/17 Medical Decision Making - Diagnostics Imaging Results: Imaging Impressions Lumbar Spine X-Ray 08/24/17 09:39 Impression: 1. No acute findings in the lumbar spine. 2. Additional findings as above. Thoracic Spine X-Ray 08/24/17 09:39 Impression: 1. Increased moderate to severe compression fracture at T11 since July 2017. 2. Additional findings as above. Findings discussed with Cherelle Golden on 08/24/2017 at 10:54 a.m. Images reviewed myself ED Course/Re-evaluation: Greeted on arrival. Old medical records reviewed. division manager has been alerted as well. Discussed the case with secondary supervising physician Dr. Alberto Montenegro in the ER. 10:30 a.m.: Awaiting further laboratory studies. division manager has spoke with the patient. We are administering analgesia. I had a discussion with the patient and he states that he would prefer to be discharged back to the [facility]. He expresses that he is not interested in being inpatient or going to a rehabilitation facility. 11:10 a.m.: Re-evaluation. Discussed his imaging studies showing a worsened T11 compression fracture. Once again I inquired about trauma and he denies trauma or fall. His pain is not controlled in the ER. I have recommended admission to the hospital which he is agreeable with. 11:40 a.m.: Consultation with hospitalist Dr. Louis, admit to Dr. Valentino. Neurosurgery consultation pending 11:45 a.m.: Consultation with Dr. Acevedo who will consult for Neurosurgery - Data Points Laboratory Results: Laboratory Results 08/24/17 09:50 08/24/17 10:44 08/24/17 08/24/17 08/24/17 10:44 09:50 09:50 WBC 9.95 10^3/uL H 10^3/uL (3.80-9.50) RBC 3.96 10^6/uL L 10^6/uL (4.40-6.38) Hgb 13.1 g/dL L g/dL (13.7-17.5) Hct 38.1 % L % (40.0-51.0) MCV 96.2 fL fL (81.5-99.8) MCH 33.1 pg pg (27.9-34.1) MCHC 34.4 g/dL g/dL (32.4-36.7) RDW 14.8 % % (11.5-15.2) Plt Count 369 10^3/uL 10^3/uL (150-400) MPV 9.8 fL fL (8.7-11.7) Neut % (Auto) 73.0 % % (39.3-74.2) Lymph % (Auto) 12.5 % L % (15.0-45.0) Bent % (Auto) 12.3 % % (4.5-13.0) Eos % (Auto) 1.3 % % (0.6-7.6) Baso % (Auto) 0.5 % % (0.3-1.7) Nucleat RBC Rel Count 0.0 % % (0.0-0.2) Absolute Neuts (auto) 7.27 10^3/uL H 10^3/uL (1.70-6.50) Absolute Lymphs (auto) 1.24 10^3/uL 10^3/uL (1.00-3.00) Absolute Monos (auto) 1.22 10^3/uL H 10^3/uL (0.30-0.80) Absolute Eos (auto) 0.13 10^3/uL 10^3/uL (0.03-0.40) Absolute Basos (auto) 0.05 10^3/uL 10^3/uL (0.02-0.10) Absolute Nucleated RBC 0.00 10^3/uL 10^3/uL (0-0.01) Immature Gran % 0.4 % % (0.0-1.1) Immature Gran # 0.04 10^3/uL 10^3/uL (0.00-0.10) Sodium 132 mEq/L L mEq/L REJ (135-145) Potassium 4.7 mEq/L mEq/L TNP (3.5-5.2) Chloride 97 mEq/L mEq/L TNP (97-110) Carbon Dioxide 30 mEq/l mEq/l TNP (22-31) Anion Gap 5 mEq/L L mEq/L TNP (8-16) BUN 10 mg/dL mg/dL TNP (7-23) Creatinine 0.6 mg/dL L mg/dL TNP (0.7-1.3) Estimated GFR > 60 TNP Glucose 96 mg/dL mg/dL TNP (70-100) Calcium 9.1 mg/dL mg/dL TNP (8.5-10.4) Medications Given: Discontinued Medications Morphine Sulfate (Morphine) 4 mg IVP EDNOW ONE Stop: 08/24/17 10:31 Last Admin: 08/24/17 10:54 Dose: 4 mg Departure - Departure Disposition: [facility]patient Acute Clinical Impression: Chronic back pain Qualifiers: Back pain location: thoracic back pain Back pain laterality: midline Qualified Code(s): M54.6 - Pain in thoracic spine; G89.29 - Other chronic pain; G89.29 - Other chronic pain Non-traumatic compression fracture of T11 thoracic vertebra Qualifiers: Encounter type: initial encounter Qualified Code(s): M48.54XA - Collapsed vertebra, not elsewhere classified, thoracic region, initial encounter for fracture Condition: Fair
[2017-08-24 10:09] LABS: PLATELET COUNT 369 10^3/uL (150-400)
[2017-08-24] MEDS ORDERED: ONDANSETRON 4 MG/2 ML VIAL IVP PRN (12:51)
[2017-08-24] MEDS ORDERED: IBUPROFEN 200 MG TAB PO PRN (12:51)
[2017-08-24] MEDS ORDERED: ZOLPIDEM TARTRATE 5 MG TAB PO PRN (12:51)
--- NOTE | 2017-08-24 13:27 | NEUSURGPN ---
Assessment/Plan: Assessment: 81 yr old with history of kyphoplasty, now with new acute back pain T11 and T8 fracture(s) Neuro intact Plan: Please see dictated consult for details when available MRI thoracic and lumbar spine Pending MRI results, will consider kyphoplasty Patient not able to tolerate brace, has tried in past Patient admitted to Medicine Patient seen by Neurosurgery in the ER today at 1215 Subjective: Back pain Objective: AxOx3 5/5 BUE, BLE Sensation intact to light touch BLE Neuro Check Frequency: per routine Urinary Catheter in Place: No - Physician Discussed Patient with : Kirby Patient Seen by Dr.: Orr Neurosurgery Physical Exam - Vitals, I&O, Labs I and O 08/23/17 08/24/17 08/25/17 05:59 05:59 05:59 Weight 54.431 kg Vital Signs Temp Pulse Resp BP Pulse Ox 36.3 C 74 18 144/85 H 97 08/24/17 12:45 08/24/17 12:45 08/24/17 12:45 08/24/17 12:45 08/24/17 12:45 ICD10 Worksheet Patient Problems: Problems Problem Status Onset Chronic back pain Acute Non-traumatic compression fracture of T11 thoracic vertebra Acute Back pain Acute Bronchiectasis Acute Bronchiectasis Acute Dyspnea Acute Fracture, lumbar vertebra, compression Acute Hyponatremia Acute Hypoxia Acute Leukocytosis Acute Mycobacterium avium-intracellulare complex Acute Pneumonia Acute Urinary tract infection Acute
[2017-08-24] MEDS: ACETAMINOPHEN 325 MG TAB PO PRN ×2 (14:26→18:34)
[2017-08-24] MEDS: METHOCARBAMOL 500 MG TAB PO SCH ×2 (14:27→20:39)
[2017-08-24] MEDS: oxyCODONE IR 5 MG TAB PO PRN (14:27)
--- NOTE | 2017-08-24 14:32 | PDGENHP ---
History and Physical History and Physical: CC: Back pain HISTORY: This patient comes in with back pain pain he has a history of known osteoporosis and osteoporotic compression fractures. In fact in May of this year he was diagnosed with severe fractures at L1 and L4 and had kyphoplasties at both of those levels as he was not improving pain ibrahim. He has had a period of improved symptoms and mobility after this procedures but more recently has had some waxing and waning pain at been the lower thoracic area. Previously in June as CT scan identified some fracture at T11. Today he had onset of much more severe pain that woke him from sleep in bed early this morning. This is again at the lower thoracic area but without any radicular symptoms. He has had no recent falls or injuries, no fevers, no change in bowel or bladder function. He is feeling fairly weak overall in his activities have been limited lately by his pain as well as chronic limitation of activities from chronic breathing issues. He comes in to the hospital today seeking help for managing his back pain. At home uses Tylenol and Robaxin but no other medications for his pain. He is not aware whether he has had any specific tests to look for possible causes of osteoporosis, any is not taking any anti resorptive therapy at home at this time that he is aware of. Are medicine reconciliation from the pharmacist did not show any anti resorptive medicines or calcium or vitamin D ROS: A comprehensive 10 system review revealed no other significant findings PAST MEDICAL HISTORY: Chronic hypoxemic respiratory failure ANGELA Bronchiectasis Pulmonary embolism Osteoporosis with osteoporotic compression fractures of lumbar and thoracic spine Prior kyphoplasty of L1 and L4 vertebral bodies in May 2017 FAMILY MEDICAL HISTORY: Father of cancer SOCIAL HISTORY: Lives at the [facility] No tobacco or out call use Currently his ambulation is markedly impaired by his painful back, but he does have chronic limitations of activity from his breathing 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 I have reviewed the list and ordered appropriate medicines. Notably he is not using narcotic medications at home He does use some Robaxin PHYSICAL EXAMINATION: Vital Signs: Normal without fever Examination: General: alert, oriented, good mentation, looks moderately uncomfortable and a bit tense related to that Skin: warm, dry, good color, no rash Nutritional status: He has minimal subcutaneous body fat and is fairly thin in terms of lean body mass HEENT: normal Neck: no mass or jvd Lungs: Respirations are mildly rapid, lung sounds are mildly rhonchorous diffusely with diffusely diminished breath sounds Heart: regular, no murmur Abdomen: soft, nondistended, nontender, +BS, no mass Upper Extremities: normal Lower Extremities: no edema, warm No Bleeding or bruising Neurologic: normal speech/language, normal neuropsychiatrist, no focal weakness IV site: looks normal LABORATORY DATA: A CBC is unremarkable. Basic metabolic panel is remarkable for a slightly low sodium 132 otherwise normal RADIOLOGY STUDIES: X-rays of his thoracic spine today were done in the ER as well as lumbar spine. I reviewed the images. On the thoracic films today a previously known compression fracture at T11 looks probably more compressed compared to June [address] scan. He does have previous kyphoplasty material at T8 and at what I think might be L1 visible on this x-ray. His lumbar films show kyphoplasty material at L4 now on ASSESSMENT: -uncontrolled back pain from a worsening T11 osteoporotic compression fracture, without neurologic symptoms or fevers -previous multiple level osteoporotic compression fractures, previous multilevel kyphoplasties -osteoporosis: Reviewing available records here I cannot see that he has had previous vitamin-D testing; his calciums are never high and I do not suspect a hyperparathyroid state, TSH was checked 5 years ago and was slightly high; he is neither a smoker or drinker -chronic hypoxemic respiratory failure, multifactorial, stable at his current level of symptomatology and oxygen use -generalized deconditioning and weakness, may have increased fall risk potentially related to this, difficult to assess now due to the immobility from pain PLANS: Patient will brought be brought into the hospital on obstetrics initially, however depending on progress with mobility he may need a longer stay in to change to inpatient He has been seen by the Neurosurgery team and we are planning a MRI to further assess his T11 vertebral body anatomy. Consider possible kyphoplasty if no contraindications. I will order vitamin-D levels and repeat TSH levels Once I see these numbers will review with patient options for anti resorptive management Physical therapy and occupational therapy will see him Fall risk precautions DVT prophylaxis I have reviewed the patient's case in detail with Devonte castorena of the emergency room I have reviewed the patient's past medical records as part of this assessment, including previous hospital admission records from several visits
--- NOTE | 2017-08-24 15:14 | GCON ---
[f rep st] CONSULTATION DATE OF CONSULTATION: 08/24/2017 CHIEF COMPLAINT: Back pain. HISTORY OF PRESENT ILLNESS: The patient is an 81-year-old gentleman with a previous history of an L4 and a T9 kyphoplasty. The patient was brought into the emergency room today with intractable back pain. The patient denies any falls or any traumas. The patient denies any symptoms in his lower extremities. The patient currently lives in an assisted living apartment at the [facility] and does not feel he has had any difficulty with walking recently and denies any new weakness in his lower extremities. REVIEW OF SYSTEMS: A 10-point review of systems was performed and negative aside from what was mentioned in the HPI. PAST MEDICAL HISTORY: Chronic respiratory disease, bronchiectasis constipation , chronic pain, and rib fractures. PAST SURGICAL HISTORY: Appendectomy, a GreenLight procedure for enlarged prostate on June 05, 2015, and kyphoplasty L4 and T9. CURRENT MEDICATIONS: MiraLAX 17 grams p.o. daily; Linzess 145 mcg p.o. daily; Robaxin 500 mg p.o. twice daily; acetaminophen 650 mg p.o. q.4 p.r.n.; Ativan 0.5 mg p.o. four times daily p.r.n.; oxycodone IR 2.5 mg p.o. q.4 p.r.n. ALLERGIES: No known drug allergies. SOCIAL HISTORY: The patient lives in assisted living at the [facility]. He does not drink alcohol. He is a former smoker. He does not use any illicit drugs. FAMILY HISTORY: No pertinent family history to the current situation. DIAGNOSTICS/LABORATORY: White blood cell count 9.95, hemoglobin 13.1, hematocrit 38.1, platelets 369. Sodium 132, potassium 4.7, BUN 10, creatinine 0.6, glucose is 96. DIAGNOSTIC IMAGING: X-rays of the lumbar spine demonstrate moderate L1 and mild L4 compression fractures post kyphoplasty. No acute findings. X-ray of the thoracic spine demonstrates increased gfvhmnca-yp-bjbose compression fracture at T11 since July of 2017. Kyphoplasty in the severe compression fracture at T9 is stable. There appears to be an increased vertebral body height loss and a vtrgtrhv-ir-otlmkm compression fracture of T11 since July of 2015. A rlnjypho-gk-ljxhfd compression fracture at T8 is not significantly changed, and osteopenia is present. PHYSICAL EXAMINATION: VITAL SIGNS: Blood pressure 144/85, heart rate 74, respiratory rate 18, oxygen saturations 97% on 3 L nasal cannula. Temperature is 36.3 degrees Celsius. HEENT: Head is normocephalic and atraumatic. Pupils are equal, round, and reactive to light. EOMIs intact. RESPIRATORY: Deferred. CARDIAC: Deferred. ABDOMEN: Deferred. GENITOURINARY: Deferred. RECTAL: Deferred. NEUROLOGIC: The patient is awake and alert and oriented to name, place, location, date, time, and situation. Memory is intact to immediate past and current events, although he does perseverate on asking the same questions repeatedly until an answer is given. Speech: No aphasia or dysphonia. Cranial nerves 2 through 12 are grossly intact. Motor: The patient has 5/5 strength in all muscle groups in bilateral lower and upper extremities to include deltoids, biceps, triceps, brachioradialis, wrist flexion , extensors, salesperson automobiles, intrinsic fingers, iliopsoas, quadriceps, hamstrings, plantar flexion, dorsiflexion, and EHL testing. Sensation is grossly intact to light touch throughout all dermatomal distributions in bilateral lower extremities. Reflexes: Biceps, triceps, brachioradialis, knee jerk, and ankle jerk are 2+/4. Toes are downgoing bilaterally. Reina sign is negative. Babinski is negative, and there is no evidence of clonus. ASSESSMENT AND PLAN: The patient is an 81-year-old gentleman with a known history of previous kyphoplasties for compression fractures in his lumbar spine. The patient presented today via ambulance with intractable back pain and was found to have worsening compression of a known T11 fracture. The patient denies any falls or any traumas. We will get an MRI of the thoracic and lumbar spine to further evaluate the fractures. Pending MRI results, we will plan for kyphoplasty sometime this week with Dr Orr. He states that he was unable to tolerate a brace in the past, and so we will forego consulting bracing company. The patient was seen by Neurosurgical Services in the emergency department today , August 24, 2017, at 12:15 p.m. Please call Neurosurgery with any questions or concerns. /[id number]/MODL MTDD
[2017-08-24] MEDS ORDERED: traMADol 50 MG TAB PO PRN (15:30)
--- NOTE | 2017-08-24 16:59 | WOCRNPDOC ---
WOCRN Advanced Assessment Note - Skin Integrity Problem, Advanced Assess Right Hip Pressure Injury Integumentary Issue Intervention: Dressing Applied, Dressing Initialed & Dated Marifer Wound Tissue: Blanching, Erythema, Painful/Tender Site Measurement - Head-to-Toe Length X Width X Depth (cm): 0.7x0.7x0.0 Pressure Injury Stage: Stage 1 Pressure Injury Present on Admit: Yes Skin Integrity Problem Comment: Small, non blanching pressure injury on greater trochanter, with large area of erythema surrounding the pressure injury. Allevyn applied for protection. Patient stated he was aware of wound. Wound care will sign off.
--- NOTE | 2017-08-24 17:47 | ASMTCMCOM ---
CM Note CM Note Notes: Pt presented to the ED for increased, intractable back pain with no recent falls or injuries. Pt has a history of T11 compression fracture in July 2017 and xrays done in the ED today show the compression fracture has worsened. Patient to have lumbar and thoracic MRIs tomorrow and possible kyphoplasty with Dr Orr later this week. Pt also has a T8 compression fracture; and also L1, L4 and T9 compression fractures with kyphoplasty. Spoke with patient and he says he lives in Assisted Living at [facility]. His Elo still lives at the [facility] in Independent Living. Pt reports he receives home care through [facility]. Pt recently admitted and discharged to [facility] on 07/25/17. Pt states he was discharged from [facility] "about a week ago." We discussed the possibility of him returning to [facility] for continued pain management, supportive therapies and to follow up with neurosurgery outpatient. Patient does not want to return to [facility]. Pt ultimately wants to return to his assisted living apt and hopes to find a better solution to controlling his pain. Pt does not tolerate opiates and only takes Tylenol, Ativan PRN and Robaxin for pain mgmt. Pt also does not tolerate a back brace. Pt typically is able to ambulate when not in severe pain. Await MRI results and possible neurosurgery later this week. Anticipate DC back to CT at [facility] with better pain mgmt options. CM to follow. Date Signed: 08/24/2017 05:46 PM Electronically Signed By:Mary Saxena RN
[2017-08-24] MEDS ORDERED: LORazepam 0.5 MG TAB PO ONE (23:08)
[2017-08-25] MEDS: ACETAMINOPHEN 325 MG TAB PO PRN ×2 (05:37→13:12)
[2017-08-25] MEDS: oxyCODONE IR 5 MG TAB PO PRN ×2 (05:39→08:50)
--- NOTE | 2017-08-25 07:02 | NEUSURGPN ---
Assessment/Plan: A: 81 yo M with hx of compression fx s/p kyphoplasty with severe persistent back pain P: -MRI T and L spine pending today, will order valium to be taken prior to procedure -Pain management -Activity as tolerated -Likely kyphoplasty with Dr Orr later this week -Call NS with any Qs -D/w Dr Orr Subjective: Pt resting in bed, c/o persistent back pain when upright. Currently resting on his side in bed and states this is a comfortable position. Objective: AAOx3 NAD VSS MAEx4 Motor 5/5 BLE +LT Urinary Catheter in Place: No - Physician Discussed Patient with : [facility] Physical Exam - Vitals, I&O, Labs I and O 08/24/17 08/25/17 08/26/17 05:59 05:59 05:59 Output Total 650 Balance -650 Weight 54.431 kg Output: Urine (ml) 650 Urinal 650 Other: Intake Quantity Yes Sufficient Number of Voids Incontinence 1 Vital Signs Temp Pulse Resp BP Pulse Ox 36.9 C 79 16 127/65 H 98 08/25/17 04:48 08/25/17 04:48 08/25/17 04:48 08/25/17 04:48 08/25/17 04:48 ICD10 Worksheet Patient Problems: Problems Problem Status Onset Chronic back pain Acute Non-traumatic compression fracture of T11 thoracic vertebra Acute Back pain Acute Bronchiectasis Acute Bronchiectasis Acute Dyspnea Acute Fracture, lumbar vertebra, compression Acute Hyponatremia Acute Hypoxia Acute Leukocytosis Acute Mycobacterium avium-intracellulare complex Acute Pneumonia Acute Urinary tract infection Acute
[2017-08-25] MEDS ORDERED: DIAZEPAM 5 MG/ML 1 ML SYR IVP PRN (07:07)
[2017-08-25] MEDS: DIAZEPAM 5 MG TAB PO PRN (07:54)
[2017-08-25] MEDS: METHOCARBAMOL 500 MG TAB PO SCH (07:56)
[2017-08-25] MEDS ORDERED: oxyCODONE IR 5 MG TAB PO ONE (08:58)
[2017-08-25] MEDS ORDERED: LINACLOTIDE 145 MCG PO SCH (09:00)
[2017-08-25] MEDS ORDERED: POLYETHYLENE GLYCOL 3350 17 GM PKT PO PRN (09:09)
[2017-08-25] MEDS ORDERED: MAGNESIUM HYDROXIDE 30 ML UDCUP PO PRN (09:09)
[2017-08-25] MEDS ORDERED: BISACODYL 10 MG SUPP PR PRN (09:09)
[2017-08-25] MEDS ORDERED: LACTULOSE 20 GM/30 ML UDCUP PO PRN (09:09)
--- NOTE | 2017-08-25 09:09 | HOSPPROG ---
Hospitalist Progress Note Assessment/Plan: DIAGNOSES: -uncontrolled back pain from a worsening T11 osteoporotic compression fracture, without neurologic symptoms or fevers -previous multiple level osteoporotic compression fractures, previous multilevel kyphoplasties -osteoporosis -Vitamin D deficiency (undetectable level) -chronic hypoxemic respiratory failure, multifactorial, stable at his current level of symptomatology and oxygen use -generalized deconditioning and weakness, may have increased fall risk potentially related to this, difficult to assess now due to the immobility from pain -constipation PLANS: -needs more medication for pain, will increase oxycodone and robaxin doses -he has never benefitted from lidocaine patch and doesn't want one -will add bowel protocol -start high dose vitamin D now, will need ongoing outpt f/u for this -will not start Ca suppl until we get bowels going -await MRI, anticipate likely kyphoplasty SUBJ: still severe low thoracic spine pain w/o radiation poor appetite but no nausea no BM for 2 days no fever sxs OBJ: vitals stable without fever exam: awake oriented, looks very uncomfortable skin warm dry color ok resp easy lungs clear heart reg abd soft nontender legs no edema is lying on side, not willing to move due to severe pain with movement normal sensation in legs and moves feet toes ok Lab data: vitamin d level undetectable TSH normal Radiology: MRI has not yet been done Objective: Vital Signs Temp Pulse Resp BP Pulse Ox 36.4 C 79 16 124/65 H 97 08/25/17 07:24 08/25/17 07:24 08/25/17 07:24 08/25/17 07:24 08/25/17 07:24 08/24/17 08/25/17 08/26/17 06:59 06:59 06:59 Output Total 650 Balance -650 - Time Spent With Patient Time Spent with Patient: greater than 35 minutes Time Spent with Patient: Greater than 35 minutes spent on this patients care, greater than 50% of time spent counseling, educating, and coordinating care regarding the above mentioned plan. ICD10 Worksheet Patient Problems: Problems Problem Status Onset Chronic back pain Acute Non-traumatic compression fracture of T11 thoracic vertebra Acute Back pain Acute Bronchiectasis Acute Bronchiectasis Acute Dyspnea Acute Fracture, lumbar vertebra, compression Acute Hyponatremia Acute Hypoxia Acute Leukocytosis Acute Mycobacterium avium-intracellulare complex Acute Pneumonia Acute Urinary tract infection Acute
[2017-08-25] MEDS ORDERED: METHYLNALTREXONE BROMIDE 12 MG/0.6 ML INJ SC ONE (09:10)
[2017-08-25] MEDS: METHOCARBAMOL 750 MG TAB PO SCH ×3 (09:45→22:17)
[2017-08-25] MEDS: ENOXAPARIN 40 MG/0.4 ML SYR SC SCH (09:46)
[2017-08-25] MEDS: (Linaclotide [Linzess] 145 MCG) PO SCH (13:13)
[2017-08-25] MEDS: ERGOCALCIFEROL 50,000 I.UNIT CAP PO SCH (13:13)
[2017-08-25] MEDS: POLYETHYLENE GLYCOL 3350 17 GM PKT PO SCH (13:14)
[2017-08-25] MEDS ORDERED: NS 1,000 ML IV SCH (17:15)
--- NOTE | 2017-08-25 17:32 | ASMTCMCOM ---
CM Note CM Note Notes: Met with patient, daughter and patient's private RN regarding discharge plan of care. Patient recently discharged from [facility] (See previous ED CM note for more details) and is now current with [facility]. Patient lives at [facility] where he receives assistance twice a week with meals and medication assistance daily. Private RN assists patient three days a week for several hours. Patient states he had an 'okay' experience at [facility] but is really hoping to return to the [facility] at d/c. At this time, he is not willing to consider SNF. I notified [facility] that patient was now on 3N. At this time, anticipate discharge back to [facility] with [facility]. Updates have been sent to his [facility]. CM will follow. Plan: [facility] Date Signed: 08/25/2017 05:31 PM Electronically Signed By:Yadi Hameed RN
[2017-08-25] MEDS: AMPICILLIN/SULBACTAM 3 GM VIAL IV SCH ×2 (18:52→23:15)
[2017-08-25] MEDS: HYDROmorphone HCL/NS 0.5 MG/ML SYR IVP PRN (19:43)
--- NOTE | 2017-08-25 20:21 | PDMN ---
Medical Necessity Medical necessity: Patient meets inpatient criteria per physician note and [facility] M -283 Pneumonia Due to Aspiration - 3 days - (MRI shows RLL pneumonia suggestive of aspiration, sat 91% on 3.5 LPM O2; intractable back pain d/t acute compression deformities at mult levels in lower thoracic spine; LOS will be > 2 midnights for IV antibiotics, IV hydration while NPO, awaiting speech language pathology eval.)
[2017-08-25] MEDS: SENNOSIDES/DOCUSATE SODIUM TAB PO SCH (22:17)
[2017-08-26] MEDS: oxyCODONE IR 15 MG TAB PO PRN (04:24)
[2017-08-26] MEDS: AMPICILLIN/SULBACTAM 3 GM VIAL IV SCH ×2 (05:14→13:53)
--- NOTE | 2017-08-26 09:00 | SOAPPROG ---
SOAP Progress Note Assessment/Plan: Assessment: 81 yo M with acute T8, T11, T12 and L5 compression fractures Plan: neuro: continued back pain despite conservative care Discussed condition with patients daughter last night and they would prefer if IR did the kyphoplasty to avoid general anesthesia for patient keep NPO for now PT/OT please call with neuro changes will sign off, please call with any questions discussed with Dr Orr and Dr Burgess 08/26/17 08:53 Subjective: continued back pain and spasms, no leg pain, no weakness. Objective: Vital Signs Temp Pulse Resp BP Pulse Ox 36.5 C 92 16 112/58 L 100 08/26/17 07:17 08/26/17 07:17 08/26/17 07:17 08/26/17 07:17 08/26/17 07:17 08/25/17 08/26/17 08/27/17 05:59 05:59 05:59 Intake Total 900 Output Total 650 100 Balance -650 800 AAOx4, +FC PERRL, no facial droop 5/5 + light touch ICD10 Worksheet Patient Problems: Problems Problem Status Onset Chronic back pain Acute Non-traumatic compression fracture of T11 thoracic vertebra Acute Back pain Acute Bronchiectasis Acute Bronchiectasis Acute Dyspnea Acute Fracture, lumbar vertebra, compression Acute Hyponatremia Acute Hypoxia Acute Leukocytosis Acute Mycobacterium avium-intracellulare complex Acute Pneumonia Acute Urinary tract infection Acute
--- NOTE | 2017-08-26 09:20 | HOSPPROG ---
Hospitalist Progress Note Assessment/Plan: Acute compression fractures T8, T11, T12 - previous kyphoplasty for other compression fractures in setting of osteoporosis -IR to eval for kyphoplasty -pain control in meantime, hold PT Osteoporosis - Cont Vit D, add calcium when able to take po Vitamin D deficiency (undetectable level) - replacement started Chronic hypoxemic respiratory failure, multifactorial - on Unasyn for possible aspiration pna (seen on thoracic MRI, pers reviewed/interp) -cont unasyn for now, check CXR and PCT -NPO while ongoing swallow eval Generalized deconditioning and weakness - increased fall risk Constipation - bowel regimen Full code DVT PPLX - Lovenox (hold today for possible procedure) Dispo - cont inpt Subjective: Pt is in severe pain if he tries to sit up. Currently on side, in position, c/o thoracic back pain. No fevers. Thinks the aspiration possibility is "bogus". Some cough. Denies CP or SOB. Currently NPO Objective: Vital Signs Temp Pulse Resp BP Pulse Ox 36.5 C 92 16 112/58 L 100 08/26/17 07:17 08/26/17 07:17 08/26/17 07:17 08/26/17 07:17 08/26/17 07:17 08/25/17 08/26/17 08/27/17 05:59 05:59 05:59 Intake Total 900 Output Total 650 100 Balance -650 800 - Physical Exam Constitutional: no apparent distress, chronically ill appearing, cachectic Eyes: PERRL Ears, Nose, Mouth, Throat: moist mucous membranes Cardiovascular: regular rate and rhythym Respiratory: no respiratory distress, inspiratory crackles Gastrointestinal: normoactive bowel sounds, soft, non-tender abdomen Skin: warm Musculoskeletal: other (+tenderness multiple levels of thoracic spine) Neurologic: AAOx3 Psychiatric: interacting appropriately ICD10 Worksheet Patient Problems: Problems Problem Status Onset Chronic back pain Acute Non-traumatic compression fracture of T11 thoracic vertebra Acute Back pain Acute Bronchiectasis Acute Bronchiectasis Acute Dyspnea Acute Fracture, lumbar vertebra, compression Acute Hyponatremia Acute Hypoxia Acute Leukocytosis Acute Mycobacterium avium-intracellulare complex Acute Pneumonia Acute Urinary tract infection Acute
[2017-08-26] MEDS: METHOCARBAMOL 750 MG TAB PO SCH ×4 (09:29→22:32)
[2017-08-26] MEDS: ERGOCALCIFEROL 50,000 I.UNIT CAP PO SCH (09:29)
[2017-08-26] MEDS: POLYETHYLENE GLYCOL 3350 17 GM PKT PO SCH (09:29)
[2017-08-26] MEDS: SENNOSIDES/DOCUSATE SODIUM TAB PO SCH ×2 (09:29→22:32)
[2017-08-26] MEDS: LORazepam 0.5 MG TAB PO PRN (09:45)
[2017-08-26] MEDS: D5W NS 1,000 ML IV SCH (09:46)
[2017-08-26] MEDS: (Linaclotide [Linzess] 145 MCG) PO SCH (10:01)
[2017-08-26] MEDS: HYDROmorphone HCL/NS 0.5 MG/ML SYR IVP PRN ×2 (10:09→13:13)
[2017-08-26 12:57] LABS: INR 1.03 (0.83-1.16); PROTIME(PATIENT) 13.7 SEC (12.0-15.0)
[2017-08-26] MEDS: ENOXAPARIN 40 MG/0.4 ML SYR SC SCH (13:09)
[2017-08-26] MEDS ORDERED: DEXMEDETOMIDINE IN 0.9 % NACL 100 ML IV ONE (16:00)
[2017-08-26] MEDS ORDERED: MIDAZOLAM 2 MG/2 ML VIAL ONE (16:01)
[2017-08-26] MEDS ORDERED: PROPOFOL 200 MG/20 ML VIAL ONE (16:04)
[2017-08-26] MEDS ORDERED: LIDOCAINE 2% 5 ML SDV ONE (16:07)
[2017-08-26] MEDS ORDERED: BUPIVACAINE 0.5% 30 ML SDV ONE (16:08)
[2017-08-26] MEDS ORDERED: LIDOCAINE 1% 300 MG/30 ML SDV ONE (16:08)
--- NOTE | 2017-08-26 16:14 | PDANEPAE ---
ANE Past Medical History - Cardiovascular History Hx Hypertension: No Hx Arrhythmias: No Hx Chest Pain: No Hx Coronary Artery / Peripheral Vascular Disease: No Hx CHF / Valvular Disease: No Hx Palpitations: No - Pulmonary History Hx COPD: No Hx Asthma/Reactive Airway Disease: Yes Hx Recent Upper Respiratory Infection: No Hx Oxygen in Use at Home: Yes O2 in Use at Home (L/minute): 3 Hx Sleep Apnea: No Sleep Apnea Screening Result - Last Documented: Negative Pulmonary History Comment: Mycobacterium Avium intracellulare - Neurologic History Hx Cerebrovascular Accident: No Hx Seizures: No Hx Dementia: No - Endocrine History Hx Diabetes: No - Renal History Hx Renal Disorders: No - Liver History Hx Hepatic Disorders: No - Neurological & Psychiatric Hx Hx Neurological and Psychiatric Disorders: No - Cancer History Hx Cancer: No - Congenital Disorder History Hx Congenital Disorders: No - GI History Hx Gastrointestinal Disorders: No - Chronic Pain History Chronic Pain: Yes ([facility] - Surgical History Prior Surgeries: Tonsillectomy as a child ANE Review of Systems Review of Systems: ANE Patient History - Allergies Allergies/Adverse Reactions: No Known Allergies Allergy (Verified 06/15/17 11:34) - Home Medications Home Medications: Polyethylene Glycol 3350 [Miralax 17 gm (*)] 17 gm PO DAILY 06/10/17 [Last Taken 08/23/17] Linaclotide [Linzess] 145 mcg PO DAILY 07/24/17 [Last Taken 08/23/17] Methocarbamol [Robaxin 500 mg (*)] 250 mg PO TID 07/24/17 [Last Taken 08/23/17] - Smoking Hx Smoking Status: Former smoker - Family Anes Hx Family Hx Anesthesia Complications: None ANE Labs/Vital Signs - Labs Result Diagrams: 08/24/17 09:50 08/24/17 10:44 - Vital Signs Blood Pressure: 125/78 Heart Rate: 85 Respiratory Rate: 12 O2 Sat (%): 98 Height: 187.96 cm Weight: 54.431 kg ANE Physical Exam - Airway Neck exam: decreased ROM Mallampati Score: Class 2 Mouth exam: normal dental/mouth exam - Pulmonary Pulmonary: reduced air movement, expiratory wheeze, dullness to percussion - ASA Status ASA Status: IV ANE Anesthesia Plan Anesthesia Plan: MAC
[2017-08-26] MEDS ORDERED: PHENYLEPHRINE HCL 100 MCG/ML SYR ONE (16:43)
[2017-08-26] MEDS ORDERED: ALBUTEROL 3 ML DEYVIAL IH PRN (16:45)
[2017-08-26] MEDS ORDERED: fentaNYL 100 MCG/2 ML INJ IVP PRN (16:45)
[2017-08-26] MEDS ORDERED: NALOXONE HCL 0.4 MG/ML INJ IVP PRN (16:45)
[2017-08-26] MEDS ORDERED: ONDANSETRON 4 MG/2 ML VIAL IVP PRN (16:45)
--- NOTE | 2017-08-26 17:59 | PDRADPN ---
Radiology Procedure Note Date of Procedure: 08/26/17 Radiologist: Denise Ge Anesthesiologist: Dr. Erendira Rowell Anesthesia: IV Sedation Pre-op Diagnosis: multiple thoracic acute compression fractures Post-op Diagnosis: same Indication: severe pain. osteoporosis Procedure: kyphoplasty, T8, and t10-12 Finding(s): good cement distribution. Inf/Abcess present in the surg proc area at time of surgery?: No Complications: none
[2017-08-26] MEDS: ACETAMINOPHEN 325 MG TAB PO PRN (23:15)
[2017-08-27] MEDS: oxyCODONE IR 15 MG TAB PO PRN ×3 (00:25→20:15)
[2017-08-27] MEDS: DIAZEPAM 5 MG TAB PO PRN ×2 (00:25→20:17)
[2017-08-27 06:10] LABS: PLATELET COUNT 292 10^3/uL (150-400)
[2017-08-27] MEDS: ERGOCALCIFEROL 50,000 I.UNIT CAP PO SCH (08:55)
[2017-08-27] MEDS: METHOCARBAMOL 750 MG TAB PO SCH ×4 (08:56→22:44)
[2017-08-27] MEDS: SENNOSIDES/DOCUSATE SODIUM TAB PO SCH ×2 (08:56→20:18)
--- NOTE | 2017-08-27 09:43 | HOSPPROG ---
Hospitalist Progress Note Assessment/Plan: Acute compression fractures T8, T11, T12 - s/p successful multi-level kyphoplasty POD #1, pain improved -PT/OT Osteoporosis - Cont Vit D, add calcium Vitamin D deficiency (undetectable level) - replacement started Chronic hypoxemic respiratory failure, multifactorial - H/O ANGELA noted. Reviewed prior CXR from 07/2017, similar RLL consolidation was present then. PCT neg. -d/c Unasyn -cont on baseline O2 requirement 3-4 LPM -monitor for signs of infection -outpt pulm f/u Generalized deconditioning and weakness - increased fall risk, PT/OT Constipation - bowel regimen Malnutrition - dietary consult Dysphagia - speech / swallow eval today. Pt's daughter does not want him on modified diet. Full code DVT PPLX - Lovenox Dispo - cont inpt Subjective: Pt doing a little better today. Pain improved after kyphoplasty yest. He is hungry for breakfast. No fevers/chills. No CP, SOB or cough. Weak. Objective: Vital Signs Temp Pulse Resp BP Pulse Ox 36.5 C 81 18 108/52 L 99 08/27/17 08:00 08/27/17 08:00 08/27/17 08:00 08/27/17 08:00 08/27/17 08:00 Laboratory Results 08/27/17 05:09 08/27/17 05:09 08/26/17 08/27/17 08/28/17 05:59 05:59 05:59 Intake Total 900 960 Output Total 100 395 Balance 800 565 PT 13.7 SEC (12.0-15.0) 08/26/17 12:30 INR 1.03 (0.83-1.16) 08/26/17 12:30 - Physical Exam Constitutional: chronically ill appearing, cachectic Eyes: PERRL Ears, Nose, Mouth, Throat: moist mucous membranes Cardiovascular: regular rate and rhythym Respiratory: no respiratory distress Gastrointestinal: normoactive bowel sounds, soft, non-tender abdomen Skin: warm Musculoskeletal: generalized weakness Neurologic: AAOx3 Psychiatric: interacting appropriately ICD10 Worksheet Patient Problems: Problems Problem Status Onset Chronic back pain Acute Non-traumatic compression fracture of T11 thoracic vertebra Acute Back pain Acute Bronchiectasis Acute Bronchiectasis Acute Dyspnea Acute Fracture, lumbar vertebra, compression Acute Hyponatremia Acute Hypoxia Acute Leukocytosis Acute Mycobacterium avium-intracellulare complex Acute Pneumonia Acute Urinary tract infection Acute
[2017-08-27] MEDS ORDERED: ERGOCALCIFEROL 50,000 I.UNIT CAP PO SCH (09:44)
[2017-08-27] MEDS: CALCIUM CARBONATE 500 MG TAB PO SCH (10:22)
[2017-08-27] MEDS: POLYETHYLENE GLYCOL 3350 17 GM PKT PO SCH (10:22)
[2017-08-27] MEDS: (Linaclotide [Linzess] 145 MCG) PO SCH (10:24)
[2017-08-27] MEDS: LORazepam 0.5 MG TAB PO PRN (12:45)
--- NOTE | 2017-08-27 13:18 | SOAPPROG ---
SOAP Progress Note Assessment/Plan: Assessment: 81M with acute compression fractures of T8, T11 and T12 and previous vertebroplasty for T9 and L1 fractures is POD1 s/p successful T8, T10, T11 and T12 kyphoplasty. -Improved pain today, tolerated limited PT. -Please contact IR if any issues arise or if pain relief is incomplete. 08/27/17 13:13 Subjective: Resting in bed, tolerating PO. Daughter reports slow anaesthesia recovery. Improved pain reported, no new symptoms, no deficits. Objective: Vital Signs Temp Pulse Resp BP Pulse Ox 36.3 C 88 18 122/69 H 98 08/27/17 12:00 08/27/17 12:00 08/27/17 12:00 08/27/17 12:00 08/27/17 12:00 Laboratory Results 08/27/17 05:09 08/27/17 05:09 08/26/17 08/27/17 08/28/17 05:59 05:59 05:59 Intake Total 900 960 Output Total 100 395 Balance 800 565 PT 13.7 SEC (12.0-15.0) 08/26/17 12:30 INR 1.03 (0.83-1.16) 08/26/17 12:30 Dressings are CDI. No point tenderness of T spine on palpation. MAEE - Time Spent With Patient Time Spent With Patient: 15 minutes ICD10 Worksheet Patient Problems: Problems Problem Status Onset Chronic back pain Acute Non-traumatic compression fracture of T11 thoracic vertebra Acute Back pain Acute Bronchiectasis Acute Bronchiectasis Acute Dyspnea Acute Fracture, lumbar vertebra, compression Acute Hyponatremia Acute Hypoxia Acute Leukocytosis Acute Mycobacterium avium-intracellulare complex Acute Pneumonia Acute Urinary tract infection Acute
--- NOTE | 2017-08-27 13:22 | POSTANESTH ---
Post Anesthetic Evaluation Cardiovascular Status: Normal, Stable, Similar to Pre-Op Cond Respiratory Status: Normal, Stable, Similar to Pre-op Cond. Level of Consciousness/Mental Status: Can Participate in Eval Pain Control: Adequate, Prn Tx Ordered Nausea/Vomiting Control: Adequate, Prn Tx Ordered Complications Possibly Related to Anesthesia: None Noted
[2017-08-28] MEDS: CALCIUM CARBONATE 500 MG TAB PO SCH ×3 (01:49→21:23)
[2017-08-28] MEDS: oxyCODONE IR 15 MG TAB PO PRN ×2 (03:43→09:34)
[2017-08-28 05:13] LABS: PLATELET COUNT 281 10^3/uL (150-400)
[2017-08-28] MEDS: METHOCARBAMOL 750 MG TAB PO SCH ×2 (09:41→15:01)
[2017-08-28] MEDS: SENNOSIDES/DOCUSATE SODIUM TAB PO SCH ×2 (09:41→21:24)
[2017-08-28] MEDS: POLYETHYLENE GLYCOL 3350 17 GM PKT PO SCH (09:46)
[2017-08-28] MEDS: (Linaclotide [Linzess] 145 MCG) PO SCH (09:46)
[2017-08-28] MEDS: ENOXAPARIN 40 MG/0.4 ML SYR SC SCH (09:47)
[2017-08-28] MEDS: ACETAMINOPHEN 325 MG TAB PO PRN ×3 (09:53→23:13)
[2017-08-28] MEDS: LORazepam 0.5 MG TAB PO PRN ×2 (10:35→18:24)
[2017-08-28] MEDS: CHOLECALCIFEROL VIT D3 1,000 UNITS TAB PO SCH (13:18)
--- NOTE | 2017-08-28 13:41 | HOSPPROG ---
Hospitalist Progress Note Assessment/Plan: Acute compression fractures T8, T11, T12 - s/p successful multi-level kyphoplasty POD #1, pain improved -PT/OT Osteoporosis - Cont Vit D, calcium Vitamin D deficiency (undetectable level) - replacement started Chronic hypoxemic respiratory failure, multifactorial - H/O ANGELA noted. Followed by Dr. Martin pulm, who has Rx'd atbx regimen in past, but pt and family stopped this due to side effects and do not wish to try further atbx. Reviewed prior CXR from 07/2017, similar RLL consolidation was present then. PCT neg. -d/c'd Unasyn -cont on baseline O2 requirement 3-4 LPM -monitor for signs of infection -outpt pulm f/u Dysphagia - Reviewed speech eval, no signs of overt aspiration, though esophageal dysmotility / HH noted. Pt's daughter (JACK) does not want him on modified diet and thus will not pursue VFSS. Goal is for quality and they wish for more of a recreational diet approach, accepting risk of aspiration / . Acknowledged this approach is not c/w Full code status. See below. Generalized deconditioning and weakness / failure to thrive - increased fall risk, PT/OT Constipation - bowel regimen Malnutrition - dietary consult Full code DVT PPLX - Lovenox Dispo - cont inpt Goals of care - discussed goals of care with pt, daughter Andrew (JACK). He wants to be home at the [facility]. They refuse SNF placement. His condition is declining and their decisions about eating despite aspiration risk and refusal of rehab or ongoing pulmonary treatments are c/w more of a palliative approach. They have had palliative care as outpt in the past and were not happy with this. Daughter is open to hospice and would like to pursue hospice eval, ordered. Discussed code status, she was not willing/able to change to DNR over the phone. 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 Will need to readdress with hospice / palliative discussions this afternoon. Subjective: Pt up in chair. He was quite anxious this am and got ativan. Denies pain. No CP, SOB or cough. No fevers. He is very weak. Objective: Vital Signs Temp Pulse Resp BP Pulse Ox 36.6 C 82 18 121/71 H 97 04/20/18 11:45 08/28/17 11:45 08/28/17 11:45 08/28/17 11:45 08/28/17 11:45 Laboratory Results 08/28/17 04:38 08/28/17 04:38 08/27/17 08/28/17 08/29/17 05:59 05:59 05:59 Intake Total 960 2174 300 Output Total 395 700 Balance 565 1474 300 PT 13.7 SEC (12.0-15.0) 08/26/17 12:30 INR 1.03 (0.83-1.16) 08/26/17 12:30 - Physical Exam Constitutional: chronically ill appearing, cachectic Eyes: PERRL Ears, Nose, Mouth, Throat: moist mucous membranes Cardiovascular: regular rate and rhythym Respiratory: no respiratory distress, reduced air movement Gastrointestinal: normoactive bowel sounds, soft, non-tender abdomen Skin: warm, normal color Musculoskeletal: generalized weakness Psychiatric: encephalopathic ICD10 Worksheet Patient Problems: Problems Problem Status Onset Chronic back pain Acute Non-traumatic compression fracture of T11 thoracic vertebra Acute Back pain Acute Bronchiectasis Acute Bronchiectasis Acute Dyspnea Acute Fracture, lumbar vertebra, compression Acute Hyponatremia Acute Hypoxia Acute Leukocytosis Acute Mycobacterium avium-intracellulare complex Acute Pneumonia Acute Urinary tract infection Acute
[2017-08-28] MEDS ORDERED: oxyCODONE IR 15 MG TAB PO PRN (15:31)
[2017-08-28] MEDS ORDERED: traMADol 50 MG TAB PO PRN (15:33)
[2017-08-28] MEDS ORDERED: LORazepam 0.5 MG TAB PO SCH (16:00)
--- NOTE | 2017-08-28 17:09 | ASMTCMCOM ---
CM Note CM Note Notes: Spoke w/Dr Burgess today who said that pt and daughter were open to Hospice/palliative. Met w/pt's daughter w/Francisca from Palliative, discussed options of Hospice vs palliative; daughter expressed that she would like to try palliative first and felt that this is what her Dad would want also. She would like to use [facility]; referral sent and spoke w/Marcelino who will arrange w/daughter time to meet tomorrow w/pt and family. Discussed palliative care conference w/Dr Burgess. Also spoke w/Laine from [facility] where pt resides in Assisted Living. His is still in independant living there. Laine feels that pt would be best to have rehab stay prior to returning to [facility] since they cannot provide one on one care. Daughter feels strongly that she and her Dad would like for him to return home to [facility]. They are adamant about not wanting SNF at this time. He has a supervisor heading who comes 3 days/week from [facility] and daughter and spend much time w/pt as well. He is alone at night but is able to call for assistance when needed. Left voicemail at end of day to discuss w/Laine again. If [facility] will accept him back this may be difficult over the weekend as they have no nurse on weekend. CM will follow. Date Signed: 08/28/2017 05:08 PM Electronically Signed By:Muriel Chavez RN
[2017-08-29] MEDS: traMADol 50 MG TAB PO PRN ×2 (00:26→06:33)
[2017-08-29] MEDS: LORazepam 0.5 MG TAB PO PRN ×2 (06:33→17:12)
[2017-08-29] MEDS: ENOXAPARIN 40 MG/0.4 ML SYR SC SCH (08:59)
[2017-08-29] MEDS: CHOLECALCIFEROL VIT D3 1,000 UNITS TAB PO SCH (08:59)
[2017-08-29] MEDS: IBUPROFEN 200 MG TAB PO PRN (08:59)
[2017-08-29] MEDS: (Linaclotide [Linzess] 145 MCG) PO SCH (09:00)
[2017-08-29] MEDS: CALCIUM CARBONATE 500 MG TAB PO SCH ×2 (09:00→20:08)
[2017-08-29] MEDS: D5W NS 1,000 ML IV SCH (09:14)
[2017-08-29] MEDS: POLYETHYLENE GLYCOL 3350 17 GM PKT PO SCH (09:16)
[2017-08-29] MEDS: SENNOSIDES/DOCUSATE SODIUM TAB PO SCH ×2 (09:16→20:09)
[2017-08-29] MEDS ORDERED: fentaNYL 100 MCG/2 ML INJ IVP PRN (09:39)
[2017-08-29] MEDS: HYDROCODONE/APAP 5/325 TAB PO PRN ×3 (10:10→23:20)
--- NOTE | 2017-08-29 16:12 | ASMTCMCOM ---
CM Note CM Note Notes: [facility] w[facility] and family and family friend today for palliative care consult but during meeting they decided they would like to go with Hospice rather than palliative. Spent time w/family answering questions and discussing. Disccussed w/Dr Guallpa. Pt will likely be ready to DC Thursday if all parts of the dc plan are in place. Pt's daughter, Diane, will work on finding 24 hr care providers for his initial days at home and then will reassess need for this. Provided her w/numbers of agencies she was interested in. CM will be in touch with Laine at [facility] ([phone]) Thursday morning to discuss dc plan. I did leave voicemail with her today. CM will follow. Current dc plan: home to the [facility] w[facility] Date Signed: 08/29/2017 04:11 PM Electronically Signed By:Muriel Chavez RN
--- NOTE | 2017-08-29 16:55 | HOSPPROG ---
Hospitalist Progress Note Assessment/Plan: Subjective Follow-up on compression fractures and back pain Patient states his pain has been significant today. His nurse contacted me this morning and requested something stronger than tramadol for pain. His daughter states that anxiety seems to play a role with his pain as well. She notes that lorazepam has been helpful to address his pain complaints as well. I talked with social work msw and case today and does palliative Care did consult both were also looking at the possibility of hospice. Patient did have a bowel movement today. Otherwise no complaints of any abdominal pain. Patient does state his back pain is okay when he is not moving. Objective Vital signs as detailed below Physical exam General-patient is awake and alert conversant no acute distress mildly anxious appearing Cardiac-regular rate and rhythm no murmurs are appreciated Lungs-Clear to auscultation normal respiratory effort Abdomen-soft nontender nondistended no Yap catheter in place bowel sounds normal Extremities-compression devices in place Labs as detailed below Assessment plan 1. Compression fracture-patient is status post kyphoplasty. He has had a series of compression fractures over the past several months. Pain seems reasonably well controlled currently. I will continue with the current pain regimen in place. I will defer to palliative care if they want to make any adjustments. 2. 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 The treatment with antibiotic therapy had been decline. His baseline oxygen needs 3-[address] Martin follows him in outpatient setting. 3. Dysphagia-please refer to Dr. Burgess's notation from 08/28/2017 for further discussion of this issue. Essentially no further evaluation as for patient's comfort the patient and family would prefer to allow him to eat accepting the risks of possible aspiration pneumonia. 4. Vitamin-D deficiency-supplementation has been started 5. DVT prophylaxis-Lovenox 5. 6 disposition-palliative Care has consult today. I also reviewed with social work msw and hospice consult placed today as well. It sounds like we may be moving in direction of hospice care. Objective: Vital Signs Temp Pulse Resp BP Pulse Ox 36.8 C 79 15 109/72 98 08/29/17 15:41 08/29/17 15:41 08/29/17 15:41 08/29/17 15:41 08/29/17 15:41 Laboratory Results 08/28/17 04:38 08/29/17 04:40 08/28/17 08/29/17 08/30/17 05:59 05:59 05:59 Intake Total 2174 400 Output Total 700 400 300 Balance 1474 0 -300 PT 13.7 SEC (12.0-15.0) 08/26/17 12:30 INR 1.03 (0.83-1.16) 08/26/17 12:30 ICD10 Worksheet Patient Problems: Problems Problem Status Onset Chronic back pain Acute Non-traumatic compression fracture of T11 thoracic vertebra Acute Back pain Acute Bronchiectasis Acute Bronchiectasis Acute Dyspnea Acute Fracture, lumbar vertebra, compression Acute Hyponatremia Acute Hypoxia Acute Leukocytosis Acute Mycobacterium avium-intracellulare complex Acute Pneumonia Acute Urinary tract infection Acute
[2017-08-30] MEDS: LORazepam 0.5 MG TAB PO PRN ×3 (01:41→18:25)
[2017-08-30] MEDS: traMADol 50 MG TAB PO PRN (01:41)
[2017-08-30] MEDS: HYDROCODONE/APAP 5/325 TAB PO PRN ×5 (04:09→23:22)
[2017-08-30] MEDS: CHOLECALCIFEROL VIT D3 1,000 UNITS TAB PO SCH (09:58)
[2017-08-30] MEDS: ENOXAPARIN 40 MG/0.4 ML SYR SC SCH (09:58)
[2017-08-30] MEDS: CALCIUM CARBONATE 500 MG TAB PO SCH ×2 (09:58→20:55)
[2017-08-30] MEDS: POLYETHYLENE GLYCOL 3350 17 GM PKT PO SCH (09:59)
[2017-08-30] MEDS: SENNOSIDES/DOCUSATE SODIUM TAB PO SCH ×2 (10:00→21:24)
[2017-08-30] MEDS: (Linaclotide [Linzess] 145 MCG) PO SCH (11:27)
--- NOTE | 2017-08-30 13:49 | ASMTCMCOM ---
CM Note CM Note Notes: Updated patient info to [facility]. To discharge Thursday. Daughter working on 24 hr care. Date Signed: 08/30/2017 01:48 PM Electronically Signed By:Gabrielle Garcia LCSW
--- NOTE | 2017-08-30 15:18 | HOSPPROG ---
Hospitalist Progress Note Assessment/Plan: Subjective Follow-up on compression fractures and back pain No acute events overnight. Patient seems to be doing reasonably well with current pain medications in place. He did receive hydrocodone around 5:00 a.m. This morning. I discussed this case yesterday with his daughter as well as with case management. We have been considering palliative care and hospice. Objective Vital signs as detailed below Physical exam General-patient is awake and alert conversant. No acute distress Cardiac-regular rate and rhythm no murmurs appreciated. Lungs-Clear to auscultation with normal respiratory effort. Abdomen-soft nontender nondistended normal bowel sounds. no Yap catheter in place Extremities-compression devices in place. Labs as detailed below Assessment and plan 1. Compression fracture-the patient is status post kyphoplasty during this admission. He has had a series of compression fractures of the past several months. His pain level today on my evaluation seems well controlled. I would recommend that we continue with the current pain regimen and place but I will defer to palliative care family make any adjustments. 2. Chronic hypoxic respiratory failure-his baseline oxygen need is 3-4 years. His reportedly had of infection with mycobacterium avium in the past and no further antibiotic therapy is desired at this point time. Dr. Martin has been following him in the outpatient setting. 3. Dysphagia-please refer to Dr. Jin notation for 08/28/2017 for further discussion on the issue. Essentially no further evaluation as patient and family would prefer to allow him to eat accepting the risks of possible aspiration. 4. Vitamin-D deficiency-supplementation has been started. 5. DVT prophylaxis-Lovenox. 6. Disposition-awaiting discussions with family and case management regarding hospice care. Objective: Vital Signs Temp Pulse Resp BP Pulse Ox 36.3 C 76 18 118/71 93 08/30/17 12:00 08/30/17 12:00 08/30/17 12:00 08/30/17 12:00 08/30/17 12:00 Laboratory Results 08/28/17 04:38 08/29/17 04:40 08/29/17 08/30/17 08/31/17 05:59 05:59 05:59 Intake Total 400 Output Total 400 300 Balance 0 -300 PT 13.7 SEC (12.0-15.0) 08/26/17 12:30 INR 1.03 (0.83-1.16) 08/26/17 12:30 ICD10 Worksheet Patient Problems: Problems Problem Status Onset Chronic back pain Acute Non-traumatic compression fracture of T11 thoracic vertebra Acute Back pain Acute Bronchiectasis Acute Bronchiectasis Acute Dyspnea Acute Fracture, lumbar vertebra, compression Acute Hyponatremia Acute Hypoxia Acute Leukocytosis Acute Mycobacterium avium-intracellulare complex Acute Pneumonia Acute Urinary tract infection Acute
[2017-08-31] MEDS: traMADol 50 MG TAB PO PRN (00:58)
[2017-08-31] MEDS: IBUPROFEN 200 MG TAB PO PRN (00:58)
[2017-08-31] MEDS: LORazepam 0.5 MG TAB PO PRN ×2 (02:26→14:06)
[2017-08-31] MEDS: HYDROCODONE/APAP 5/325 TAB PO PRN ×3 (06:41→12:09)
[2017-08-31] MEDS: CHOLECALCIFEROL VIT D3 1,000 UNITS TAB PO SCH (08:52)
[2017-08-31] MEDS: CALCIUM CARBONATE 500 MG TAB PO SCH (08:52)
[2017-08-31] MEDS: ENOXAPARIN 40 MG/0.4 ML SYR SC SCH (08:52)
[2017-08-31] MEDS: (Linaclotide [Linzess] 145 MCG) PO SCH (08:53)
[2017-08-31] MEDS: POLYETHYLENE GLYCOL 3350 17 GM PKT PO SCH (10:34)
[2017-08-31] MEDS: SENNOSIDES/DOCUSATE SODIUM TAB PO SCH (10:34)
--- NOTE | 2017-08-31 12:07 | PDIAF ---
- Diagnosis Diagnosis: Vertebral Compression Fractures Code Status: Full Code - Medication Management Discharge Medications: Medications to Continue on Transfer Polyethylene Glycol 3350 [Miralax 17 gm (*)] 17 gm PO DAILY 06/10/17 [Last Taken 08/23/17] Methocarbamol [Robaxin 500 mg (*)] 250 mg PO TID 07/24/17 [Last Taken 08/23/17] Acetaminophen [Tylenol 325mg (*)] 650 mg PO Q4HRS PRN tab 07/25/17 [Last Taken Unknown] LORazepam [Ativan (*)] 0.5 mg PO QID PRN #60 tab 07/25/17 [Last Taken Unknown] Acetaminophen [Tylenol 325mg (*)] 650 mg PO Q4HRS PRN tab 08/31/17 [Last Taken Unknown] Calcium Carbonate [Oyster Shell Calcium 500 mg (*)] 500 mg PO BID tab 08/31/17 [Last Taken Unknown] Cholecalciferol Vit D3 [Vitamin D3 (*)] 5,000 units PO DAILY tab 08/31/17 [ Last Taken Unknown] Hydrocodone/APAP 5/325 [Parks 5/325 (*)] 1 - 2 tab PO Q4HRS PRN #30 tab [Last Taken Unknown] Ibuprofen [Motrin (*)] 400 mg PO Q8H PRN tab 08/31/17 [Last Taken Unknown] Discharge Medications: Refer to the Discharge Home Medication list for PRN reason. - Orders Services needed: Registered Nurse (For Hospice Care) Isolation Type: None Diet Recommendation: no restrictions on diet Diet Texture: Regular Texture Diet, Thin Liquids, Meds Whole w/Liquids, Meds Whole in Puree Additional Instructions: Patient transitioning to hospice care. - Follow Up Care Current Providers and Referrals: Patient,NotPresent [Unknown] - As per Instructions
[2017-08-31 12:11] VITALS: BP 139/78
--- NOTE | 2017-08-31 17:35 | GDS ---
[f rep st] DISCHARGE SUMMARY IN-HOSPITAL CONSULTANTS: Palliative Care and hospice. DISCHARGE DIAGNOSIS: Acute and chronic thoracic spine compression fractures. HISTORY OF PRESENT ILLNESS: The patient is a pleasant 81-year-old gentleman, with a past medical his tory of recent thoracic spine compression fractures initially diagnosed several months ago, who prese nted back to the [facility] Emergency Room with worsening pain. MRI imaging revealed a worsened 11th thoracic spine compression fracture. Two other thoracic compression fractures were noted to be stable. He did undergo kyphoplasty during this admission and seems to be doing reasonabl y well in regard to pain control currently. Consults with Palliative Care and hospice were done for goals of care and, ultimately, it was decided to transition to hospice care. The patient has an inde pendent living residence at [facility], and the plan is for transfer there at the time of discharg e for ongoing care. I have been working with Case Management, and they have made arrangements for ho spice. HOSPITAL COURSE BY PROBLEM: 1. Compression fracture of T11. There were 2 other compression fractures noted in the thoracic spin e which were stable. Patient had kyphoplasty performed during this admission on the T11 compression fracture. His pain has been reasonably well controlled over the prior days, and I recommended contin uing with the current hydrocodone/acetaminophen at 5/325 mg 1-2 tablets every 4 hours. 2. Chronic hypoxic respiratory failure. Patient has a baseline oxygen need of 3-4 L continuously. He is followed by Dr. Martin in the outpatient setting. He has had an infection with Mycobacterium av ium diagnosed in the past. No antibiotic therapy is planned at this time. 3. Dysphagia. No further evaluation was desired during the admission as, at this point in time, onofre walker would prefer to allow him to eat, acknowledging the risks of possible aspiration pneumonia. 4. Vitamin D deficiency. Vitamin D supplementation was started in the hospital at 5000 internationa l units daily. 5. Deep venous thrombosis prophylaxis. The patient was on Lovenox during this hospitalization. 6. The patient will be returning to his independent living at [facility] with hospice care in [facility]. PHYSICAL EXAMINATION: VITAL SIGNS: On day of discharge, temperature 36.5, blood pressure 112/58, he art rate 64, respirations 16, saturating 96% 2 L nasal cannula. GENERAL: Patient is sitting in a ch air at the bedside. He looked quite comfortable. He was awake, alert, conversant, no acute distress . HEART: Regular rate and rhythm. No murmurs appreciated. LUNGS: Clear on auscultation with norm al respiratory effort. ABDOMEN: Soft, nontender, nondistended. Normal bowel sounds. : No Yap catheter in place. EXTREMITIES: Compression devices were in place. NOTABLE STUDIES: Thoracic spine MRI from 08/25/2017: New compression fractures of T8, T11, and T12. Previously treated fractures of T9 and L1. Mild retropulsion of bone from T9 and L1 appear similar without evidence of thoracic spine cord compromise. MRI from 08/25/2017 showed treated compression fractures of L1 and L4. New mild superior endplate compression deformities of T12 and L5. Minimal f eatures of degenerative disk disease without discrete disk prolapse or neuronal impingement. Procalc itonin was 0.05. DISCHARGE MEDICATIONS: 1. Acetaminophen 650 mg every 4 hours as needed for mild pain or fever. 2. Calcium supplementation 500 mg twice a day. 3. Vitamin D3 at 5000 units daily. 4. Hydrocodone/acetaminophen 5/325 one to 2 tablets every 4 hours as needed. 5. Motrin 400 mg every 8 hours as needed for pain. 6. MiraLAX 17 g daily. 7. Robaxin 250 mg 3 times a day. 8. Ativan 0.5 mg p.o. q.i.d. p.r.n. 9. Patient has been having some loose stools, so I have opted to hold Linzess at the time of dischar ge. DISCHARGE INSTRUCTIONS: Patient will be transferred today to his independent living at [facility] with hospice in place. 35 minutes of time dedicated to discharge efforts. /[id number]/MODL
--- NOTE | 2017-09-03 12:05 | PQFORM ---
PHYSICIAN QUERY FORM Needs Your Response This query form is being sent to you to assure this patient record is coded properly. Please respond to the question below: BIOLOGY SPECIMEN TECHNICIAN QUESTION: Dr Valentino Patient noted with dysphasia as well as documentation of MRI with Aspiration Pneumonia however Aspiration Pneumonia was not documented in the Discharge Summary. Did this patient have Asp Pna ? ___ Yes ___ No ___ Other (Please Specify ) ___ Unable to Determine Thank You Ethel PEREZ Rug Receiving Clerk INSTRUCTIONS FOR RESPONSE: Answer question by clicking on the "Edit Document" button. Move cursor to area below the stars. When complete, hit "Save." Click on the "Sign" button, then click "Sign" again. Type in your PIN and hit "Enter." The MRI did not mention aspiration but mentioned infiltrate "suspicous for pneumonia". The final clinical diagnosis was that he did not have aspiration pneumonia MTDD
== END 2017-08-31 14:52 | disposition hospice, home (50) | DRG 516 ==
LOC: EDUNIT# → OBSVTOIN 11:40 → F3N 12:35
PROVIDERS: ADMIT Internal Medicine; ATTEND Internal Medicine
PROC: 0PU43JZ Supplement Thoracic Vertebra with Synthetic Substitute, Percutaneous Approach (ICD-10-PCS; principal; 2017-08-26)
PROC: 0PS43ZZ Reposition Thoracic Vertebra, Percutaneous Approach (ICD-10-PCS; principal; 2017-08-26)
DX: M80.08XA Age-related osteoporosis with current pathological fracture, vertebra(e), initial encounter for fracture (principal); R13.10 Dysphagia, unspecified; J44.9 Chronic obstructive pulmonary disease, unspecified; J96.11 Chronic respiratory failure with hypoxia; L89.211 Pressure ulcer of right hip, stage 1; E55.9 Vitamin D deficiency, unspecified; Z99.81 Dependence on supplemental oxygen; Z87.891 Personal history of nicotine dependence; Z86.711 Personal history of pulmonary embolism
CPT/HCPCS: 92610-GN; 96374; 97116-GP; 97162-GP; 97165-GO; 97168-GO; 97530-GP; 97535-GO; G0378; G8978-GP-CK; G8979-GP-CI; G8987-GO-CL; G8988-GO-CK; G8996-GN-CI; G8997-GN-CI; G8998-GN-CI; J0295; J1170; J1650; J2212; J2250; J2270; J2370; J2704; J3360